=== PATIENT | male | born 1940 | race Caucasian/White ===

== ENCOUNTER → 2017-02-15 | Outpatient (CLI) | payer OTHER ==
[~2017-02-15] MED LIST: ASPEC81; HYDC25 PO; LISI-725 PO; SIMV10TA2 PO
[2017-02-15 12:32] LABS: BASO % 0.1 %; BASO ABS # 0.01 K/uL (0-0.2); COMPLETE YES; EOS % 5.3 %; HEMATOCRIT 45.7 % (42-52); IG% 0.3 %; LYMPH % 30.7 %; LYMPH ABS # 2.19 K/uL (1.2-3.4); MEAN CORPUSCULAR HEMOGLOBIN 30.7 pg (25-34); MEAN CORPUSCULAR HGB CONC 33.7 g/dl (32-36); MEAN PLATELET VOLUME 9.3 fL (7.4-10.4); MONO % 11.3 %; NEUT % 52.3 %; PLATELET COUNT 236 K/uL (130-400); RED BLOOD COUNT 5.02 M/uL (4.7-6.1); WHITE BLOOD COUNT 7.14 K/uL (4.8-10.8)
[2017-02-15 12:49] LABS: ESTIMATED AVERAGE GLUCOSE 126 mg/dl; HA1C FLAG Normal (Normal)
[2017-02-15 12:58] LABS: ALT/SGPT 43 U/L (12-78); AST/SGOT 26 U/L (15-37); BLOOD UREA NITROGEN 14 mg/dl (7-18); BUN/CREATININE RATIO 12.8 (10-20); CARBON DIOXIDE 30 mmol/L (21-32); CHLORIDE 102 mmol/L (98-107); CHOLESTEROL 149 mg/dl (0-200); GLUCOSE 99 mg/dl (70-99); SODIUM 139 mmol/L (136-145)
[2017-02-15 13:01] LABS: ALB/GLOB RATIO 1.2 (0.9-2); ALKALINE PHOSPHATASE 56 U/L (45-117); CHOLESTEROL/HDL RATIO 2.7; HDL CHOLESTEROL 56 mg/dl; LDL CHOLESTEROL CALCULATED 83 mg/dl; TRIGLYCERIDES 52 mg/dl (0-150); VERY LOW DENSITY LIPOPROT CALC 10 mg/dl
[2017-02-15 13:02] LABS: URINE APPEARANCE CLEAR (CLEAR); URINE BILIRUBIN NEG (NEG); URINE COLOR YELLOW; URINE EPITHELIAL CELL AUTO 0-5 /lpf (0-5); URINE NITRITE NEG (NEG); URINE PH 6.5 (4.5-7.5); URINE SPECIFIC GRAVITY 1.012 (1.000-1.030); UROBILINOGEN NEG (NEG); ZZUR CULT IF INDIC CLEAN CATCH NO
[2017-02-15 13:06] LABS: MANUAL MICROSCOPIC REQUIRED? NO; REVIEW REQ? NO
[2017-02-15 13:12] LABS: CALCIUM 9.2 mg/dl (8.5-10.1)
--- NOTE | 2017-02-21 08:43 | CODING QUERY MEDICAL NECESSITY ---
SUPPORTING DIAGNOSIS NEEDED Dr. Sharma, A supporting diagnosis is required for the test/procedure performed on this patient in order for us to be reimbursed by the patient's insurance. Please provide a supporting diagnosis for the following test/procedure listed below next to the test name along with your signature. *If there is no additional diagnosis for this patient that would support the following test/procedure please document that below next to the test/procedure. Test(s)/Procedure(s) that require a supporting diagnosis: * [id number] GLYCATED HEMOGLOBIN DIAGNOSIS: DATE OF SERVICE: 02/15/17 Provider Signature: Date: Thank you [facility] Information Management Once completed, please kindly fax back to [phone] For questions please call [phone]
== END | disposition home or self-care (01) ==
LOC: C.LABBFT 07:48
PROVIDERS: ATTEND Internal Medicine
DX: R73.03 Prediabetes (principal); E55.9 Vitamin D deficiency, unspecified; E78.5 Hyperlipidemia, unspecified

== ENCOUNTER 2017-12-08 21:01 | Emergency (ER) | payer OTHER ==
[~2017-12-08] VITALS: Ht 170.2 cm; Wt 98.5 kg
[~2017-12-08 21:01] MED LIST changes: -ASPEC81; +ASPEC81 PO
[2017-12-08 21:04] VITALS: Ht 170.2 cm; Wt 98.5 kg
[2017-12-08] MEDS ORDERED: DILT240C48 PO (21:54)
[2017-12-08] MEDS ORDERED: FINA5TAB PO (21:56)
[2017-12-08] MEDS ORDERED: LPT/40 PO (21:56)
[2017-12-08] MEDS ORDERED: FLM4 PO (21:56)
--- NOTE | 2017-12-08 22:00 | EMERGENCY ROOM VISIT NOTE ---
History Report prepared by Est[place]: Emily Richardson Under the Supervision of: Doug BernardoO. First contact with patient: 21:30 Chief Complaint: FALL Stated Complaint: FALL, LACERATION ON ARM & HEAD, ETOH History of Present Illness The patient is a 77 year old male who presents to the Emergency Room with complaints of persistent head trauma that occurred secondary to falling prior to arrival. He reports that he was drinking heavily prior to his fall. A family friend states that the patient was stumbling while walking, noting the patient fell while walking up the stairs and hit his head on a large rock. The family friend states that the patient lost consciousness for a few minutes and when he woke up, he did not remember falling. The patient denies any current pain. He notes that his Tetanus shot is up to date. HPI limited due to patient being intoxicated. Source of History: patient History Limited By: intoxication Onset: prior to arrival Position: head Quality: other (head trauma) Timing: other (persistent) Associated Symptoms: + LOC Review of Systems See HPI for pertinent positives & negatives. A total of 10 systems reviewed and were otherwise negative. 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 Family History Diabetes mellitus Heart disease Hypertension Social History Smoking Status: Never Smoker Alcohol Use: none Drug Use: none Marital Status: Occupation Status: retired Current/Historical Medications Scheduled Aspirin Enteric Coated (Ecotrin Or Generic *), 1 TAB PO HS Atorvastatin (Lipitor), 40 MG PO HS Diltiazem Hcl Coated Beads (Cartia Xt), 1 CAP PO QAM Finasteride (Proscar), 5 MG PO QAM Hydrochlorothiazide (Hctz *), 25 MG PO HS Lisinopril (Zestril), 20 MG PO DAILY Tamsulosin HCl (Tamsulosin HCl), 1 TAB PO HS Allergies Coded Allergies: No Known Allergies (Verified , 12/08/17) Physical Exam Vital Signs Date Time Temp Pulse Resp B/P (MAP) Pulse Ox O2 Delivery O2 Flow Rate FiO2 12/08/17 23:56 82 18 128/87 95 12/08/17 22:22 56 20 98 Room Air 12/08/17 21:50 Room Air 12/08/17 21:11 56 12/08/17 21:04 57 19 163/77 97 Room Air Physical Exam GENERAL: Patient is awake, alert, non-anxious, but intoxicated. EYES: The conjunctivae are clear. The pupils are round and reactive. EARS, NOSE, MOUTH AND THROAT: 2.5cm laceration on occipital scalp. The nose is without any evidence of any deformity. Mucous membranes are moist tongue is midline NECK: Poorly fitting cervical collar applied prior to arrival. No tenderness noted. Range of motion appeared unrestricted. RESPIRATORY: Normal respiratory effort is noted there is no evidence of wheezing rhonchi or rales CARDIOVASCULAR: Regular rate and rhythm noted there no murmurs rubs or gallops normal S1 normal S2 GASTROINTESTINAL: The abdomen is soft. Bowel sounds are present in all quadrants. Abdomen is nontender PELVIS: The Pelvis is stable. No tenderness to palpation is noted. BACK: No midline tenderness or or step-off noted range of motion in flexion extension as well as rotation no signs of muscle spasm noted MUSCULOSKELETAL/EXTREMITIES: There is no evidence of gross deformity full range of motion is noted in the hips and shoulders SKIN: Skin tare on right forearm, no active bleeding noted. NEUROLOGIC: Intoxicated but oriented to person, place, and situation. Moves all extremities well. Medical Decision & Procedures ER Provider Diagnostic Interpretation: Radiology results as stated below per my review and radiologist interpretation: CERVICAL SPINE W/O CLINICAL HISTORY: 77 years-old Male presenting with fall, posterior head laceration. TECHNIQUE: Multidetector CT of the cervical spine was performed without the use of intravenous contrast. IV contrast: None. A dose lowering technique was used consistent with the principles of ALARA (as low as reasonably achievable). COMPARISON: None. CT DOSE (mGy.cm): The estimated cumulative dose is 2038.83 mGy.cm. FINDINGS: Precision Agronomist topogram: Unremarkable. Straightening of normal cervical lordosis. No acute fracture or subluxation. Vertebral bodies maintain normal height and alignment. Intervertebral disc height loss noted at C5-6 and C6-7. Facet arthropathy also evident. No significant bony spurring to narrow the spinal canal. Disc osteophyte complexes/uncovertebral hypertrophy and facet arthropathy result in osseous neural foraminal narrowing on the right at its 3, severe left at C3-4, moderate bilateral at C5-6, and mild bilateral at C6-7. Fluid noted in the left mastoid air cells. Skull base intact. Lung apices clear. IMPRESSION: 1. No acute osseous injury. 2. Multilevel degenerative changes with very degrees of osseous neural foraminal narrowing. Electronically signed by: Alli Farfan M.D. 12/08/2017 10:21 PM Dictated Date/Time: 12/08/2017 10:16 PM HEAD WITHOUT CONTRAST (CT) CLINICAL HISTORY: 77 years-old Male presenting with fall. TECHNIQUE: Multidetector CT imaging of the head was performed without the use of intravenous contrast. IV contrast: None. A dose lowering technique was used consistent with the principles of ALARA (as low as reasonably achievable). COMPARISON: None. CT DOSE (mGy.cm): The estimated cumulative dose is 2038.83 inclusive of the cervical spine. FINDINGS: Precision Agronomist topogram: Unremarkable. Ventricles and sulci normal in size. Brain parenchyma normal in appearance with preserved martinez-white differentiation. No mass effect or midline shift. No hemorrhage or acute territorial infarct. No extra-axial fluid collection. Thickening in the right maxillary sinus. Calvarium intact. IMPRESSION: 1. No acute intracranial abnormality. Electronically signed by: Alli Farfan M.D. 12/08/2017 10:16 PM Dictated Date/Time: 12/08/2017 10:14 PM Laboratory Results 12/08/17 22:43 Test 12/08/17 22:43 Anion Gap 10.0 mmol/L (3-11) Est Creatinine Clear Calc Drug Dose 72.8 ml/min Estimated GFR () 89.1 Estimated GFR (Non- 76.9 BUN/Creatinine Ratio 17.7 (10-20) Calcium Level 8.8 mg/dl (8.5-10.1) Ethyl Alcohol mg/dL 169.0 mg/dl (0-3) Laboratory results per my review. Procedure Location: occipital scalp Total length: 2.5 cm Complexity: low Verbal consent was obtained after the risks and benefits were explained, including but not limited to bleeding, scarring, infection, pain, and bone/joint /nerve damage. At this time, the risks of the procedure are less than the risks of NOT performing the procedure. A time out was taken and the correct patient and site identified. The skin was prepped with betadine. Copious irrigation was performed using normal saline solution. The skin was re-prepped with betadine and a sterile field set. The wound was explored for foreign bodies and none found. Examination revealed no injury to deep structures such as tendons, bone, or significant blood vessels. Debridement was not performed. The wound edges were approximated using 11 skin coral. Hemostasis and excellent approximation was achieved. Antibacterial ointment and a sterile dressing applied. Detailed wound care instructions and signs and symptoms of infection reviewed with the patient and friends. No complications and the patient tolerated the procedure well. ED Course 2131: The patient was evaluated in room B6. A complete history and physical examination were performed. 2302: Upon reevaluation, the patient is resting comfortably. I discussed the results and treatment plan with him and his friends. They verbalized agreement of the treatment plan. The patient was discharged home. Medical Decision Prior records/ancillary studies reviewed. Triage Nursing notes reviewed. Additional history obtained from a family friend who was present during the fall. The patient's history was concerning for traumatic injury Differential diagnosis: Etiologies such as fracture, dislocation, intra-abdominal, pneumothorax, intrathoracic , intracranial, neurologic, as well as other traumatic pathologies were entertained. The patient is a 77-year-old male who presented to the emergency department for an evaluation of head injury. The patient arrived with family friends. He was walking upstairs and fell striking the back of his head. He also suffered a skin tear to his right forearm. According to the family friends the patient did have a loss of consciousness and was somewhat confused afterwards but admitted to drinking alcohol prior to the fall. The patient had the laceration repaired using skin coral. He also had wound care of the right forearm through nursing. I discussed the patient's laboratory and radiographic studies with him. He was reevaluated multiple times. He was much less clinically intoxicated on final reevaluation. He was encouraged to follow-up with his primary care physician as soon as possible. He was also encouraged to have coral removed in 7-10 days. I also recommended that he avoid any further alcoholic beverages for the next 24 hours. He was also encouraged to avoid operating any heavy machinery including driving a vehicle for next 24 hours. Head Trauma GCS Score: 15 Medication Reconcilliation Current Medication List: was personally reviewed by me Blood Pressure Screening Patient's blood pressure: Elevated blood pressure Blood pressure disposition: Elevated BP felt to be situational Impression Primary Impression: Alcohol intoxication Additional Impressions: Fall Head injury Skin tear of forearm without complication Occipital scalp laceration Scribe Attestation The scribe's documentation has been prepared under my direction and personally reviewed by me in its entirety. I confirm that the note above accurately reflects all work, treatment, procedures, and medical decision making performed by me. Departure Information Dispostion Home / Self-Care Referrals Albert Sharma M.D. (PCP) Forms HOME CARE DOCUMENTATION FORM, IMPORTANT VISIT INFORMATION Patient Instructions My [facility] Additional Instructions Continue using Tylenol as directed for pain. Follow-up with your family doctor for recheck this week. I would recommend having the coral removed in 7-10 days. Do not operate any heavy machinery including driving a vehicle for the next 24 hours. Problem Qualifiers Primary Impression: Alcohol intoxication Complication of substance-induced condition: uncomplicated Qualified Codes: F10.920 - Alcohol use, unspecified with intoxication, uncomplicated Additional Impressions: Fall Encounter type: initial encounter Qualified Codes: W19.XXXA - Unspecified fall, initial encounter Head injury Encounter type: initial encounter Qualified Codes: S09.90XA - Unspecified injury of head, initial encounter Skin tear of forearm without complication Encounter type: initial encounter Laterality: right Qualified Codes: S51.811A - Laceration without foreign body of right forearm, initial encounter Occipital scalp laceration Encounter type: initial encounter Qualified Codes: S01.01XA - Laceration without foreign body of scalp, initial encounter
--- NOTE | 2017-12-08 22:18 | DIAGNOSTIC IMAGING REPORT ---
HEAD WITHOUT CONTRAST (CT) CLINICAL HISTORY: 77 years-old Male presenting with fall. TECHNIQUE: Multidetector CT imaging of the head was performed without the use of intravenous contrast. IV contrast: None. A dose lowering technique was used consistent with the principles of ALARA (as low as reasonably achievable). COMPARISON: None. CT DOSE (mGy.cm): The estimated cumulative dose is 2038.83 inclusive of the cervical spine. FINDINGS: Plodding Operator topogram: Unremarkable. Ventricles and sulci normal in size. Brain parenchyma normal in appearance with preserved martinez-white differentiation. No mass effect or midline shift. No hemorrhage or acute territorial infarct. No extra-axial fluid collection. Thickening in the right maxillary sinus. Calvarium intact. IMPRESSION: 1. No acute intracranial abnormality. Electronically signed by: Alli Farfan M.D. 12/08/2017 10:16 PM Dictated Date/Time: 12/08/2017 10:14 PM
--- NOTE | 2017-12-08 22:22 | DIAGNOSTIC IMAGING REPORT ---
CERVICAL SPINE W/O CLINICAL HISTORY: 77 years-old Male presenting with fall, posterior head laceration. TECHNIQUE: Multidetector CT of the cervical spine was performed without the use of intravenous contrast. IV contrast: None. A dose lowering technique was used consistent with the principles of ALARA (as low as reasonably achievable). COMPARISON: None. CT DOSE (mGy.cm): The estimated cumulative dose is 2038.83 mGy.cm. FINDINGS: Animal Scientist topogram: Unremarkable. Straightening of normal cervical lordosis. No acute fracture or subluxation. Vertebral bodies maintain normal height and alignment. Intervertebral disc height loss noted at C5-6 and C6-7. Facet arthropathy also evident. No significant bony spurring to narrow the spinal canal. Disc osteophyte complexes/uncovertebral hypertrophy and facet arthropathy result in osseous neural foraminal narrowing on the right at its 3, severe left at C3-4, moderate bilateral at C5-6, and mild bilateral at C6-7. Fluid noted in the left mastoid air cells. Skull base intact. Lung apices clear. IMPRESSION: 1. No acute osseous injury. 2. Multilevel degenerative changes with very degrees of osseous neural foraminal narrowing. Electronically signed by: Alli Farfan M.D. 12/08/2017 10:21 PM Dictated Date/Time: 12/08/2017 10:16 PM
[2017-12-08 23:17] LABS: CALCIUM 8.8 mg/dl (8.5-10.1); CREATININE 0.95 mg/dl (0.60-1.40); POTASSIUM 3.4 mmol/L (3.5-5.1)
[2017-12-08 23:56] VITALS: BP 128/87; PULSE 82; O2SAT 95
== END 2017-12-08 23:57 | disposition home or self-care (01) ==
LOC: EDBD 21:01 → C.EDB 21:02
DX: S01.01XA Laceration without foreign body of scalp, initial encounter (principal); S51.811A Laceration without foreign body of right forearm, initial encounter; W01.198A Fall on same level from slipping, tripping and stumbling with subsequent striking against other object, initial encounter; F10.920 Alcohol use, unspecified with intoxication, uncomplicated; R40.2412 Glasgow coma scale score 13-15, at arrival to emergency department; I10 Essential (primary) hypertension; E78.5 Hyperlipidemia, unspecified; Z79.82 Long term (current) use of aspirin; Z83.3 Family history of diabetes mellitus; Z82.49 Family history of ischemic heart disease and other diseases of the circulatory system

== ENCOUNTER → 2017-12-13 | Outpatient (CLI) | payer OTHER ==
[~2017-12-13] MED LIST changes: +DILT240C48 PO; +FINA5TAB PO; +FLM4 PO; +LPT/40 PO; -SIMV10TA2 PO
[2017-12-13 12:51] LABS: ALT/SGPT 49 U/L (12-78); BLOOD UREA NITROGEN 17 mg/dl (7-18); CARBON DIOXIDE 29 mmol/L (21-32); CHOLESTEROL 135 mg/dl (0-200); CREATININE 1.13 mg/dl (0.60-1.40); GLUCOSE 100 mg/dl (70-99); POTASSIUM 3.6 mmol/L (3.5-5.1); SODIUM 134 mmol/L (136-145)
[2017-12-13 12:55] LABS: ALKALINE PHOSPHATASE 74 U/L (45-117); AST/SGOT 32 U/L (15-37); LDL CHOLESTEROL CALCULATED 69 mg/dl; TOTAL PROTEIN 7.4 gm/dl (6.4-8.2)
== END | disposition home or self-care (01) ==
LOC: C.LABBFT 09:32
PROVIDERS: ATTEND Internal Medicine
DX: R09.82 Postnasal drip (principal); E78.5 Hyperlipidemia, unspecified; I10 Essential (primary) hypertension

== ENCOUNTER 2022-02-09 10:08 | Inpatient (IN) ==
[2022-02-09] MEDS ORDERED: FUROSEMIDE 40 MG/4 ML VIAL IV ONE ×2 (10:26→13:37)
--- NOTE | 2022-02-09 10:43 | Emergency Department Note ---
History of Present Illness General Chief complaint: Respiratory Problems Stated complaint: HARD TO BREATHE, CHEST PAIN, A LOT OF PHLEM Time Seen by Provider: 02/09/22 10:22 Source: patient Mode of arrival: ambulatory Limitations: physical limitation History of Present Illness Provider complaint: shortness of breath This is an 81-year-old male who presents with family at bedside due to concern for shortness of breath. Triage nurses concern for patient appearance due to increased work of breathing and noted hypoxia, he was immediately placed in a bed. Patient was placed on oxygen via nasal cannula initially. Upon initially evaluating the patient I immediately called RT for BiPAP. Patient is significantly hard of hearing and with increased work of breathing was unable to provide extensive history. Family at bedside was to help with history. Family stated patient became significantly short of breath this morning. No prior history of COPD, no history of CHF or other heart problems that they are aware of. Family states his HCTZ was stopped on Saturday due to concern for dizziness. Patient denies any chest pain or leg swelling. He denies fevers, chills, or recent URI symptoms. He does admit to a slight cough. With additional questioning, family eventually added the patient has been sleeping in his recliner over the last several nights as it was harder to lay flat to sleep. Patient denies any pain anywhere at this time. No prior similar events. Pt seen during a time of high acuity and national emergency pandemic while wearing PPE. Home Medications Medication Instructions Recorded Confirmed Type atorvastatin 40 mg tablet 40 mg PO DAILY #90 tab 04/07/21 02/09/22 Rx finasteride 5 mg tablet 5 mg PO DAILY #90 tab 09/27/21 02/09/22 Rx diltiazem HCl 240 mg 240 mg PO DAILY #90 cap 09/28/21 02/09/22 Rx capsule,extended release 24 hr (Cartia XT) tamsulosin 0.4 mg capsule 0.4 mg PO DAILY #90 cap 10/03/21 02/09/22 Rx lisinopril 20 mg tablet 20 mg PO DAILY #90 tab 01/30/22 02/09/22 Rx omega 3,6,9 combination no.7 92 mg 92 mg PO DAILY 02/09/22 02/09/22 History (43 mg-22 [id number]) chew tablet Allergies Allergy/AdvReac Type Severity Reaction Status Date / Time No Known Drug Allergies Allergy Verified 02/09/22 12:34 Past Med/Surg History Medical History (Updated 02/10/22 @ 16:59 by Violeta Blackwood DO) Benign prostatic hyperplasia Disequilibrium Hearing loss Hypertension Male erectile disorder of organic origin Mitral regurgitation Prediabetes Tinnitus Vitamin D deficiency Surgical History History of transurethral prostatectomy (09/14/12) Family History Father Colorectal cancer Mother Cancer Brother Laryngeal cancer Sister Alzheimer disease Other No family history of adverse response to anesthesia No family history of bleeding disorder Denies family history of Ovarian cancer Prostate cancer Breast cancer Social History Smoking Status: Never smoker Age Started Using Tobacco: 15; Second Hand Exposure: No; Hx Alcohol Use: Yes Alcohol type: beer Alcohol Intake Frequency Comment: About 2 alcoholic beverages per day Hx Substance Use: No Preferred Language: Iraqi Communication Ability: Effective Visual Impairment: No Limitations Hearing Ability: Use of Hearing Aid marital status: / Current Living Situation: Alone current occupational status: retired Feels Safe at Home: Yes caffeine: Yes Dental Care, Regularly: No Physical Activity Frequency: 1-2 Times per Week Seatbelt Use: always Review of Systems A total of 10 systems reviewed and were otherwise negative All systems reviewed & are unremarkable except as noted in HPI & below Physical Exam Vital Signs Vital Signs - 24 hr 02/09/22 10:09 02/09/22 10:10 02/09/22 10:15 Temperature 36.4 C L Temperature Source Temporal Artery Scan Pulse Rate 122 H Pulse Rate [Apical] Respiratory Rate 22 Respiratory Effort / Characteristics Respiratory Depth Respiratory Pattern Blood Pressure [Left Arm] Blood Pressure Mean [Left Arm] Blood Pressure Position [Left Arm] Pulse Oximetry 90 88 L Oxygen Delivery Method Room Air Room Air Room Air Oxygen Flow Rate Fraction of Inspired Oxygen SaO2/FiO2 Ratio Sepsis Recent Fever Within 48 Hours No Sepsis New/Unexplained Change in Mental Status N/A Sepsis Action Taken by Nursing No Action Required 02/09/22 10:20 02/09/22 10:32 02/09/22 12:00 Temperature Temperature Source Pulse Rate 117 H Pulse Rate [Apical] 123 H 88 Respiratory Rate 34 H 40 H 21 Respiratory Effort / Characteristics Non-Labored Spontaneous Spontaneous Labored Short of Breath Non-Labored Spontaneous Respiratory Depth Normal Normal Respiratory Pattern Tachypnea Blood Pressure [Left Arm] 152/121 H 117/75 Blood Pressure Mean [Left Arm] 131 89 Blood Pressure Position [Left Arm] Sitting Sitting Pulse Oximetry 91 94 95 Oxygen Delivery Method Nasal Cannula BiPAP Oxygen Flow Rate 2 Fraction of Inspired Oxygen 30 SaO2/FiO2 Ratio Sepsis Recent Fever Within 48 Hours Sepsis New/Unexplained Change in Mental Status Sepsis Action Taken by Nursing 02/09/22 12:30 02/09/22 13:15 02/09/22 13:25 Temperature Temperature Source Pulse Rate Pulse Rate [Apical] 96 H 110 H 118 H Respiratory Rate 18 18 28 H Respiratory Effort / Characteristics Non-Labored Spontaneous Non-Labored Labored Respiratory Depth Normal Respiratory Pattern Blood Pressure [Left Arm] 147/87 H 163/118 H 146/105 H Blood Pressure Mean [Left Arm] 107 133 118 Blood Pressure Position [Left Arm] Pulse Oximetry 100 93 96 Oxygen Delivery Method BiPAP Nasal Cannula BiPAP Oxygen Flow Rate 3 Fraction of Inspired Oxygen 30 SaO2/FiO2 Ratio 320 Sepsis Recent Fever Within 48 Hours Sepsis New/Unexplained Change in Mental Status Sepsis Action Taken by Nursing GENERAL: alert, ill appearing, well nourished, severe distress, non-toxic, [place] EYE EXAM: normal conjunctiva, PERRL and EOM's grossly intact OROPHARYNX: no exudate, no erythema, lips, buccal mucosa, and tongue normal and mucous membranes are moist NECK: supple, no nuchal rigidity, no adenopathy, non-tender LUNGS: Tachypnea, increased work of breathing, rales bilaterally throughout, accessory muscle use noted HEART: no murmurs, S1 normal and S2 normal ABDOMEN: abdomen soft, non-tender, normo-active bowel sounds, no masses, no rebound or guarding. BACK: Back is symmetrical on inspection and there is no deformity, no midline tenderness, no CVA tenderness. SKIN: no rashes and no bruising, diaphoretic UPPER EXTREMITIES: upper extremities are grossly normal. FROM, nml pulses b/l. LOWER EXTREMITIES: 1+ b/l pitting edema. FROM, nml pulses b/l. NEURO EXAM: Normal sensorium, cranial nerves II-XII grossly intact, normal speech, no gross weakness of arms, no gross weakness of legs. Gross sensation intact. Course Course 1032: RT called and at bedside. 1048: Patient states BIPAP helping, still with incr WOB and tachypnea. 1105: Heart rate improved, patient's tachypnea slowly resolving. Patient continues to state the BiPAP helps. Administered Medications Discontinued Medications Aspirin (Aspirin Chew 324 Mg) 324 mg PO NOW STA Stop: 02/09/22 12:26 Last Admin: 02/09/22 12:45 Dose: 324 mg Documented by: [id number] Furosemide (Furosemide 40 Mg/4 Ml Vial) 40 mg IV ONE ONE Stop: 02/09/22 10:27 Last Admin: 02/09/22 10:33 Dose: 40 mg Documented by: [id number] Furosemide (Furosemide 40 Mg/4 Ml Vial) Confirm Administered Dose 40 mg IV .STK- MED ONE Stop: 02/09/22 13:38 Last Admin: 02/09/22 13:40 Dose: 40 mg Documented by: [id number] Nitroglycerin (Nitroglycerin 2% Ointment 30gm Tube) 1 inch EXT NOW STA Stop: 02/09/22 12:32 Last Admin: 02/09/22 12:44 Dose: 1 inch Documented by: [id number] Nitroglycerin/Dextrose (Nitroglycerin/D5w 100 Mcg/Ml Btl) Confirm Administered Dose 25 mg .ROUTE .STK-MED ONE Stop: 02/09/22 13:34 Last Admin: 02/09/22 13:41 Dose: 10 mcg Documented by: [id number] Cosigned by: [id number] Critical Care Time Critical Care Time: Yes Total Critical Care Time: 48 Critical care of 48 min performed to assess and manage high likelihood of life- threatening respiratory failure, involving labs and imaging performed with assessment to evaluate respiratory failure diagnosis with frequent reassessment. This time includes bedside time, treatment discussions with patient/family/consultants, documentation time and excludes procedure time. Medical Decision Making Differential Diagnosis Differential diagnoses includes but is not limited to pneumonia, bronchitis, COPD/Asthma exacerbation, pneumothorax, pulmonary embolism, congestive heart fa ilure, acute coronary syndrome Medical Records Attestation: I reviewed the patient's medical records. Home Medications Current Medication List: was personally reviewed by me Laboratory Data Attestation: I reviewed the patient's lab results. Result diagrams: 02/09/22 10:30 02/09/22 11:26 Lab Results 02/09/22 02/09/22 02/09/22 Range/Units 10:30 10:30 10:30 WBC 14.79 H (4.8-10.8) K/uL RBC 4.57 L (4.7-6.1) M/uL Hgb 14.2 (14.0-18.0) g/dL Hct 42.5 (42-52) % MCV 93.0 (80-100) fL MCH 31.1 (25-34) pg MCHC 33.4 (32-36) g/dL RDW Std Deviation 44.1 (36.4-46.3) fL RDW Coeff of Asiya 13.0 (11.5-14.5) % Plt Count 263 (130-400) K/uL MPV 10.0 (7.4-10.4) fL Immature Gran % (Auto) 0.2 % Neut % (Auto) 69.8 % Lymph % (Auto) 21.4 % [place] % (Auto) 7.4 % Eos % (Auto) 1.1 % Baso % (Auto) 0.1 % Neut # (Auto) 10.31 H (1.4-6.5) K/uL Lymph # (Auto) 3.16 (1.2-3.4) K/uL [place] # (Auto) 1.10 H (0.11-0.59) K/uL Eos # (Auto) 0.17 (0-0.5) K/uL Baso # (Auto) 0.02 (0-0.2) K/uL Immature Gran # (Auto) 0.03 H (0.00-0.02) K/uL PT 10.8 (9.0-12.0) Seconds INR 1.0 (0.9-1.1) APTT 26.3 (21.0-31.0) Seconds PTT Ratio 1.0 POC pH (7.35-7.45) POC pCO2 (35-46) mmHg POC pO2 (80-95) mmHg POC HCO3 (19-24) aida/L POC Total CO2 (24-31) mmol/L POC Base Excess (-9-1.8) aida/L POC ABG O2 Sat (90-95) % Sodium (136-145) mmol/L Potassium (3.5-5.1) mmol/L Chloride (98-107) mmol/L Carbon Dioxide (21-32) mmol/L Anion Gap (3-11) BUN (6-23) mg/dl Creatinine (0.6-1.4) mg/dl Est Cr Clr Drug Dosing ml/min Est GFR ( Amer) ml/min Est GFR (Non-Af Amer) ml/min BUN/Creatinine Ratio (10-20) Glucose (70-99(Fasting)) mg/dl Calcium (8.5-10.1) mg/dl Magnesium (1.7-2.4) mg/dl Total Bilirubin (0.2-1.0) mg/dl AST (13-39) U/L ALT (7-52) U/L Alkaline Phosphatase (34-104) U/L Troponin I High Sens (0-20) pg/ml B-Natriuretic Peptide 335 H (0-100) pg/ml Total Protein (6.0-8.3) gm/dl Albumin (3.4-5.0) gm/dl Globulin (2.5-4.0) gm/dl Albumin/Globulin Ratio (0.9-2) SARS-CoV-2 (PCR) (Negative) Influenza Type A (PCR) (Neg) Influenza Type B (PCR) (Neg) RSV (RT-PCR) (Neg) 02/09/22 02/09/22 02/09/22 Range/Units 10:43 11:26 14:32 WBC (4.8-10.8) K/uL RBC (4.7-6.1) M/uL Hgb (14.0-18.0) g/dL Hct (42-52) % MCV (80-100) fL MCH (25-34) pg MCHC (32-36) g/dL RDW Std Deviation (36.4-46.3) fL RDW Coeff of Asiya (11.5-14.5) % Plt Count (130-400) K/uL MPV (7.4-10.4) fL Immature Gran % (Auto) % Neut % (Auto) % Lymph % (Auto) % [place] % (Auto) % Eos % (Auto) % Baso % (Auto) % Neut # (Auto) (1.4-6.5) K/uL Lymph # (Auto) (1.2-3.4) K/uL [place] # (Auto) (0.11-0.59) K/uL Eos # (Auto) (0-0.5) K/uL Baso # (Auto) (0-0.2) K/uL Immature Gran # (Auto) (0.00-0.02) K/uL PT (9.0-12.0) Seconds INR (0.9-1.1) APTT (21.0-31.0) Seconds PTT Ratio POC pH 7.38 (7.35-7.45) POC pCO2 43 (35-46) mmHg POC pO2 63 L (80-95) mmHg POC HCO3 25 H (19-24) aida/L POC Total CO2 26 (24-31) mmol/L POC Base Excess 0.0 (-9-1.8) aida/L POC ABG O2 Sat 91.0 (90-95) % Sodium 135 L (136-145) mmol/L Potassium 3.8 (3.5-5.1) mmol/L Chloride 102 (98-107) mmol/L Carbon Dioxide 25 (21-32) mmol/L Anion Gap 8 (3-11) BUN 16 (6-23) mg/dl Creatinine 1.19 (0.6-1.4) mg/dl Est Cr Clr Drug Dosing 49.7 ml/min Est GFR ( Amer) 66.0 ml/min Est GFR (Non-Af Amer) 56.9 ml/min BUN/Creatinine Ratio 13.4 (10-20) Glucose 189 H (70-99(Fasting)) mg/dl Calcium 9.2 (8.5-10.1) mg/dl Magnesium 2.0 (1.7-2.4) mg/dl Total Bilirubin 0.5 (0.2-1.0) mg/dl AST 22 (13-39) U/L ALT 20 (7-52) U/L Alkaline Phosphatase 62 (34-104) U/L Troponin I High Sens 478.1 H* (0-20) pg/ml B-Natriuretic Peptide (0-100) pg/ml Total Protein 6.9 (6.0-8.3) gm/dl Albumin 4.2 (3.4-5.0) gm/dl Globulin 2.7 (2.5-4.0) gm/dl Albumin/Globulin Ratio 1.6 (0.9-2) SARS-CoV-2 (PCR) NEGATIVE (Negative) Influenza Type A (PCR) Negative (Neg) Influenza Type B (PCR) Negative (Neg) RSV (RT-PCR) Negative (Neg) Imaging Data Radiologist's Impression: Chest X-Ray 02/09/22 10:26 XR chest 1V portable CLINICAL HISTORY: dyspnea. COMPARISON STUDY: No previous studies for comparison. TECHNIQUE: 1 view of the chest FINDINGS: Single frontal view of the chest demonstrates the cardiomediastinal silhouette to be within normal limits. There is a decreased inspiratory effort with elevation of the hemidiaphragms and crowding of the bronchovascular markings at the lung bases and centrally. Additionally, there is evidence for central vascular congestion and ill-defined interstitial and alveolar densities present bilaterally. While this may relate to interstitial edema, the presence of a viral type pneumonitis cannot be completely excluded. There are no confluent alveolar opacities or air bronchograms. There is no evidence for pleural effusion. There is no acute osseous pathology. IMPRESSION: 1. Decreased inspiration with central vascular congestion 2. This also ill-defined interstitial and alveolar densities bilaterally which may represent additional interstitial edema. However, an early viral type pneumonitis cannot be excluded based on this study. 3. Correlation with Covid testing is recommended. ACT 112: Negative or not required by law. Electronically signed by: Eric Jimenez M.D. 02/09/2022 11:13 AM ECG Data Attestation: I personally reviewed and interpreted this ECG as follows: Indication: + SOB/dyspnea Rate (beats per minute): 122 Rhythm: + sinus tachycardia ECG Intervals/blocks: + Left bundle branch block and + Prolonged QT ECG [place]: + Normal ECG ST segments: + Nonspecific ST abnormalities Additional Comments: Repeat EKG performed shows a sinus rhythm at 89 with a first-degree AV block, normal axis, left bundle branch block, nonspecific ST/T wave changes Patient's prior EKGs were from 2006 and showed a normal sinus rhythm with no evidence of a bundle branch block at that time MDM Narrative An order was placed for continuous cardiac monitoring. The monitor shows a rate of _106__ with _sinus tachycardia_ rhythm. This is an 81-year-old male who presented to triage and was found to be in significant respiratory distress. He was immediately placed in room and I was called to the room urgently. Patient with significant increased work of breathing, audible rales and tachypnea. Respiratory therapy contacted and BiPAP initiated. IV was established, EKG performed which did show left bundle branch block over patient appeared to have a rhythm change while at bedside as I was watching telemetry. I did ask for repeat EKG. Labs are drawn and sent, IV Lasix ordered. Patient slowly began to feel improved on BiPAP, as heart rate was decreasing and eventually patient's work of breathing decreased as did his respiratory rate. Chest x-ray did not reveal fulminant pulmonary edema despite clinical appearance. Patient's BNP and troponin were elevated on testing. Mild leukocytosis I suspect from stress to margination and increased work of breathing. No evidence of pneumonia on chest x-ray. Patient had denied chest pain, and family stated he never complained of chest pain at home. Case was discussed with the hospitalist for additional evaluation and management. Patient remained otherwise hemodynamically stable with improving symptoms and vital signs throughout. Impression & Plan Respiratory failure with hypoxia, Hypertension, Elevated troponin, Elevated brain natriuretic peptide (BNP) level Discharge Plan Visit Data Chief Complaint: Respiratory Problems Stated Complaint: HARD TO BREATHE, CHEST PAIN, A LOT OF PHLEM ED Provider: Violeta Blackwood Discharge Problem: Respiratory failure with hypoxia, Hypertension, Elevated troponin, Elevated brain natriuretic peptide (BNP) level Patient Disposition: Transfer Acute Care Hospital Condition: Serious Discharge Instructions Interventions: ED Discharge Assessment Last Done: 02/09/22 13:19 Discharge Problem: Respiratory failure with hypoxia Qualifiers: Chronicity: acute Qualified Code(s): J96.01 - Acute respiratory failure with hypoxia Hypertension Qualifiers: Hypertension type: primary hypertension Qualified Code(s): I10 - Essential (primary) hypertension
[2022-02-09 10:53] LABS: Basophils # (auto) 0.02 K/uL (0-0.2); Basophils % (auto) 0.1 %; Eosinophils # (auto) 0.17 K/uL (0-0.5); Eosinophils % (auto) 1.1 %; Hematocrit (blood only) 42.5 % (42-52); Hemoglobin 14.2 g/dL (14.0-18.0); Immature Granulocytes # (auto) 0.03 K/uL (0.00-0.02); Immature Granulocytes % (auto) 0.2 %; Lymphocytes # (auto) 3.16 K/uL (1.2-3.4); Lymphocytes % (auto) 21.4 %; Mean Corpuscular Hemoglobin 31.1 pg (25-34); Mean Corpuscular Hgb Conc 33.4 g/dL (32-36); Monocytes % (auto) 7.4 %; Neutrophils # (auto) 10.31 K/uL (1.4-6.5); Neutrophils % (auto) 69.8 %; Platelet Count 263 K/uL (130-400); RDW Standard Deviation 44.1 fL (36.4-46.3); Red Blood Count 4.57 M/uL (4.7-6.1); White Blood Count 14.79 K/uL (4.8-10.8)
--- NOTE | 2022-02-09 11:14 | XRay Report ---
XR chest 1V portable CLINICAL HISTORY: dyspnea. COMPARISON STUDY: No previous studies for comparison. TECHNIQUE: 1 view of the chest FINDINGS: Single frontal view of the chest demonstrates the cardiomediastinal silhouette to be within normal li mits. There is a decreased inspiratory effort with elevation of the hemidiaphragms and crowding of th e bronchovascular markings at the lung bases and centrally. Additionally, there is evidence for centr al vascular congestion and ill-defined interstitial and alveolar densities present bilaterally. While this may relate to interstitial edema, the presence of a viral type pneumonitis cannot be completely excluded. There are no confluent alveolar opacities or air bronchograms. There is no evidence for pl eural effusion. There is no acute osseous pathology. IMPRESSION: 1. Decreased inspiration with central vascular congestion 2. This also ill-defined interstitial and alveolar densities bilaterally which may represent addition al interstitial edema. However, an early viral type pneumonitis cannot be excluded based on this stud y. 3. Correlation with Covid testing is recommended. ACT 112: Negative or not required by law. Electronically signed by: Eric Jimenez M.D. 02/09/2022 11:13 AM
[2022-02-09 11:55] LABS: Influenza A virus by PCR Negative (Neg); Influenza B virus by PCR Negative (Neg); RSV by PCR Negative (Neg); SARS CoV2 RNA(COVID-19) InHosp NEGATIVE (Negative)
[2022-02-09 11:57] LABS: Albumin Globulin Ratio 1.6 (0.9-2); Albumin Level 4.2 gm/dl (3.4-5.0); BUN Creatinine Ratio 13.4 (10-20); Bilirubin,Total 0.5 mg/dl (0.2-1.0); Calcium 9.2 mg/dl (8.5-10.1); Creatinine Clr Calc Pharmacy 49.7 ml/min; Est GFR (Non-African American) 56.9 ml/min; Globulin 2.7 gm/dl (2.5-4.0); Potassium 3.8 mmol/L (3.5-5.1); Total Protein 6.9 gm/dl (6.0-8.3)
[2022-02-09 12:05] LABS: Troponin I High Sensitivity 478.1 pg/ml (0-20)
--- NOTE | 2022-02-09 12:20 | History & Physical Report ---
Date of Service February 09, 2022 Assessment & Plan (1) Acute WA anterior wall first episode care: Plan: - initially presented with chest pain, diaphoresis, SOB, EKG on presentation showed wide QRS tachycardia, repeat EKG 2 hours later showed sinus rhythm with new LBBB. - initial troponin 478, repeat 2 hours after initial then trend q6h until peak. - STAT echo ordered. - ASA, nitro in ED. Currently without chest pain. - case discussed with Dr. Rodney, cardiology, patient was emergently brought to cardiac catheterization, based on findings, it was decided that patient required transfer to outside facility for intervention. (2) Acute heart failure: Plan: - 2/2 acute WA. - on BIPAP, 40 IV Lasix x1 in ED. (3) Prediabetes: Plan: - diet controlled. - A1c from this month 5.8%. (4) Hypertension: Plan: - Took lisinopril, diltiazem this morning. (5) Hyperlipidemia: Plan: - continue atorvastatin 40 mg daily. (6) Benign prostatic hyperplasia: Plan: - continue proscar, flomax. - order for man to be placed. Plan: - Transfer to [facility] [place] - full code. History of Present Illness Chief Complaint: new onset SOB, chest pain Primary Care Provider: Albert Sharma MD Mr. Bailey is an 81-year-old male with past medical history of hypertension, severe hearing loss, BPH, prediabetes who presents today with chest pain and worsening shortness of breath since this morning at home. Patient reports he has had ongoing episodes of chest pain over the past week or so, both at rest and with exertional activity like going to the mailbox. States that it is not lasting more than 15 to 20 minutes and resolving on its own. However today, woke up around 8 AM and had experienced central chest pain without any radiation to shoulder/arm/back/neck/jaw. He called his daughter at 9 AM due to this as well as worsening shortness of breath at rest and wheezing, which is all completely new for him as of this morning, she also reports he was sweating profusely on their way to ED. Chest pain persisted until his arrival to ED. He was in his normal state of health last evening, slept flat in bed without orthop mikel, PND. Daughter at bedside notes besides on and off chest pain this week, he had yao in his usual state of health, no noticeable fluid retention or breathing difficulties. Meds this AM include baby aspirin as well as daily meds: diltiazem, lisinopril, atorvastatin, proscar, flomax. Of note, patient was recently DC'd from his [facility] this week due to dizziness, no other medication changes. In ED, initially presented 88% on room air, HR 122, normotensive. Wide ventricular tachycardia on EKG. troponin 478.1, BNP 335. Otherwise labs significant for WBC 14.79. Sodium borderline low 135, otherwise all electrolytes within normal limits. COVID/flu/RSV negative. Renal function at baseline. CXR with central vascular congestion, ill-defined interstitial and alveolar densities bilaterally. Patient was placed on BIPAP, received 40 mg IV Lasix. Hospitalist service consulted. Repeat EKG ordered showing sinus rhythm with 1st degree A-V block and new left bundle branch block. STAT echo ordered, case discussed with Dr. Rodney. STAT aspirin, nitroglycerin paste ordered. Allergies Allergy/AdvReac Type Severity Reaction Status Date / Time No Known Drug Allergies Allergy Verified 02/09/22 12:34 Home Medications Medication Instructions Recorded Confirmed Type atorvastatin 40 mg tablet 40 mg PO DAILY #90 tab 04/07/21 02/09/22 Rx finasteride 5 mg tablet 5 mg PO DAILY #90 tab 09/27/21 02/09/22 Rx diltiazem HCl 240 mg 240 mg PO DAILY #90 cap 09/28/21 02/09/22 Rx capsule,extended release 24 hr (Cartia XT) tamsulosin 0.4 mg capsule 0.4 mg PO DAILY #90 cap 10/03/21 02/09/22 Rx lisinopril 20 mg tablet 20 mg PO DAILY #90 tab 01/30/22 02/09/22 Rx omega 3,6,9 combination no.7 92 mg 92 mg PO DAILY 02/09/22 02/09/22 History (43 mg-22 [id number]) chew tablet Past Med/Surg History Medical History Benign prostatic hyperplasia Disequilibrium Hearing loss Hypertension Male erectile disorder of organic origin Mitral regurgitation Prediabetes Tinnitus Vitamin D deficiency Surgical History History of transurethral prostatectomy (09/14/12) Family History Father Colorectal cancer Mother Cancer Brother Laryngeal cancer Sister Alzheimer disease Other No family history of adverse response to anesthesia No family history of bleeding disorder Denies family history of Ovarian cancer Prostate cancer Breast cancer Social History Smoking Status: Never smoker Age Started Using Tobacco: 15; Second Hand Exposure: No; Hx Alcohol Use: Yes Alcohol type: beer Alcohol Intake Frequency Comment: About 2 alcoholic beverages per day Hx Substance Use: No Preferred Language: Romansh Communication Ability: Effective Visual Impairment: No Limitations Hearing Ability: Use of Hearing Aid marital status: / Current Living Situation: Alone current occupational status: retired Feels Safe at Home: Yes caffeine: Yes Dental Care, Regularly: No Physical Activity Frequency: 1-2 Times per Week Seatbelt Use: always Review of Systems Review of Systems: Constitutional: No fever/chills, weakness, fatigue, myalgias, anorexia, night sweats Eyes: No diplopia, no worsening or blurred vision ENT: severe hearing loss; no trouble swallowing Respiratory: SOB at rest, activity this AM with wheezing and diaphoresis. Cardiovascular: central chest pain since 8 am this morning without radiation, palpitations Abdomen: No pain, nausea, vomiting, diarrhea or constipation : Denies dysuria, hematuria, increased urgency/frequency, urinary retention Musculoskeletal: No joint pain, calf pain, swelling Neurologic: No weakness, numbness/tingling, or balance problems Psychiatric: No anxiety or depression Skin: No rash or itch Physical Exam Physical Exam: General: awake, alert, no apparent distress, on BIPAP but conversating well Head: Normocephalic, atraumatic ENT: PERRL, EOMI, no pharyngeal exudate, mucous membranes moist Chest: Clear to auscultation, on room air, no adventitious breath sounds Cardiac: Regular rate and rhythm, no murmur, no JVD, normal peripheral pulses, good capillary refill Abdominal: NABS x 4 quadrants, soft, nontender to palpation, no rebound, guarding or tenderness Extremities: Normal inspection, no peripheral edema or erythema, calfs nontender to palpation Psych: Normal mood and affect Neuro: AAO x 3, strength intact bilaterally and rated 5/5, no motor deficits, speech is clear, no peripheral sensory deficits Skin: no rash or erythema Results & Data Results & Data ([facility]) Vital Signs (Past 12 Hours) Vital Signs Temp Pulse Pulse Resp BP Pulse Ox 02/09/22 12:00 88 21 117/75 95 02/09/22 10:32 117 H 40 H 94 02/09/22 10:20 123 H 34 H 152/121 H 91 02/09/22 10:10 36.4 C L 122 H 22 88 L 02/09/22 10:09 90 Laboratory Results Abnormal lab results 02/09/22 02/09/22 02/09/22 Range/Units 10:30 10:30 11:26 WBC 14.79 H (4.8-10.8) K/uL RBC 4.57 L (4.7-6.1) M/uL Neut # (Auto) 10.31 H (1.4-6.5) K/uL [place] # (Auto) 1.10 H (0.11-0.59) K/uL Immature Gran # (Auto) 0.03 H (0.00-0.02) K/uL Sodium 135 L (136-145) mmol/L Glucose 189 H (70-99(Fasting)) mg/dl Troponin I High Sens 478.1 H* (0-20) pg/ml B-Natriuretic Peptide 335 H (0-100) pg/ml Diagnostic Findings Chest X-Ray 02/09/22 10:26 XR chest 1V portable CLINICAL HISTORY: dyspnea. COMPARISON STUDY: No previous studies for comparison. TECHNIQUE: 1 view of the chest FINDINGS: Single frontal view of the chest demonstrates the cardiomediastinal silhouette to be within normal limits. There is a decreased inspiratory effort with elevation of the hemidiaphragms and crowding of the bronchovascular markings at the lung bases and centrally. Additionally, there is evidence for central vascular congestion and ill-defined interstitial and alveolar densities present bilaterally. While this may relate to interstitial edema, the presence of a viral type pneumonitis cannot be completely excluded. There are no confluent alveolar opacities or air bronchograms. There is no evidence for pleural effusion. There is no acute osseous pathology. IMPRESSION: 1. Decreased inspiration with central vascular congestion 2. This also ill-defined interstitial and alveolar densities bilaterally which may represent additional interstitial edema. However, an early viral type pneumonitis cannot be excluded based on this study. 3. Correlation with Covid testing is recommended. ACT 112: Negative or not required by law. Electronically signed by: Eric Jimenez M.D. 02/09/2022 11:13 AM ECG Additional Comments: 02/09/22 at 10:20 AM: Poor data quality, interpretation may be adversely affected Wide QRS tachycardia Left bundle branch block Abnormal ECG When compared with ECG of 18-SEP-2006 10:01, Wide QRS tachycardia has replaced Sinus rhythm Vent. rate has increased BY 64 BPM 02/09/22 at 12:18 PM: Sinus rhythm with 1st degree A-V block Left bundle branch block Abnormal ECG When compared with ECG of 09-FEB-2022 10:35, (unconfirmed) Sinus rhythm has replaced Wide QRS rhythm Code Status & VTE Plan Code Status Full Code. Supervising Physician Co-Signing Physician Notes I personally saw and examined the patient. I verified all morales points and agree with Amina Delcid PA-C with the following exceptions and/or additions: 81 year old male with chest pain and shortness of breath. Exertional substernal chest pain without radiation for the last week. Resting chest pain this morning started at 7am, lasting for hours until he cam eot the ER. When seen in the ER patient was chest pain free after BiPAP placed and Lasix 40mg IV given. EKG with wide complex tachycardia 120 bpm which slowly improved to 90 bpm and more clearly in NSR with LBBB after BiPAP placed. No prior cardiac history. O/E HS1+2, no murmurs, RRR, Respiratory distress with accessory muscle use. Chest bibasal to midzone crackles. Abdo SNT. 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 JESSIE Huynh called for stat TTE. ASA and nitro paste 1 inch ordered. Patient taken emergently for cardiac cath once seen by cardiology. LVEF 30% with large akinetic segment involving anterior wall and apex. 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 Intra-aortic balloon pump was placed. Cardiology discussed patient was discussed with [facility] under care of Dr Boo Acute congestive heart failure with unknown ejection fraction - Lasix 40mg IV given in ER. Continue on BiPAP, FiO2 30%, aim O2 sats > 94%. Acute respiratory distress with hypoxia - BiPAP as above to aim O2 sats > 94%. PG Care Time/CCT Total # of Minutes Spent Total Time Spent with Patient: Total time spent is greater than 50% in coordination of care (as documented) at patient's floor/unit and/or counseling patient: Coding Level of Care Code 25342 Initial Inpt Care Lvl 3 Diagnoses Prediabetes R73.03 Hypertension I10 Hyperlipidemia E78.5 Benign prostatic hyperplasia N40.0 Acute heart failure I50.9 Acute [place] anterior wall first episode care I21.09
[2022-02-09] MEDS ORDERED: ASPIRIN CHEW 324 MG PO STA (12:25)
[2022-02-09] MEDS ORDERED: NITROGLYCERIN 2% OINTMENT 30GM TUBE EXT STA (12:31)
--- NOTE | 2022-02-09 13:03 | Electrocardiogram Report ---
Test Reason : Blood Pressure : / mmHG Vent. Rate : 122 BPM Atrial Rate : 122 BPM P-R Int : 000 ms QRS Dur : 172 ms QT Int : 358 ms P-R-T Axes : 000 -07 136 degrees QTc Int : 510 ms Poor data quality, interpretation may be adversely affected Probable Sinus tachycardia Left bundle branch block Abnormal ECG When compared with ECG of 18-SEP-2006 10:01, Significant changes have occurred Confirmed by Cody Delgado ([id number]) on 02/09/2022 1:03:25 PM Referred By: Confirmed By:Cody Delgado
[2022-02-09] MEDS ORDERED: LIDOCAINE 1% LOCAL 20 ML VIAL ONE ×2 (13:18→13:20)
[2022-02-09 13:25] LABS: Partial Thromboplastin Time 26.3 Seconds (21.0-31.0); Prothrombin Time 10.8 Seconds (9.0-12.0)
[2022-02-09] MEDS ORDERED: fentaNYL citrate 100 MCG/2 ML VIAL ONE (13:29)
[2022-02-09] MEDS ORDERED: NITROGLYCERIN/D5W 100MCG/ML 20ML SYR ONE (13:29)
[2022-02-09] MEDS ORDERED: niCARdipine HCL INJ 2.5 MG/ML 10 ML AMP ONE (13:29)
[2022-02-09] MEDS ORDERED: MIDAZOLAM HCL 1 MG/ML 2ML VIAL ONE (13:29)
[2022-02-09] MEDS ORDERED: HEPARIN (PORCINE) 1000 UNIT/ML 10 ML (CATH LAB USE ONLY) ONE (13:29)
[2022-02-09] MEDS ORDERED: NITROGLYCERIN/D5W 100 MCG/ML BTL ONE (13:33)
--- NOTE | 2022-02-09 13:55 | Pre Anesthesia Assessment ---
Date of Service February 09, 2022 Pre Sedation Assessment Vital Signs Temp Pulse Pulse Resp BP Pulse Ox 02/09/22 13:25 118 H 28 H 146/105 H 96 02/09/22 13:15 110 H 18 163/118 H 93 02/09/22 12:30 96 H 18 147/87 H 100 02/09/22 12:00 88 21 117/75 95 02/09/22 10:32 117 H 40 H 94 02/09/22 10:20 123 H 34 H 152/121 H 91 02/09/22 10:10 97.5 F L 122 H 22 88 L 02/09/22 10:09 90 Cardiovascular RRR, no murmur, no edema Respiratory normal respiratory effort, lungs clear to auscultation Pre-Sedation Airway Assessment Smoking Status: Never smoker Hx Sleep Apnea: No Hx Difficult Intubation: No Short, Thick Neck: No Thyromental Distance: > or= 3.5 Finger Breadths Oral Cavity: + WNL Mallampati Class: III ASA: ASA3 NPO Status Date of Last Intake of Fluids: 02/09/22 Time of Last Intake of Fluids: 08:00 Date of Last Intake of Solid Food: 02/09/22 Time of Last Intake of Solid Foods: 08:00 Procedure Planning Contraindications for Sedation: none Current Medications Reviewed: Yes Notes The planned sedation has been discussed with the patient. Informed Consent was obtained. I have identified the patient, determined the appropriateness of sedation and have assessed the patient immediately prior to the procedure. All medicine(s) and interventions are by my order.
--- NOTE | 2022-02-09 13:58 | Cardiology Consultation ---
Date of Consultation February 09, 2022 Assessment & Plan (1) Acute DC anterior wall first episode care: -echocardiogram notes akinesis of the anteroapical wall. -agree with heparin drip. -proceed directly to the cardiac catheterization laboratory. (2) Acute pulmonary edema: -improving with diuresis and BiPAP mask. -secondary to the acute event. (3) New onset left bundle branch block (LBBB): -new compared with a tracing done in September 2006. History of Present Illness History of Present Illness Mr. Bailey is an 81-year-old male admitted earlier today with chest pain, pulmonary edema, and a new LBBB. This consultation was ordered to assistance cardiac management. The patient was in her usual state of health until approximately 1 week prior to presentation. The patient began to note right-sided exertional chest discomfort which occurred while walking to his mailbox. There were no other associated s ymptoms such as shortness of breath, nausea, vomiting, or diaphoresis. His discomfort was very reproducible and predictable. He awoke this morning with profound shortness of breath and right-sided chest discomfort. At approximately 9:00 a.m., he called his daughter to ask for assistance. She mainly brought him to the emergency room for further evaluation. On arrival here, the patient was in acute pulmonary edema. He was diuresed and placed on a BiPAP mask. Fortunately, as the patient improved clinically, his chest discomfort resolved. He is currently pain-free. The patient has never known of a cardiac event. He has never had a cardiac catheterization or stress test. Currently, patient is resting comfortably in bed without complaints. Past medical and surgical history 1. Hypertension 2. Hypercholesterolemia 3. Hyperglycemia 4. Hearing deficit 5. Vitamin-D deficiency 6. BPH 7. TURP Social history , lives alone No tobacco Two alcoholic drinks per day Family history Noncontributory Review of systems A 10 review systems was negative except that described above. Allergies Allergy/AdvReac Type Severity Reaction Status Date / Time No Known Drug Allergies Allergy Verified 02/09/22 12:34 Home Medications Medication Instructions Recorded Confirmed Type atorvastatin 40 mg tablet 40 mg PO DAILY #90 tab 04/07/21 02/09/22 Rx finasteride 5 mg tablet 5 mg PO DAILY #90 tab 09/27/21 02/09/22 Rx diltiazem HCl 240 mg 240 mg PO DAILY #90 cap 09/28/21 02/09/22 Rx capsule,extended release 24 hr (Cartia XT) tamsulosin 0.4 mg capsule 0.4 mg PO DAILY #90 cap 10/03/21 02/09/22 Rx lisinopril 20 mg tablet 20 mg PO DAILY #90 tab 01/30/22 02/09/22 Rx omega 3,6,9 combination no.7 92 mg 92 mg PO DAILY 02/09/22 02/09/22 History (43 mg-22 [id number]) chew tablet Patient History Medical History (Updated 02/09/22 @ 14:07 by Cody Delgado MD) Benign prostatic hyperplasia Disequilibrium Hearing loss Hypertension Male erectile disorder of organic origin Mitral regurgitation Prediabetes Tinnitus Vitamin D deficiency Surgical History History of transurethral prostatectomy (09/14/12) Family History Father Colorectal cancer Mother Cancer Brother Laryngeal cancer Sister Alzheimer disease Other No family history of adverse response to anesthesia No family history of bleeding disorder Denies family history of Ovarian cancer Prostate cancer Breast cancer Social History Smoking Status: Never smoker Age Started Using Tobacco: 15; Second Hand Exposure: No; Hx Alcohol Use: Yes Alcohol type: beer Alcohol Intake Frequency Comment: About 2 alcoholic beverages per day Hx Substance Use: No Preferred Language: Thai Communication Ability: Effective Visual Impairment: No Limitations Hearing Ability: Use of Hearing Aid marital status: / Current Living Situation: Alone current occupational status: retired Feels Safe at Home: Yes caffeine: Yes Dental Care, Regularly: No Physical Activity Frequency: 1-2 Times per Week Seatbelt Use: always Physical Exam Physical Exam: In general is well-developed well-nourished white male in no acute distress. HEENT exam is negative. Neck is supple with full carotid upstrokes. No obvious bruits. Jugular venous pressure is difficult to assess. Cardiovascular exam reveals a regular rhythm with distant heart sounds. No obvious murmurs. No S3. Lungs note a bibasilar rales. Abdomen is obese without bruits. Extremities reveal intact radial artery pulses bilaterally. There is no peripheral edema. Results & Data ([facility]) Vital Signs (Past 12 Hours) Vital Signs Temp Pulse Pulse Resp BP Pulse Ox 02/09/22 13:25 118 H 28 H 146/105 H 96 02/09/22 13:15 110 H 18 163/118 H 93 02/09/22 12:30 96 H 18 147/87 H 100 02/09/22 12:00 88 21 117/75 95 02/09/22 10:32 117 H 40 H 94 02/09/22 10:20 123 H 34 H 152/121 H 91 02/09/22 10:10 36.4 C L 122 H 22 88 L 02/09/22 10:09 90 Laboratory Results CBC notes hemoglobin 14.2, hematocrit 42.5, white count 14.79, and platelet count of 263,000. Electrolytes note a sodium of 135, potassium 3.8, chloride 102, bicarb 25, BUN 16, creatinine 1.19, glucose of 189. Troponin is 478.1. BNP is elevated 335. Diagnostic Findings EKG on presentation noted sinus tachycardia with a left bundle branch block. This was new compared to a tracing done in September 2006. Follow-up tracing noted sinus rhythm with a complete left bundle-branch block. Echocardiogram notes moderate left ventricular dysfunction with ejection fraction of approximately 30%. The entire apex is akinetic as is the anterior wall. Chest x-ray notes borderline cardiomegaly and diffuse interstitial edema. PG Care Time/CCT Total # of Minutes Spent Total Time Spent with Patient: Total time spent is greater than 50% in coordination of care (as documented) at patient's floor/unit and/or counseling patient: Coding Level of Care Code 49912 Initial Inpt Care Lvl 3 Diagnoses Acute DC anterior wall first episode care I21.09 Acute pulmonary edema J81.0 New onset left bundle branch block (LBBB) I44.7
[2022-02-09] MEDS ORDERED: HEPARIN 25000 UNIT/500 ML D5W IV ONE (14:42)
--- NOTE | 2022-02-09 14:44 | Post Anesthesia Assessment ---
Date of Service February 09, 2022 Post Sedation Assessment Vital Signs Temp Pulse Pulse Resp BP Pulse Ox 02/09/22 13:25 118 H 28 H 146/105 H 96 02/09/22 13:15 110 H 18 163/118 H 93 02/09/22 12:30 96 H 18 147/87 H 100 02/09/22 12:00 88 21 117/75 95 02/09/22 10:32 117 H 40 H 94 02/09/22 10:20 123 H 34 H 152/121 H 91 02/09/22 10:10 97.5 F L 122 H 22 88 L 02/09/22 10:09 90 Recovery Score Activity: Moves 4 extremities Respiration: Deep Breath/Cough Circulation: +/-20% PreAnes Value Consciousness: Fully Awake Oxygen Saturation: O2 needed for >90% Discharge Sedation Level of Care: Higher Level of Care Post Sedation Plan On clinical assessment, the patient appears to have tolerated the sedation without complications. Patient is recovering as anticipated. Patient will continue to be monitored by nursing and may be discharged when sedation discharge criteria are met per below protocol. Upon Completions of procedure up to 15 minutes continue every 5 minute vital signs and the P.A.R. score; then discharge to a Phase I or Fast Track to Phase II per the following guidelines: * Discharge Patient to appropriate Phase II area if PAR is 8 or greater or return to pre- procedure baseline. The post - procedure orders will be as directed. * If PAR score is less than 8 or not return to pre-procedure baseline then patient will follow Phase I monitoring till PAR is reached for Phase II. The Phase I may be done in procedure room or may call to secure a Phase I area. * If naloxone or flumazenil are used for reversal, hold in Phase I for continued monitoring from when last reversal dose was given for a minimum of 60 minutes or longer pending the nurse and/or physician discretion of patient condition before discharge to Phase II. Please call the Sedation Physician to re-evaluate and complete post-note for discharge to Phase II area. Do NOT discharge from procedure sedation or Phase 1 until post- sedation evaluation note is complete by procedure /sedation MD Sedation Discharge Instructions to be given to the patient at discharge to home.
[2022-02-09 14:45] LABS: iSTAT Arterial Blood Gas HCO3 25 meg/L (19-24); iSTAT Arterial Blood Gas pCO2 43 mmHg (35-46); iSTAT Arterial Blood Gas pH 7.38 (7.35-7.45); iSTAT Arterial Blood Gas pO2 63 mmHg (80-95); iSTAT Carbon Dioxide 26 mmol/L (24-31)
--- NOTE | 2022-02-09 14:48 | Cardiac Catheterization ---
[facility] Data: Molded Candles Wicker Cardiac Status Clinical evaluation leading to the procedure CAD Presenation: Non STEMI Anginal Classification: CCS IV Heart Failure: NYHA Class: CCS IV Diagnostic Physicians Name: Albert Rodney MD Closure Device Recommendations: CABG Cardiac Cath Procedure Full Procedure Date February 09, 2022 Pre-Procedure Diagnosis Pre-Procedure Diagnosis: Non STEMI and CHF AUC Score AUC Score: 8 Post-Procedure Diagnosis Post-Procedure Diagnosis: Severe CAD Procedure(s) Performed Procedure(s) Performed: Coronary Angiography, Left Heart Cath, Right Heart Cath, IABP and Ultrasound Guided Vascular Access Clinical Product Manager Albert Rodney MD Cellular Equipment Repairer(s) Alonso Estimated Blood Loss Estimated Blood Loss: 15 Medication(s) Medication(s): Fentanyl, Heparin, Lidocaine 1%, Nicardipine, Nitroglycerin and Versed Summary of Findings Indication: High risk NSTEMI, acute decompensated heart failure Access: 6 Fr right radial artery, 8 Fr right common femoral artery under ultrasound guidance 7 Fr right common femoral vein under ultrasound guidance Catheters: [place], 7 Fr [place] Findings: LM -heavily calcified, diffuse up to 95% disease extending into LAD LAD -heavily calcified proximally, 95% ostial, 90% proximal. Mid to distal vessel without significant disease and extends to apex. Provides partial collaterals to PDA. Medium D2 without disease. Circumflex -calcified, medium caliber, 98% ostial, 80% mid, large OM2 without significant disease. Distal vessel, OM 3, left PLB with BO II-III flow. RCA -dominant, heavily calcified, 100% earlymid chronic total occlusion. Distal vessel fills partially via right to right bridging collaterals. IABP placement: Due to acute heart failure and critical left main, three-vessel disease decision to place balloon pump. Right FERRY BOAT CAPTAIN access under ultrasound guidance 8 Fr sheath placed Balloon pump placed to descending thoracic aorta IABP at 1:1 with MAPs to 70, augmentation to 100 mmHg. Right heart cath performed RA 9 RV 35/9 PA 34/17 (23) PAWP 12 LV 19 PaSat 56% AoSat 91% Rustam CO/CI 4.3/2.2 Arterial Closure: TR Band Summary: 1. Critical left main disease and severe three-vessel coronary artery disease -95% diffuse left main 95% ostial, 90% proximal LAD 98% ostial circumflex, 80% mid circumflex with BO II-III flow in distal circumflex 100% mid RCA chronic total occlusion with right to right and [id number] collaterals 2. Mildly elevated left and right-sided filling pressures 3. Normal pulmonary artery pressures 4. Preserved cardiac output 5. Successful IABP placement Recommendations: Transfer to tertiary center for CABG evaluation Hemodynamics Rest Ao:: 93/68/77 Final Ao: 123/53/69 LV: 94/17 Recommendations Recommendations: CABG Specimens Specimens: None Radiation Exposure (mGy) 1066 Contrast (mls) 20 Anesthesia Moderate 5808-7632 Procedural Complication(s) None Disposition Noam Quintana I attest to the content of the Intraoperative Record and any orders documented therein. Any exceptions are noted below. MedSave USAG Card Cath Procedure Codes Cardiac Catheterization Procedure 1: Cardiovascular Cath Procedures: 81326 Coronaries & LHC (+/-LV) & RHC Therapeutic Services & Ancillary Proc Procedure 1: Cardiovascular Tx and Anc Procedures: 54673 Ultrasonic Guidance Vascular Access Procedure 2: Cardiovascular Tx and Anc Procedures: 95191 Ultrasonic Guidance Vascular Access Procedure 3: Cardiovascular Tx and Anc Procedures: 13719 IABP Insertion Moderate Sedation Procedure 1: Sedation/Anesthesia: 38727 Mod Sedation by the same physician;Init15 Min Child Age 5 & Up Procedure 2: Sedation/Anesthesia: 04480 Mod Sedation by the same physician; Ea [id number] Minutes PG Care Time/CCT Total # of Minutes Spent Total Time Spent with Patient: Total time spent is greater than 50% in coordination of care (as documented) at patient's floor/unit and/or counseling patient:
--- NOTE | 2022-02-09 15:15 | XCELERA ---
[id number]
--- NOTE | 2022-02-09 15:25 | Discharge Summary ---
Date of Service February 09, 2022 Admission HPI Per Admitting Provider Mr. Bailey is an 81-year-old male with past medical history of hypertension, severe hearing loss, BPH, prediabetes who presents today with chest pain and worsening shortness of breath since this morning at home. Patient reports he has had ongoing episodes of chest pain over the past week or so, both at rest and with exertional activity like going to the mailbox. States that it is not lasting more than 15 to 20 minutes and resolving on its own. However today, woke up around 8 AM and had experienced central chest pain without any radiation to shoulder/arm/back/neck/jaw. He called his daughter at 9 AM due to this as well as worsening shortness of breath at rest and wheezing, which is all completely new for him as of this morning, she also reports he was sweating profusely on their way to ED. Chest pain persisted until his arrival to ED. He was in his normal state of health last evening, slept flat in bed without orthopnea, PND. Daughter at bedside notes besides on and off chest pain this week, he had yao in his usual state of health, no noticeable fluid retention or breathing difficulties. Meds this AM include baby aspirin as well as daily meds: diltiazem, lisinopril, atorvastatin, proscar, flomax. Of note, patient was recently DC'd from his HCTZ this week due to dizziness, no other medication changes. In ED, initially presented 88% on room air, HR 122, normotensive. Wide ventricular tachycardia on EKG. troponin 478.1, BNP 335. Otherwise labs significant for WBC 14.79. Sodium borderline low 135, otherwise all electrolytes within normal limits. COVID/flu/RSV negative. Renal function at baseline. CXR with central vascular congestion, ill-defined interstitial and alveolar densities bilaterally. Patient was placed on BIPAP, received 40 mg IV Lasix. Hospitalist service consulted. Repeat EKG ordered showing sinus rhythm with 1st degree A-V block and new left bundle branch block. STAT echo ordered, case discussed with Dr. Rodney. STAT aspirin, nitroglycerin paste ordered. Admission Exam Per Admitting Provider General: awake, alert, no apparent distress, on BIPAP but conversating well Head: Normocephalic, atraumatic ENT: PERRL, EOMI, no pharyngeal exudate, mucous membranes moist Chest: Clear to auscultation, on room air, no adventitious breath sounds Cardiac: Regular rate and rhythm, no murmur, no JVD, normal peripheral pulses, good capillary refill Abdominal: NABS x 4 quadrants, soft, nontender to palpation, no rebound, guarding or tenderness Extremities: Normal inspection, no peripheral edema or erythema, calfs nontender to palpation Psych: Normal mood and affect Neuro: AAO x 3, strength intact bilaterally and rated 5/5, no motor deficits, speech is clear, no peripheral sensory deficits Skin: no rash or erythema Principal Diagnosis Acute AK Discharge Exam General: awake, alert, no apparent distress, on BIPAP but conversating well Head: Normocephalic, atraumatic ENT: PERRL, EOMI, no pharyngeal exudate, mucous membranes moist Chest: Clear to auscultation, on room air, no adventitious breath sounds Cardiac: Regular rate and rhythm, no murmur, no JVD, normal peripheral pulses, good capillary refill Abdominal: NABS x 4 quadrants, soft, nontender to palpation, no rebound, gu arding or tenderness Extremities: Normal inspection, no peripheral edema or erythema, calfs nontender to palpation Psych: Normal mood and affect Neuro: AAO x 3, strength intact bilaterally and rated 5/5, no motor deficits, speech is clear, no peripheral sensory deficits Skin: no rash or erythema Discharge Data Allergies Allergy/AdvReac Type Severity Reaction Status Date / Time No Known Drug Allergies Allergy Verified 02/09/22 12:34 Consultations 02/09/22 12:10 ED Decision to Admit Stat 02/09/22 12:43 Consult Cardiology Stat Procedures Performed Operation Date: 02/09/22 13:30 <No data on this case meets the specified criteria> Ordered Studies 02/09/22 13:09 CL Cath Imgs for PACS use only Stat Hospital Course (1) Acute AK anterior wall first episode care: (2) Acute heart failure: (3) Prediabetes: (4) Hypertension: (5) Hyperlipidemia: (6) Benign prostatic hyperplasia: Mr. Bailey was evaluated here at [facility] on 02/09/22 for chest pain, diaphoresis, and SOB that had been ongoing since 8 AM this morning. By the time he reached the ED, his chest pain had resolved but he was tachycardic with HR in 120s, SpO2 88% on room air, hypertensive with SBP 150s, afebrile. Initially placed on 2L NC. CXR revealed central vascular congestion and ill-defined interstitial and alveolar densities bilaterally. Initial EKG showed a wide complex tachycardia with rates 120 bpm, subsequent EKGs and telemetry revealed this to be a sinus tachycardia with left bundle branch block and not suspected to be ventricular tachycardia. He was placed on BiPAP and received 40 mg IV Lasix to which he responded favorably to. His initial high-sensitivity troponin was 478. A STAT echo was ordered which showed akinesis of anteroapical wall with LVEF 30%. Repeat EKG later showed sinus rhythm with 1st degree A-V block, again with left bundle branch block, which was found to be new when compared to last EKG in our system from September 2006. Given these findings, patient was given full dose aspirin, Nitropaste, and case was urgently discussed with Dr. Rodney with cardiology. Dr. Rodney brought the patient to [facility] for emergent catheterization. Summary of findings: 1.) Critical left main disease and severe three-vessel coronary artery disease - 95% diffuse left main 95% ostial, 90% proximal LAD 98% ostial circumflex, 80% mid circumflex with BO II-III flow in distal circumflex 100% mid RCA chronic total occlusion with right to right and [id number] collaterals 2.) Mildly elevated left and right-sided filling pressures 3.) Normal pulmonary artery pressures 4.) Preserved cardiac output 5.) Successful IABP placement Given the extent of the disease, Dr. Rodney recommended patient be transferred to tertiary center for CABG evaluation, as they are not performed here at [facility]. He was accepted under the care of of Dr. Boo, coal briquette machine operator at [facility] in [place], [place]. Transportation to facility this afternoon arranged by [facility]. Please note medication list was not changed and reflects his home medications prior to arrival in the ER. Total Time Total Time Spent Total Time Spent (In Minutes): 90 Discharge Plan Discharge Items Patient Disposition: Transfer Acute Care Hospital Reason For Visit: HARD TO BREATHE, CHEST PAIN, A LOT OF PHLEM Discharge Diagnosis: acute anterior wall AK Condition on Discharge: Serious Goals: 81 y/o male presented this AM with acute onset of chest pain, diaphoresis, and SOB. In ED, was found to be in acute heart failure and placed on BIPAP with 40 mg IV LAsix 1, EKG with wide QRS complexes with rate 120 bpm. Rate improved with BiPAP and Lasix however he remained with new onset LBBB. Initial HS trop 478. Case was discussed with Dr. Rodney, patient was emergently brought to [facility] and based on findings, the decision was made to transfer patient to outside facility for intervention. He was accepted under Dr. Boo at [facility] [place]. Activity: Per Instructions section Non-emergency contact: Primary Care Provider Call non-emergency contact if: you have any medication questions, your symptoms worsen and your pain is not controlled Follow-Up/Referrals: Albert Sharma MD [Primary Care Provider] - Diet: Resume previous diet Pending Studies at Discharge: No Stand-Alone Forms: My [facility] [place] [employer] Prescriptions: Continued atorvastatin 40 mg tablet 40 mg PO DAILY Qty: 90 RF: 3 finasteride 5 mg tablet 5 mg PO DAILY Qty: 90 RF: 1 diltiazem HCl [Cartia XT] 240 mg capsule,extended release 24hr 240 mg PO DAILY Qty: 90 RF: 3 tamsulosin 0.4 mg capsule 0.4 mg PO DAILY Qty: 90 RF: 3 lisinopril 20 mg tablet 20 mg PO DAILY Qty: 90 RF: 3 omega 3,6,9 combination no.7 92 mg (43 mg-22 [id number]) Tablet,Chewable 92 mg PO DAILY RF: 0 Admission Data Attending Provider: Solomon Rodney Primary Care Provider: Albert Sharma Other Providers: Lew Pimentel ; Solomon Rodney Coding Level of Care Code None Diagnoses Acute AK anterior wall first episode care I21.09 Acute heart failure I50.9 Prediabetes R73.03 Hypertension I10 Hyperlipidemia E78.5 Benign prostatic hyperplasia N40.0
--- NOTE | 2022-02-09 16:03 | Electrocardiogram Report ---
Test Reason : Blood Pressure : / mmHG Vent. Rate : 089 BPM Atrial Rate : 089 BPM P-R Int : 264 ms QRS Dur : 158 ms QT Int : 410 ms P-R-T Axes : 000 -18 136 degrees QTc Int : 498 ms Probable Sinus rhythm with 1st degree A-V block Left bundle branch block Abnormal ECG When compared with ECG of 09-FEB-2022 10:35, Premature ventricular complexes are no longer Present FL interval has increased Confirmed by Cody Delgado ([id number]) on 02/09/2022 4:02:30 PM Referred By: REFERRED SELF Confirmed By:Cody Delgado
[2022-02-13 07:06] LABS: iSTAT Arterial Blood Gas HCO3 27 meg/L (19-24); iSTAT Arterial Blood Gas pCO2 49 mmHg (35-46); iSTAT Arterial Blood Gas pH 7.35 (7.35-7.45); iSTAT Arterial Blood Gas pO2 < 32 mmHg (80-95); iSTAT Carbon Dioxide 28 mmol/L (24-31)
== END 2022-02-09 17:00 | disposition short-term general hospital (02) | DRG 270 ==
LOC: ED 10:08 → CC 13:20 → EDINP 13:26

== ENCOUNTER 2022-03-30 07:40 | Observation (INO) ==
[2022-03-30] MEDS ORDERED: SODIUM CHLORIDE 0.9% 1000ML 250 ML IV ONE (08:01)
--- NOTE | 2022-03-30 08:01 | Emergency Department Note ---
Past Med/Surg History Medical History (Updated 02/10/22 @ 16:59 by Violeta Blackwood DO) Benign prostatic hyperplasia Disequilibrium Hearing loss Hypertension Male erectile disorder of organic origin Mitral regurgitation Prediabetes Tinnitus Vitamin D deficiency Surgical History History of transurethral prostatectomy (09/14/12) Family History Father Colorectal cancer Mother Cancer Brother Laryngeal cancer Sister Alzheimer disease Other No family history of adverse response to anesthesia No family history of bleeding disorder Denies family history of Ovarian cancer Prostate cancer Breast cancer Social History Smoking Status: Never smoker Age Started Using Tobacco: 15; Second Hand Exposure: No; Hx Alcohol Use: Yes Alcohol type: beer Alcohol Intake Frequency Comment: About 2 alcoholic beverages per day Hx Substance Use: No Preferred Language: Luxembourgish Communication Ability: Effective Visual Impairment: No Limitations Hearing Ability: Use of Hearing Aid marital status: / Current Living Situation: Alone current occupational status: retired Feels Safe at Home: Yes caffeine: Yes Dental Care, Regularly: No Physical Activity Frequency: 1-2 Times per Week Seatbelt Use: always Allergies Allergies Allergy/AdvReac Type Severity Reaction Status Date / Time No Known Drug Allergies Allergy Verified 03/02/22 11:38 Home Meds Home Medications Medication Instructions Recorded Confirmed omega 3,6,9 combination no.7 92 mg 92 mg PO DAILY 02/09/22 03/02/22 (43 mg-22 [id number]) chew tablet amiodarone 200 mg tablet 200 mg PO DAILY 02/21/22 03/02/22 clopidogrel 75 mg tablet 75 mg PO DAILY 02/21/22 03/02/22 famotidine 40 mg tablet 40 mg PO DAILY 02/21/22 03/02/22 furosemide 80 mg tablet (Lasix) 80 mg PO BID 02/21/22 03/02/22 hydralazine 10 mg tablet 10 mg PO TID 02/21/22 03/02/22 isosorbide dinitrate 5 mg tablet 5 mg PO TID 02/21/22 03/02/22 metoprolol succinate 25 mg 12.5 mg PO DAILY 02/21/22 03/02/22 tablet,extended release 24 hr potassium chloride 10 mEq 20 meq PO BID 02/21/22 03/02/22 tablet,extended release warfarin 1 mg tablet 1 mg PO DAILY 02/21/22 03/02/22 Previous Rx's Medication Instructions Recorded atorvastatin 40 mg tablet 40 mg PO DAILY #90 tabs 04/07/21 finasteride 5 mg tablet 5 mg PO DAILY #90 tabs 09/27/21 tamsulosin 0.4 mg capsule 0.4 mg PO DAILY #90 caps 10/03/21 Discharge Plan Visit Data Chief Complaint: Chest Pain Stated Complaint: CHEST PAIN ED Provider: Sandra Moreno Forms Stand Alone Forms: My [facility] Prescriptions Prescriptions: No Action atorvastatin 40 mg tablet 40 mg PO DAILY Qty: 90 3RF finasteride 5 mg tablet 5 mg PO DAILY Qty: 90 1RF tamsulosin 0.4 mg capsule 0.4 mg PO DAILY Qty: 90 3RF amiodarone 200 mg tablet 200 mg PO DAILY clopidogrel 75 mg tablet 75 mg PO DAILY famotidine 40 mg tablet 40 mg PO DAILY furosemide [Lasix] 80 mg tablet 80 mg PO BID hydralazine 10 mg tablet 10 mg PO TID isosorbide dinitrate 5 mg tablet 5 mg PO TID Rx Instructions: allow nitrate-free interval of 12-14 hrs per 24-hr period metoprolol succinate 25 mg tablet extended release 24 hr 12.5 mg PO DAILY potassium chloride 10 mEq tablet extended release 20 meq PO BID warfarin 1 mg tablet 1 mg PO DAILY omega 3,6,9 combination no.7 92 mg (43 mg-22 [id number]) Tablet,Chewable 92 mg PO DAILY Referrals Referrals: Albert Sharma MD [Primary Care Provider] -
[2022-03-30] MEDS ORDERED: ACETAMINOPHEN 500 MG TAB PO STA (08:03)
[2022-03-30 08:09] LABS: Basophils # (auto) 0.04 K/uL (0-0.2); Basophils % (auto) 0.3 %; Eosinophils # (auto) 0.11 K/uL (0-0.50); Eosinophils % (auto) 0.9 %; Hematocrit (blood only) 38.2 % (40.1-51.0); Hemoglobin 12.5 g/dl (14.0-18.0); Immature Granulocytes # (auto) 0.07 K/uL (0.00-0.02); Immature Granulocytes % (auto) 0.6 %; Lymphocytes # (auto) 2.14 K/uL (1.2-3.4); Mean Corpuscular Hgb Conc 32.7 g/dL (32.0-36.0); Mean Corpuscular Volume 91.6 fL (80.0-100.0); Mean Platelet Volume 9.4 fL (9.4-12.4); Monocytes # (auto) 1.32 K/uL (0.24-0.82); Monocytes % (auto) 11.1 %; Neutrophils # (auto) 8.19 K/uL (1.4-6.5); Neutrophils % (auto) 69.1 %; Platelet Count 235 K/uL (130-400); RDW Coefficient of Variation 14.3 % (11.5-14.5); RDW Standard Deviation 47.7 fL (36.4-46.3); Red Blood Count 4.17 M/uL (4.63-6.08); White Blood Count 11.87 K/ul (4.8-10.8)
--- NOTE | 2022-03-30 08:18 | XRay Report ---
XR chest 1V portable CLINICAL HISTORY: Chest Pain TECHNIQUE: Single frontal radiograph of the chest was obtained. Comparison: Comparison is made to chest radiograph 02/09/2022 FINDINGS: Median sternotomy wires are unchanged. Calcified aortic knob is seen. Lungs are underinflated but serene ar. No evidence of pleural effusion or pneumothorax. IMPRESSION: No acute chest disease. ACT 112: Negative or not required by law. Electronically signed by: Matt Monge M.D. 03/30/2022 8:16 AM
[2022-03-30 08:30] LABS: Alanine Aminotransferase 104 U/L (7-52); Albumin Globulin Ratio 1.2 (0.9-2); Albumin Level 3.4 gm/dl (3.4-5.0); Alkaline Phosphatase 87 U/L (34-104); Anion Gap 8 (3-11); Aspartate Aminotransferase 69 U/L (13-39); BUN Creatinine Ratio 18.9 (10-20); Bilirubin,Total 0.7 mg/dl (0.2-1.0); Blood Urea Nitrogen 24 mg/dl (6-23); Calcium 8.3 mg/dl (8.5-10.1); Carbon Dioxide 28 mmol/L (21-32); Chloride 103 mmol/L (98-107); Est GFR (Non-African American) 52.6 ml/min; Globulin 2.8 gm/dl (2.5-4.0); Glucose 96 mg/dl (70-99(Fasting)); Lipase 49 U/L (11-82); Potassium 3.5 mmol/L (3.5-5.1); Sodium 139 mmol/L (136-145); Total Protein 6.2 gm/dl (6.0-8.3)
[2022-03-30 08:56] LABS: Troponin I High Sensitivity 65.7 pg/ml (0-20)
[2022-03-30 09:35] LABS: INR 5.2 (0.9-1.1); Partial Thromboplastin Ratio 1.6; Partial Thromboplastin Time 42.7 Seconds (21.0-31.0); Prothrombin Time 50.5 Seconds (9.0-12.0)
--- NOTE | 2022-03-30 10:18 | History & Physical Report ---
Date of Service March 30, 2022 Assessment & Plan (1) Elevated troponin: Plan: Associated chest pain at rest elevated troponin with recent revascularization, will check repeat and gauge from there, echo Plavix, lasix, atorvastatin, isosorbide, metoprolol,hydralazine Cannot interpret EKG has baseline left bundle branch block is present (2) Paroxysmal atrial fibrillation: Plan: amiodarone, metoprolol, and coumadin for emboic prevention, suprotherapeutic INR, will trend, since >5 will have very low dose vitamin K, will explore why not on DOAC (3) Hyperlipidemia: Plan: atorvastatin (4) Prediabetes: Plan: last a1c is 5.9, will have on a carbohydrate restricted diet (5) Benign prostatic hyperplasia: Plan: consider tamsulosin Plan dvt prvention is coumadin, he is supratherapeutic, giving 2.5 mg po vitamin K History of Present Illness Primary Care Provider: Albert Sharma MD Pt has a history of a recent CABG and presents with chest pain and mild elevation of Hstrop, his cp has some reproducible quality and ECG has LBBB which is not new. Pt says chest pain was at rest but associated congested cough, did not radiate and no associated sx, has not had this pain since his CABG, no other changes in health except laxative associated diarrhea which resolved with stopping laxatives. Daughter at bedside and updated Allergies Allergy/AdvReac Type Severity Reaction Status Date / Time No Known Drug Allergies Allergy Verified 03/02/22 11:38 Home Medications Medication Instructions Recorded Confirmed Type atorvastatin 40 mg tablet 40 mg PO DAILY #90 tabs 04/07/21 03/02/22 Rx finasteride 5 mg tablet 5 mg PO DAILY #90 tabs 09/27/21 03/02/22 Rx tamsulosin 0.4 mg capsule 0.4 mg PO DAILY #90 caps 10/03/21 03/02/22 Rx omega 3,6,9 combination no.7 92 mg 92 mg PO DAILY 02/09/22 03/02/22 History (43 mg-22 [id number]) chew tablet amiodarone 200 mg tablet 200 mg PO DAILY 02/21/22 03/02/22 History clopidogrel 75 mg tablet 75 mg PO DAILY 02/21/22 03/02/22 History famotidine 40 mg tablet 40 mg PO DAILY 02/21/22 03/02/22 History furosemide 80 mg tablet (Lasix) 80 mg PO BID 02/21/22 03/02/22 History hydralazine 10 mg tablet 10 mg PO TID 02/21/22 03/02/22 History isosorbide dinitrate 5 mg tablet 5 mg PO TID 02/21/22 03/02/22 History metoprolol succinate 25 mg 12.5 mg PO DAILY 02/21/22 03/02/22 History tablet,extended release 24 hr potassium chloride 10 mEq 20 meq PO BID 02/21/22 03/02/22 History tablet,extended release warfarin 1 mg tablet 1 mg PO DAILY 02/21/22 03/02/22 History Past Med/Surg History Medical History Benign prostatic hyperplasia Disequilibrium Hearing loss Hypertension Male erectile disorder of organic origin Mitral regurgitation Prediabetes Tinnitus Vitamin D deficiency Surgical History History of transurethral prostatectomy (09/14/12) Family History Father Colorectal cancer Mother Cancer Brother Laryngeal cancer Sister Alzheimer disease Other No family history of adverse response to anesthesia No family history of bleeding disorder Denies family history of Ovarian cancer Prostate cancer Breast cancer Social History Smoking Status: Never smoker Age Started Using Tobacco: 15; Second Hand Exposure: No; Hx Alcohol Use: Yes Alcohol type: beer Alcohol Intake Frequency Comment: About 2 alcoholic beverages per day Hx Substance Use: No Preferred Language: Polish Communication Ability: Effective Visual Impairment: No Limitations Hearing Ability: Use of Hearing Aid Back Line Cook Required: No Beliefs That Will Affect Care: None marital status: / Current Living Situation: Alone current occupational status: retired Other Information That Helps Us Care for You: No Feels Safe at Home: Yes Safety Concerns: Feels Safe At This Time caffeine: Yes Dental Care, Regularly: No Physical Activity Frequency: 1-2 Times per Week Seatbelt Use: always Assistive Devices: Cane, Denture - Upper and Hearing Aid - Bilateral Review of Systems Review of Systems: Currently his distress is relieved no headache, no visual changes no speech or swallowing issues Patient complains of upper chest pressure like someone sitting on his chest associated with coughing at rest no other associated symptoms no shortness of breath,no wheezes no abdominal pain, nausea or vomiting, diarrhea or constipation no dysuria, hematuria or frequency no focal joint pain or swelling no back pain, CVA tenderness or radicular pain no bruising, bleeding or rashes no focal signs of weakness or numbness or altered sensation no complaints of anxiety or depression.. Physical Exam Physical Exam: The patient appeared well nourished and normally developed He appears his stated age and is recovering from recent CABG. Vital signs as documented. Head exam is normocephalic atraumatic Neck is without JVD, thyromegaly, or carotid bruits. Lungs are clear to auscultation, no focal loss of breath sounds Cardiac exam, Rhythm is regular.. No murmurs, rubs or gallops. May be some slight reproducibility of discomfort Abdominal exam reveals normal bowel sounds, soft non tender, no masses Extremities are nonedematous and both pedal pulses are present Neurologic exam is alert and oriented, no focal loss of strength or sensation Skin is without bruises or rashes Psychologically is without concerns for anxiety or depression.. Results & Data Results & Data ([facility]) Vital Signs (Past 12 Hours) Vital Signs Temp Pulse Pulse Resp BP BP Pulse Ox 03/30/22 08:34 85 22 111/62 96 03/30/22 08:14 99.0 F 91 H 26 H 88/65 L 96 03/30/22 08:07 95 03/30/22 08:07 95 03/30/22 08:04 96 H 18 95 O2 Del Method 03/30/22 08:34 Room Air 03/30/22 08:14 Room Air 03/30/22 08:07 Room Air 03/30/22 08:07 Room Air 03/30/22 08:04 Room Air Diagnostic Findings Chest X-Ray 03/30/22 07:49 XR chest 1V portable CLINICAL HISTORY: Chest Pain TECHNIQUE: Single frontal radiograph of the chest was obtained. Comparison: Comparison is made to chest radiograph 02/09/2022 FINDINGS: Median sternotomy wires are unchanged. Calcified aortic knob is seen. Lungs are underinflated but clear. No evidence of pleural effusion or pneumothorax. IMPRESSION: No acute chest disease. ACT 112: Negative or not required by law. Electronically signed by: Matt Monge M.D. 03/30/2022 8:16 AM ECG Additional Comments: EKG shows sinus rhythm left bundle branch block similar to old PG Care Time/CCT Total # of Minutes Spent Total Time Spent with Patient: Total time spent is greater than 50% in coordination of care (as documented) at patient's floor/unit and/or counseling patient: Coding Level of Care Code 75681 Initial Inpt Care Lvl 2 Diagnoses Elevated troponin R77.8 Paroxysmal atrial fibrillation I48.0 Hyperlipidemia E78.5 Prediabetes R73.03 Benign prostatic hyperplasia N40.0
[2022-03-30] MEDS ORDERED: MoRPHine SULFATE 2 MG/ML CARP IV PRN (12:52)
[2022-03-30] MEDS ORDERED: PHYTONADIONE 5 MG TAB PO STA (12:52)
[2022-03-30] MEDS ORDERED: ONDANSETRON INJ 2 MG/ML 2 ML VIAL IV PRN (12:52)
[2022-03-30] MEDS ORDERED: ALUMINUM/MAGNESIUM SUSP 30 ML UDC PO PRN (12:52)
[2022-03-30] MEDS ORDERED: NITROGLYCERIN SL 0.4 MG/TAB TAB SL PRN (12:52)
[2022-03-30] MEDS ORDERED: ACETAMINOPHEN 325 MG TAB PO PRN (12:52)
[2022-03-30] MEDS ORDERED: PNEUMOCOCCAL POLYSACCHARIDES 25 MCG/0.5 ML VIAL/SYR IM ONE (13:08)
[2022-03-30] MEDS: hydrALAZINE 10 MG TAB PO SCH ×2 (13:24→20:35)
--- NOTE | 2022-03-30 16:42 | Cardiology Consultation ---
Date of Consultation March 30, 2022 Assessment & Plan (1) Paroxysmal atrial fibrillation: (2) Elevated troponin: (3) Coronary artery disease: (4) Chest pain: Plan 1. Chest pain: His symptoms seem atypical. It seems to occur once he got back in bed. In January of involves some breathing difficulty. Certainly possibly related to his upper airway congestion that he has been struggling with recently. He seemed to have had a fairly prolonged episode leading up to his evaluation in the emergency room. However, his biomarkers have not risen since admission. I think the likelihood that this was an ischemic event is low. The symptoms seem distinct from his initial presentation. He can be monitored overnight. We could obtain a limited echocardiogram in the morning to make sure there is no pericardial effusion. 2. Elevated troponin: Not significantly elevated. Possibly related to his known coronary disease and LV dysfunction. No rise in the troponin. Think this makes an acute coronary syndrome or any complication related to his recent surgery low. 3. Atrial fibrillation: He had some postoperative atrial fibrillation. No known recurrence. Amiodarone can be stopped. Continuing warfarin for another 2 months is generally recommended, although the guidelines are not clear in this respect. Also, a switch to a novel oral anticoagulant such as Xarelto or apixaban is not supported by the literature but certainly could be considered if he has difficulty maintaining in normal INR. History of Present Illness Reason for Consultation: Chest pain Requesting Physician: Radha Attending Physician: Adis Garcia MD History of Present Illness The patient is an 81-year-old gentleman with a history of coronary disease who initially presented to the hospital in January of 2022. It seems that leading up to that admission the patient had some symptoms of exertional chest pain. He was admitted on February 09 symptoms of chest discomfort and breathing difficulty. He was discovered to have pulmonary edema and elevated biomarkers. He had a left bundle branch block on his EKG. On the same day he was brought to the catheterization suite where he was discovered to have severe coronary artery disease. Based on his acute heart failure, ischemia and severe coronary disease he was transferred urgently to [facility] in [place] where he underwent surgical revascularization. His postoperative course was complicated only by transient atrial fibrillation. This resolved spontaneously. He is discharged from the hospital appears to have had an uneventful recovery. He is cared for by his family members at home. The monitor his medications and we closely. It seems that he has an element of unsteadiness and what he calls disequilibrium. This limits his ambulation. He does not report exertional chest pain or limiting dyspnea. The patient has suffered from upper airway congestion and this morning awoke around 3:00 a.m. with congestion. He went to the bathroom to try and relieve himself. He has some forceful coughing and when he returned to bed he had some pressure sensation in the upper chest. The patient could not describe how long this lasted. He went back to sleep and later that morning had some additional symptoms. His daughter noticed him breathing more prominently. EMS was contacted and was brought to the hospital for evaluation. Patient states that his current symptoms of chest discomfort are different than those he presented with in January of 2022. However, he has some difficulty recalling those events. It should be noted that the patient was quite comfortable during our interview in in fact spent most of his time completing a word find puzzle rather than answering my questions. Allergies Allergy/AdvReac Type Severity Reaction Status Date / Time No Known Drug Allergies Allergy Verified 03/02/22 11:38 Home Medications Medication Instructions Recorded Confirmed Type atorvastatin 40 mg tablet 40 mg PO DAILY #90 tabs 04/07/21 03/02/22 Rx finasteride 5 mg tablet 5 mg PO DAILY #90 tabs 09/27/21 03/02/22 Rx tamsulosin 0.4 mg capsule 0.4 mg PO DAILY #90 caps 10/03/21 03/02/22 Rx omega 3,6,9 combination no.7 92 mg 92 mg PO DAILY 02/09/22 03/02/22 History (43 mg-22 [id number]) chew tablet amiodarone 200 mg tablet 200 mg PO DAILY 02/21/22 03/02/22 History clopidogrel 75 mg tablet 75 mg PO DAILY 02/21/22 03/02/22 History famotidine 40 mg tablet 40 mg PO DAILY 02/21/22 03/02/22 History furosemide 80 mg tablet (Lasix) 80 mg PO BID 02/21/22 03/02/22 History hydralazine 10 mg tablet 10 mg PO TID 02/21/22 03/02/22 History isosorbide dinitrate 5 mg tablet 5 mg PO TID 02/21/22 03/02/22 History metoprolol succinate 25 mg 12.5 mg PO DAILY 02/21/22 03/02/22 History tablet,extended release 24 hr potassium chloride 10 mEq 20 meq PO BID 02/21/22 03/02/22 History tablet,extended release warfarin 1 mg tablet 1 mg PO DAILY 02/21/22 03/02/22 History Patient History Medical History (Updated 03/30/22 @ 16:43 by Albert Fairchild MD) Benign prostatic hyperplasia Disequilibrium Hearing loss Hypertension Male erectile disorder of organic origin Mitral regurgitation Prediabetes Tinnitus Vitamin D deficiency Surgical History History of transurethral prostatectomy (09/14/12) Family History Father Colorectal cancer Mother Cancer Brother Laryngeal cancer Sister Alzheimer disease Other No family history of adverse response to anesthesia No family history of bleeding disorder Denies family history of Ovarian cancer Prostate cancer Breast cancer Social History Smoking Status: Never smoker Age Started Using Tobacco: 15; Second Hand Exposure: No; Hx Alcohol Use: Yes Alcohol type: beer Alcohol Intake Frequency Comment: About 2 alcoholic beverages per day Hx Substance Use: No Preferred Language: Bulgarian Communication Ability: Effective Visual Impairment: No Limitations Hearing Ability: Use of Hearing Aid Lean Leader Required: No Beliefs That Will Affect Care: None marital status: / Current Living Situation: Alone current occupational status: retired Other Information That Helps Us Care for You: No Feels Safe at Home: Yes Safety Concerns: Feels Safe At This Time caffeine: Yes Dental Care, Regularly: No Physical Activity Frequency: 1-2 Times per Week Seatbelt Use: always Assistive Devices: Cane, Denture - Upper and Hearing Aid - Bilateral Review of Systems Review of Systems: Per HPI. No sense of palpitations recently. Physical Exam Physical Exam: The patient is alert and oriented. Mood and affect appeared normal. He answered all questions appropriately. HEENT: Pupils are equal and reactive to light and accommodation. Extraocular movements are intact. The sclerae are anicteric. Neuro: Cranial nerves intact Chest: Well-healed sternotomy scar Lungs: Clear to auscultation bilaterally. He has good air movement without use of accessory muscles. No rales wheezes or rhonchi. Cardiac: Heart demonstrates a regular rate and rhythm. Normal S1 and S2. No murmurs on examination. Pulses: The patient has palpable radial pulses bilaterally that are equal in intensity Extremities: There was no evidence of hypoperfusion. There is no cyanosis or clubbing. There is no edema. Skin: I did not appreciate any rashes on examination today. Results & Data ([facility]) Vital Signs (Past 12 Hours) Vital Signs Temp Pulse Pulse Resp BP BP BP 03/30/22 15:53 36.6 C 84 22 127/66 03/30/22 12:52 03/30/22 12:53 36.4 C L 68 20 116/66 03/30/22 12:00 75 18 98/61 L 03/30/22 10:00 70 18 101/51 L 03/30/22 08:34 85 22 111/62 03/30/22 08:14 37.2 C 91 H 26 H 88/65 L 03/30/22 08:07 03/30/22 08:07 03/30/22 08:04 96 H 18 Pulse Ox O2 Del Method 03/30/22 15:53 97 Room Air 03/30/22 12:52 Room Air 03/30/22 12:53 97 Room Air 03/30/22 12:00 98 Room Air 03/30/22 10:00 96 Room Air 03/30/22 08:34 96 Room Air 03/30/22 08:14 96 Room Air 03/30/22 08:07 95 Room Air 03/30/22 08:07 95 Room Air 03/30/22 08:04 95 Room Air Laboratory Results Abnormal Lab Results 03/30/22 03/30/22 03/30/22 07:55 07:55 07:55 WBC 11.87 H RBC 4.17 L Hgb 12.5 L Hct 38.2 L MCV 91.6 MCH 30.0 MCHC 32.7 RDW Std Deviation 47.7 H RDW Coeff of Asiya 14.3 Plt Count 235 MPV 9.4 Immature Gran % (Auto) 0.6 Neut % (Auto) 69.1 Lymph % (Auto) 18.0 Hamblen % (Auto) 11.1 Eos % (Auto) 0.9 Baso % (Auto) 0.3 Neut # (Auto) 8.19 H Lymph # (Auto) 2.14 Hamblen # (Auto) 1.32 H Eos # (Auto) 0.11 Baso # (Auto) 0.04 Immature Gran # (Auto) 0.07 H PT INR APTT PTT Ratio Sodium 139 Potassium 3.5 Chloride 103 Carbon Dioxide 28 Anion Gap 8 BUN 24 H Creatinine 1.27 Est Cr Clr Drug Dosing Not Reportable Est GFR ( Amer) 61.0 Est GFR (Non-Af Amer) 52.6 BUN/Creatinine Ratio 18.9 Glucose 96 POC Glucose Calcium 8.3 L Total Bilirubin 0.7 AST 69 H ALT 104 H Alkaline Phosphatase 87 Troponin I High Sens 65.7 H* D Total Protein 6.2 Albumin 3.4 Globulin 2.8 Albumin/Globulin Ratio 1.2 Lipase 49 SARS-CoV-2, RNA, NAAT NEGATIVE 03/30/22 03/30/22 03/30/22 07:55 13:03 16:17 WBC RBC Hgb Hct MCV MCH MCHC RDW Std Deviation RDW Coeff of Asiya Plt Count MPV Immature Gran % (Auto) Neut % (Auto) Lymph % (Auto) Hamblen % (Auto) Eos % (Auto) Baso % (Auto) Neut # (Auto) Lymph # (Auto) Hamblen # (Auto) Eos # (Auto) Baso # (Auto) Immature Gran # (Auto) PT 50.5 H INR 5.2 H APTT 42.7 H PTT Ratio 1.6 Sodium Potassium Chloride Carbon Dioxide Anion Gap BUN Creatinine Est Cr Clr Drug Dosing Est GFR ( Amer) Est GFR (Non-Af Amer) BUN/Creatinine Ratio Glucose POC Glucose 109 H Calcium Total Bilirubin AST ALT Alkaline Phosphatase Troponin I High Sens 56.0 H* Total Protein Albumin Globulin Albumin/Globulin Ratio Lipase SARS-CoV-2, RNA, NAAT Diagnostic Findings Echocardiogram performed 02/09/2022: Moderately reduced LV systolic function with ejection fraction of 30%. Mild to moderate mitral regurgitation. Cardiac catheterization performed 02/09/2022: 95% left main, 90 for in% ostial LAD with a 90% proximal stenosis. 90% ostial circumflex. The chronic total occlusion of the right coronary artery. Coronary bypass surgery on 02/10/2022: Peck to LAD, saphenous vein graft to OM and PDA. Chest x-ray obtained today did not reveal any acute cardiopulmonary disease. PG Care Time/CCT Total # of Minutes Spent Total Time Spent with Patient: Total time spent is greater than 50% in coordination of care (as documented) at patient's floor/unit and/or counseling patient: Coding Level of Care Code 59431 Initial Inpt Care Lvl 3 Diagnoses Paroxysmal atrial fibrillation I48.0 Elevated troponin R77.8 Coronary artery disease I25.10 Chest pain R07.9
[2022-03-30] MEDS: FUROSEMIDE 80 MG TAB PO SCH (16:44)
[2022-03-30] MEDS: ISOSORBIDE DINITRATE 5 MG TAB PO SCH (16:44)
--- NOTE | 2022-03-30 18:06 | Electrocardiogram Report ---
Test Reason : Blood Pressure : / mmHG Vent. Rate : 098 BPM Atrial Rate : 098 BPM P-R Int : 218 ms QRS Dur : 144 ms QT Int : 404 ms P-R-T Axes : 092 -38 136 degrees QTc Int : 515 ms Sinus rhythm with 1st degree A-V block with occasional Premature ventricular complexes and Premature atrial complexes Left axis deviation Left bundle branch block Abnormal ECG When compared with ECG of 09-FEB-2022 12:18, Premature ventricular complexes are now Present Premature atrial complexes are now Present Confirmed by Albert Fairchild ([id number]) on 03/30/2022 6:06:19 PM Referred By: REFERRED SELF Confirmed By:Diallo Fairchild
[2022-03-30] MEDS: POTASSIUM CHLORIDE CRTAB 20 MEQ TABCR PO SCH (20:35)
[2022-03-31] MEDS: ISOSORBIDE DINITRATE 5 MG TAB PO SCH ×3 (08:05→17:04)
[2022-03-31] MEDS: hydrALAZINE 10 MG TAB PO SCH ×3 (08:05→15:43)
[2022-03-31] MEDS: FUROSEMIDE 80 MG TAB PO SCH ×2 (08:06→17:03)
[2022-03-31] MEDS: POTASSIUM CHLORIDE CRTAB 20 MEQ TABCR PO SCH (08:06)
[2022-03-31 08:13] LABS: Hematocrit (blood only) 41.3 % (40.1-51.0); Hemoglobin 13.7 g/dl (14.0-18.0); Mean Corpuscular Hgb Conc 33.2 g/dL (32.0-36.0); Mean Corpuscular Volume 90.6 fL (80.0-100.0); Mean Platelet Volume 9.3 fL (9.4-12.4); Platelet Count 229 K/uL (130-400); RDW Coefficient of Variation 14.4 % (11.5-14.5); RDW Standard Deviation 47.4 fL (36.4-46.3); Red Blood Count 4.56 M/uL (4.63-6.08); White Blood Count 12.39 K/ul (4.8-10.8)
[2022-03-31 08:28] LABS: INR 1.4 (0.9-1.1)
[2022-03-31 08:43] LABS: Calcium 8.5 mg/dl (8.5-10.1); Creatinine Clr Calc Pharmacy 53.4 ml/min; Est GFR (African American) 76.8 ml/min; Est GFR (Non-African American) 66.3 ml/min; Magnesium 1.6 mg/dl (1.7-2.4)
[2022-03-31] MEDS ORDERED: CLOPIDOGREL BISULFATE 75 MG TAB PO SCH (09:00)
[2022-03-31] MEDS ORDERED: METOPROLOL SUCC 25MG EXT REL TAB PO SCH (09:00)
[2022-03-31] MEDS ORDERED: ATORVASTATIN 40 MG TAB PO SCH (09:00)
[2022-03-31] MEDS ORDERED: FINASTERIDE 5 MG TAB PO SCH (09:00)
[2022-03-31] MEDS ORDERED: FAMOTIDINE 40 MG TABLET PO SCH (09:00)
[2022-03-31] MEDS ORDERED: OMEGA COMBINATION NO 7 PO SCH (09:00)
[2022-03-31] MEDS ORDERED: AMIODARONE 200 MG TAB PO SCH (09:00)
[2022-03-31] MEDS ORDERED: TAMSULOSIN HCL 0.4 MG CAP PO SCH (09:00)
[2022-03-31] MEDS ORDERED: [UNRECOGNIZED DRUG - OTHER] PO SCH (09:00)
[2022-03-31] MEDS ORDERED: MAGNESIUM SULFATE / D5W 1 GM/100 ML BAG IV ONE (09:48)
[2022-03-31] MEDS ORDERED: POTASSIUM CHLORIDE 10 MEQ / 100ML WTR IV STA (09:48)
[2022-03-31] MEDS: POTASSIUM CHLORIDE / WTR 10 MEQ/100 ML PLCT IV SCH ×3 (10:15→13:04)
[2022-03-31] MEDS: MAGNESIUM SULFATE / D5W 1 GM/100 ML BAG IV SCH ×2 (10:15→12:17)
--- NOTE | 2022-03-31 10:42 | XCELERA ---
[id number]
--- NOTE | 2022-03-31 10:44 | Cardiology Progress Note ---
Date of Service March 31, 2022 Assessment & Plan (1) Paroxysmal atrial fibrillation: Plan: -no recurrence since the postoperative period. -amiodarone was discontinued on this hospital admission. -presented with an elevated INR at time of admission. -would favor low-dose Xarelto (creatinine clearance 53.4 in a thin, elderly man). (2) Elevated troponin: Plan: -doubt this represents coronary ischemia. (3) Coronary artery disease: Plan: -s/p 3 vessel CABG (MIRAMONTES to the LAD, SVG to OM, PDA), January 2022. -continue medical management. (4) Chest pain: Plan: -as above, not likely coronary ischemia. (5) Ischemic cardiomyopathy: Plan: -LVEF now 40-45% with an anteroapical wall motion abnormality. -continue metoprolol succinate, isosorbide dinitrate, and hydralazine. Admission and Anticipated Discharge Date Admission Date: March 30, 2022 Subjective The patient is resting comfortably in bed without complaints of chest pain or dyspnea. Physical Exam Physical Exam: In general is well-developed well-nourished white male in no acute distress. HEENT exam is negative. Neck is supple with full carotid upstrokes. No obvious bruits. Jugular venous pressure is difficult to assess. Cardiovascular exam reveals a regular rhythm with distant heart sounds. No obvious murmurs. No S3. Lungs are clear without rales, rhonchi wheezes. Chest reveals a well-healed midline scar. Abdomen is obese without bruits. Extremities reveal intact radial artery pulses bilaterally. There is no peripheral edema. Results & Data ([facility]) Vital Signs (Past 12 Hours) Vital Signs Temp Pulse Pulse Resp BP Pulse Ox O2 Del Method 03/31/22 08:20 36.9 C 93 H 18 124/78 96 Room Air 03/31/22 03:44 37.5 C 62 18 119/67 95 Room Air 03/31/22 00:50 98 H 03/30/22 23:00 37.6 C H 93 H 18 112/64 94 Laboratory Results High sensitivity troponin on presentation was 65.7, follow-up value 56. Diagnostic Findings Echocardiogram notes mild left ventricular dysfunction with ejection fraction 40-45%. There is distal anterior wall and apical akinesis. No LV thrombus. Mild mitral regurgitation. equipment monitor phototypesetting is benign. PG Care Time/CCT Total # of Minutes Spent Total Time Spent with Patient: Total time spent is greater than 50% in coordination of care (as documented) at patient's floor/unit and/or counseling patient: Coding Level of Care Code 25373 Subseq Hosp Care Lvl 3 Diagnoses Paroxysmal atrial fibrillation I48.0 Elevated troponin R77.8 Coronary artery disease I25.10 Chest pain R07.9 Ischemic cardiomyopathy I25.5
--- NOTE | 2022-03-31 14:50 | Discharge Summary ---
Date of Service March 31, 2022 Admission HPI Per Admitting Provider Pt has a history of a recent CABG and presents with chest pain and mild elevation of Hstrop, his cp has some reproducible quality and ECG has LBBB which is not new. Pt says chest pain was at rest but associated congested cough, did not radiate and no associated sx, has not had this pain since his CABG, no other changes in health except laxative associated diarrhea which resolved with stopping laxatives. Daughter at bedside and updated Principal Diagnosis non cardiac chest pain change of chronic anticoagulation Discharge Exam The patient appeared stable Vital signs as documented. Lungs are clear to auscultation and appear unlabored Cardiac exam, Rhythm is regular.. systolic murmurs, rubs or gallops. Abdominal exam reveals normal bowel sounds, soft non tender, no masses Extremities are nonedematous and both pedal pulses are normal. Neurologic exam is alert and oriented, no focal loss of strength or sensation Skin is without bruises or rashes Psychologically is without concerns for anxiety or depression. Discharge Data Allergies Allergy/AdvReac Type Severity Reaction Status Date / Time No Known Drug Allergies Allergy Verified 03/02/22 11:38 Consultations 03/30/22 09:11 ED Decision to Admit Stat 03/30/22 12:52 Consult Cardiology Routine Ordered Studies Chest X-Ray 03/30/22 07:49 XR chest 1V portable CLINICAL HISTORY: Chest Pain TECHNIQUE: Single frontal radiograph of the chest was obtained. Comparison: Comparison is made to chest radiograph 02/09/2022 FINDINGS: Median sternotomy wires are unchanged. Calcified aortic knob is seen. Lungs are underinflated but clear. No evidence of pleural effusion or pneumothorax. IMPRESSION: No acute chest disease. ACT 112: Negative or not required by law. Electronically signed by: Matt Monge M.D. 03/30/2022 8:16 AM Hospital Course (1) Elevated troponin: Associated chest pain at rest elevated troponin with recent revascularization, repeat went down echo shows improved EF from before (40-45%) no RWMA Plavix, lasix, atorvastatin, isosorbide, metoprolol,hydralazine EKG has baseline left bundle branch block is present (2) Paroxysmal atrial fibrillation: amiodarone, metoprolol, and coumadin for emboic prevention, supratherapeutic INR, will trend, since >5 did contact pharmacy, xarelto, renal dose adjusted is on formulary and family will afford (3) Hyperlipidemia: atorvastatin (4) Prediabetes: last a1c is 5.9, will have on a carbohydrate restricted diet (5) Benign prostatic hyperplasia: Total Time Total Time Spent Total Time Spent (In Minutes): It required greater than 30 minutes to prepare this patient for discharge Discharge Plan Discharge Items Patient Disposition: Home - Self-Care Reason For Visit: CHEST PAIN Discharge Diagnosis: Chest pain determined to be noncardiac in origin Atrial fibrillation with change of anticoagulant to Xarelto Activity: Per Instructions section Activity Comment: Continue to slowly increase activity Non-emergency contact: Primary Care Provider and Health Careers Instructor Call non-emergency contact if: your symptoms worsen Follow-up/Referrals: Albert Sharma MD [Primary Care Provider] - Diet: Heart Healthy and Low Sodium (2gm) Addtl Attending Provider Instructions: Your chest pain was felt to be noncardiogenic in nature. Repeat enzyme levels were favorable and your echocardiogram did not show new changes. Case was reviewed by Dr. Delgado and he feels you may benefit from a change of your anticoagulant from warfarin to Xarelto. Your warfarin level was very high on presentation. We checked with your pharmacy and your Xarelto is now in better coverage for your insurance Your family expressed a concern that you might have some depression after recent surgery. We did discuss this while you are here in the hospital and you inform me you wish to not try any medications for this but I would encourage you to call and contact your primary care physician if this becomes a bigger issue for you. Pending Studies at Discharge: No Stand-Alone Forms: My [facility], Smoking Cessation Medications and DC Order Prescriptions: New Xarelto 15 mg tablet 15 mg PO DAILY Qty: 30 5RF Rx Instructions: must administer with evening meal Continued atorvastatin 40 mg tablet 40 mg PO DAILY Qty: 90 3RF finasteride 5 mg tablet 5 mg PO DAILY Qty: 90 1RF tamsulosin 0.4 mg capsule 0.4 mg PO DAILY Qty: 90 3RF amiodarone 200 mg tablet 200 mg PO DAILY clopidogrel 75 mg tablet 75 mg PO DAILY famotidine 40 mg tablet 40 mg PO DAILY furosemide [Lasix] 80 mg tablet 80 mg PO BID hydralazine 10 mg tablet 10 mg PO TID isosorbide dinitrate 5 mg tablet 5 mg PO TID Rx Instructions: allow nitrate-free interval of 12-14 hrs per 24-hr period metoprolol succinate 25 mg tablet extended release 24 hr 12.5 mg PO DAILY potassium chloride 10 mEq tablet extended release 20 meq PO BID omega 3,6,9 combination no.7 92 mg (43 mg-22 [id number]) Tablet,Chewable 92 mg PO DAILY Discontinued warfarin 1 mg tablet 1 mg PO DAILY Discharge Orders: Discharge Order (Routine); Ordered 03/31/22 Ordered By: Adis Pandya/Other Patient Handouts: Warning Signs of a Heart Attack Admission Data Admit Date/Time: 03/30/22 10:31 Attending Provider: Adis Garcia Admit Provider: Adis Garcia Primary Care Provider: Albert Sharma Other Providers: Adis Garcia ; Albert Fairchild Other Interventions: Discharge Summary Assessment (RN) Last Done: 03/31/22 14:20 Coding Level of Care Code D/C DAY MANAGEMENT >30 MINS Diagnoses Elevated troponin R77.8 Paroxysmal atrial fibrillation I48.0 Hyperlipidemia E78.5 Prediabetes R73.03 Benign prostatic hyperplasia N40.0
== END 2022-03-31 18:11 | disposition home or self-care (01) ==
LOC: 1E 07:40 → ED 07:40 → 1E 12:42 → 2S 17:01

== ENCOUNTER 2022-04-16 15:20 | Inpatient (IN) ==
[2022-04-16 17:11] LABS: Basophils # (auto) 0.04 K/uL (0-0.2); Basophils % (auto) 0.5 %; Eosinophils # (auto) 0.44 K/uL (0-0.50); Eosinophils % (auto) 5.1 %; Hematocrit (blood only) 39.4 % (40.1-51.0); Hemoglobin 13.2 g/dl (14.0-18.0); Immature Granulocytes # (auto) 0.16 K/uL (0.00-0.02); Immature Granulocytes % (auto) 1.9 %; Lymphocytes % (auto) 9.3 %; Mean Corpuscular Hemoglobin 29.5 pg (25.0-34.0); Mean Corpuscular Hgb Conc 33.5 g/dL (32.0-36.0); Mean Corpuscular Volume 87.9 fL (80.0-100.0); Mean Platelet Volume 9.1 fL (9.4-12.4); Monocytes # (auto) 0.67 K/uL (0.24-0.82); Monocytes % (auto) 7.8 %; Neutrophils # (auto) 6.45 K/uL (1.4-6.5); Neutrophils % (auto) 75.4 %; Platelet Count 313 K/uL (130-400); RDW Standard Deviation 45.1 fL (36.4-46.3); Red Blood Count 4.48 M/uL (4.63-6.08); White Blood Count 8.56 K/ul (4.8-10.8)
[2022-04-16 17:45] LABS: Albumin Globulin Ratio 1.1 (0.9-2); Albumin Level 3.5 gm/dl (3.4-5.0); BUN Creatinine Ratio 10.3 (10-20); Bilirubin,Total 0.4 mg/dl (0.2-1.0); Calcium 8.9 mg/dl (8.5-10.1); Creatinine Clr Calc Pharmacy 28.9 ml/min; Est GFR (African American) 36.6 ml/min; Est GFR (Non-African American) 31.5 ml/min; Globulin 3.2 gm/dl (2.5-4.0); Potassium 3.9 mmol/L (3.5-5.1); Total Protein 6.7 gm/dl (6.0-8.3)
--- NOTE | 2022-04-16 18:01 | XRay Report ---
XR chest 2V PA/lateral CLINICAL HISTORY: Fever COMPARISON STUDY: Chest radiograph March 30, 2022. FINDINGS: Elevation of the left hemidiaphragm is unchanged. There are median sternotomy wires. Mild c ardiomegaly is noted without evidence for pulmonary edema. No consolidation to suggest pneumonia. Erika ear left basilar opacity reflects atelectasis. IMPRESSION: No acute cardiopulmonary findings. ACT 112: Negative or not required by law. Electronically signed by: Power Tran M.D. 04/16/2022 5:59 PM
[2022-04-16] MEDS ORDERED: SODIUM CHLORIDE 0.9% 1000ML 500 ML IV ONE (18:20)
--- NOTE | 2022-04-16 18:35 | Emergency Department Note ---
History of Present Illness General Chief complaint: Fever Stated complaint: FEVER, VOMITING, FALL Time Seen by Provider: 04/16/22 18:04 Source: patient, family (Family members who are at the bedside), RN notes reviewed and old records reviewed Mode of arrival: ambulatory Limitations: no limitations History of Present Illness This patient is an 81-year-old male who comes in after he has had several falls recently and he is weak. He had a CABG done in [place] on February 10, 2022 he was discharged on February 15 and was doing fine since then except for has been losing weight and being somewhat depressed according to the family. He was actually admitted briefly on March 30 here for what was ultimately deemed to be noncardiac chest pain he follow-up with his regular doctor on April 09 and was started on Mirtazapine and the family thought it was helping him. He started falling over the weekend and fell 3 times over the weekend no injury the not sure why he is falling he had no prolonged time on the ground. He just seems diffusely weak he is now using a walker which she does not typically do. They also said he had low-grade temperature this morning. No injury. They thought that he had some fluid coming from the wound but it is gotten better. He is on Bactrim. No dysuria or hematuria. no headache. Home Medications Medication Instructions Recorded Confirmed Type clopidogrel 75 mg tablet 75 mg PO QAM 02/21/22 04/16/22 History furosemide 80 mg tablet (Lasix) 80 mg PO BID 02/21/22 04/16/22 History hydralazine 10 mg tablet 10 mg PO TID 02/21/22 04/16/22 History isosorbide dinitrate 5 mg tablet 5 mg PO TID 02/21/22 04/16/22 History metoprolol succinate 25 mg 12.5 mg PO QAM 02/21/22 04/16/22 History tablet,extended release 24 hr potassium chloride 10 mEq 20 meq PO BID 02/21/22 04/16/22 History tablet,extended release mirtazapine 15 mg tablet (Remeron) 15 mg PO HS #30 tabs 04/01/22 04/16/22 Rx nitroglycerin 0.4 mg sublingual 0.4 mg sublingual Q5M PRN chest 04/09/22 04/16/22 Rx tablet (Nitrostat) pain #30 tabs sulfamethoxazole 800 1 tab PO BID 7 days #14 tabs 04/10/22 04/16/22 Rx mg-trimethoprim 160 mg tablet (Bactrim DS) atorvastatin 40 mg tablet 40 mg PO HS 04/16/22 04/16/22 History finasteride 5 mg tablet 5 mg PO QAM 04/16/22 04/16/22 History rivaroxaban 15 mg tablet (Xarelto) 15 mg PO QDD 04/16/22 04/16/22 History tamsulosin 0.4 mg capsule 0.4 mg PO QAM 04/16/22 04/16/22 History Allergies Allergy/AdvReac Type Severity Reaction Status Date / Time No Known Allergies Allergy Verified 04/16/22 19:07 Past Med/Surg History Medical History Benign prostatic hyperplasia Disequilibrium Hearing loss Hypertension Male erectile disorder of organic origin Mitral regurgitation Prediabetes Tinnitus Vitamin D deficiency Surgical History History of coronary artery bypass graft x 3 02[place] [facility] [place] History of transurethral prostatectomy (09/14/12) Family History Father Colorectal cancer Mother Cancer Brother Laryngeal cancer Sister Alzheimer disease Other No family history of adverse response to anesthesia No family history of bleeding disorder Denies family history of Ovarian cancer Prostate cancer Breast cancer Social History Smoking Status: Never smoker Age Started Using Tobacco: 15; Second Hand Exposure: No; Hx Alcohol Use: Yes Alcohol type: beer Alcohol Intake Frequency Comment: About 2 alcoholic beverages per day Hx Substance Use: No Preferred Language: Persian Communication Ability: Effective Visual Impairment: No Limitations Hearing Ability: Use of Hearing Aid [employer] Required: No Beliefs That Will Affect Care: None marital status: / Current Living Situation: Alone current occupational status: retired Feels Safe at Home: Yes caffeine: Yes Dental Care, Regularly: No Physical Activity Frequency: 1-2 Times per Week Seatbelt Use: always Assistive Devices: Cane, Denture - Upper and Hearing Aid - Bilateral Review of Systems A total of 10 systems reviewed and were otherwise negative Physical Exam Vital Signs Vital Signs - 24 hr 04/16/22 15:24 04/16/22 18:09 04/16/22 18:10 Temperature 37.4 C Temperature Source Temporal Artery Scan Pulse Rate 102 H 80 Pulse Rate [Apical] 94 H Respiratory Rate 20 16 16 Respiratory Effort / Characteristics Non-Labored Respiratory Depth Normal Blood Pressure 109/68 Blood Pressure [Left Arm] 112/75 Blood Pressure Mean 81 Blood Pressure Mean [Left Arm] 87 Blood Pressure Position Sitting Pulse Oximetry 93 94 94 Oxygen Delivery Method Room Air Sepsis Recent Fever Within 48 Hours Yes Sepsis New/Unexplained Change in Mental Status No Sepsis Action Taken by Nursing No Action Required 04/16/22 20:00 Temperature Temperature Source Pulse Rate Pulse Rate [Apical] 96 H Respiratory Rate 20 Respiratory Effort / Characteristics Respiratory Depth Blood Pressure Blood Pressure [Left Arm] 140/86 Blood Pressure Mean Blood Pressure Mean [Left Arm] 104 Blood Pressure Position Pulse Oximetry 95 Oxygen Delivery Method Sepsis Recent Fever Within 48 Hours Sepsis New/Unexplained Change in Mental Status Sepsis Action Taken by Nursing General: Well developed well nourished sleepy but otherwise not ill-appearing older male who appears in no acute distress, breathing comfortably on room air. Normal speech HEENT: Normal cephalic atraumatic. Pupils are equal round and reactive to light. Sclera anicteric extraocular movements are intact. Oropharynx is pink with moist mucous membranes. No swelling of the mouth lips or tongue. Neck: Supple with a midline trachea. No meningeal signs or stiffness, no JVD or bruits. No Stridor. Chest: Clear to auscultation bilaterally. No wheezes or rhonchi. No increased work of breathing. Well-healing thoracotomy incision without any redness pus drainage or instability Heart: Regular rate and rhythm without murmurs or gallops. Abdomen: Soft nontender, nondistended without rebound guarding or rigidity. Extremities: No cyanosis clubbing or edema. No calf tenderness or assymetry Spine/Back. Non tender to palpation. No CVA tenderness Skin: Good turgor without rashes. Neurologic exam: Cranial nerves two through 12 are intact. Motor and sensation are intact and symmetrical throughout. Course Administered Medications Discontinued Medications Sodium Chloride (Nss 1000ml) 500 mls @ 999 mls/hr IV .Q31M ONE Stop: 04/16/22 18:50 Last Infusion: 04/16/22 19:25 Dose: 0 mls/hr Documented By: Admin: 04/16/22 18:36 Dose: 999 mls/hr Documented By: FIDEL Medical Decision Making Differential Diagnosis Infection, intracranial process, dehydration, cardiac disease, electrolyte or metabolic abnormality, depression Medical Records Attestation: I reviewed the patient's medical records. Home Medications Current Medication List: was personally reviewed by me Laboratory Data Attestation: I reviewed the patient's lab results. Result diagrams: 04/16/22 16:47 04/16/22 16:47 Lab Results 04/16/22 04/16/22 04/16/22 Range/Units 16:47 16:47 16:47 WBC 8.56 (4.8-10.8) K/ul RBC 4.48 L (4.63-6.08) M/uL Hgb 13.2 L (14.0-18.0) g/dl Hct 39.4 L (40.1-51.0) % MCV 87.9 (80.0-100.0) fL MCH 29.5 (25.0-34.0) pg MCHC 33.5 (32.0-36.0) g/dL RDW Std Deviation 45.1 (36.4-46.3) fL RDW Coeff of Asiya 14.0 (11.5-14.5) % Plt Count 313 (130-400) K/uL MPV 9.1 L (9.4-12.4) fL Immature Gran % (Auto) 1.9 % Neut % (Auto) 75.4 % Lymph % (Auto) 9.3 % [place] % (Auto) 7.8 % Eos % (Auto) 5.1 % Baso % (Auto) 0.5 % Neut # (Auto) 6.45 (1.4-6.5) K/uL Lymph # (Auto) 0.80 L (1.2-3.4) K/uL [place] # (Auto) 0.67 (0.24-0.82) K/uL Eos # (Auto) 0.44 (0-0.50) K/uL Baso # (Auto) 0.04 (0-0.2) K/uL Immature Gran # (Auto) 0.16 H (0.00-0.02) K/uL Sodium 136 (136-145) mmol/L Potassium 3.9 (3.5-5.1) mmol/L Chloride 97 L (98-107) mmol/L Carbon Dioxide 30 (21-32) mmol/L Anion Gap 9 (3-11) BUN 20 (6-23) mg/dl Creatinine 1.94 H (0.6-1.4) mg/dl Est Cr Clr Drug Dosing 28.9 ml/min Est GFR ( Amer) 36.6 ml/min Est GFR (Non-Af Amer) 31.5 ml/min BUN/Creatinine Ratio 10.3 (10-20) Glucose 112 H (70-99(Fasting)) mg/dl Calcium 8.9 (8.5-10.1) mg/dl Total Bilirubin 0.4 (0.2-1.0) mg/dl AST 47 H (13-39) U/L ALT 77 H (7-52) U/L Alkaline Phosphatase 129 H (34-104) U/L Troponin I High Sens 68.8 H* D (0-20) pg/ml Total Protein 6.7 (6.0-8.3) gm/dl Albumin 3.5 (3.4-5.0) gm/dl Globulin 3.2 (2.5-4.0) gm/dl Albumin/Globulin Ratio 1.1 (0.9-2) Urine Color Urine Appearance (Clear) Urine pH (4.5-7.5) Ur Specific [place] (1.000-1.030) Urine Protein (Negative) Urine Glucose (UA) (Negative) Urine Ketones (Negative) Urine Blood (Negative) Urine Nitrite (Negative) Urine Bilirubin (Negative) Urine Urobilinogen (Negative) Ur Leukocyte Esterase (Negative) SARS-CoV-2, RNA, NAAT (NEGATIVE) 04/16/22 04/16/22 04/16/22 Range/Units 19:25 20:15 20:15 WBC (4.8-10.8) K/ul RBC (4.63-6.08) M/uL Hgb (14.0-18.0) g/dl Hct (40.1-51.0) % MCV (80.0-100.0) fL MCH (25.0-34.0) pg MCHC (32.0-36.0) g/dL RDW Std Deviation (36.4-46.3) fL RDW Coeff of Asiya (11.5-14.5) % Plt Count (130-400) K/uL MPV (9.4-12.4) fL Immature Gran % (Auto) % Neut % (Auto) % Lymph % (Auto) % [place] % (Auto) % Eos % (Auto) % Baso % (Auto) % Neut # (Auto) (1.4-6.5) K/uL Lymph # (Auto) (1.2-3.4) K/uL [place] # (Auto) (0.24-0.82) K/uL Eos # (Auto) (0-0.50) K/uL Baso # (Auto) (0-0.2) K/uL Immature Gran # (Auto) (0.00-0.02) K/uL Sodium (136-145) mmol/L Potassium (3.5-5.1) mmol/L Chloride (98-107) mmol/L Carbon Dioxide (21-32) mmol/L Anion Gap (3-11) BUN (6-23) mg/dl Creatinine (0.6-1.4) mg/dl Est Cr Clr Drug Dosing ml/min Est GFR ( Amer) ml/min Est GFR (Non-Af Amer) ml/min BUN/Creatinine Ratio (10-20) Glucose (70-99(Fasting)) mg/dl Calcium (8.5-10.1) mg/dl Total Bilirubin (0.2-1.0) mg/dl AST (13-39) U/L ALT (7-52) U/L Alkaline Phosphatase (34-104) U/L Troponin I High Sens 65.9 H* (0-20) pg/ml Total Protein (6.0-8.3) gm/dl Albumin (3.4-5.0) gm/dl Globulin (2.5-4.0) gm/dl Albumin/Globulin Ratio (0.9-2) Urine Color Yellow Urine Appearance Clear (Clear) Urine pH 7.5 (4.5-7.5) Ur Specific [place] 1.008 (1.000-1.030) Urine Protein Negative (Negative) Urine Glucose (UA) Negative (Negative) Urine Ketones Negative (Negative) Urine Blood Negative (Negative) Urine Nitrite Negative (Negative) Urine Bilirubin Negative (Negative) Urine Urobilinogen Negative (Negative) Ur Leukocyte Esterase Negative (Negative) SARS-CoV-2, RNA, NAAT NEGATIVE (NEGATIVE) Imaging Data Attestation: I personally reviewed and interpreted this imaging study as follows: My Impression: Chest x-rayno acute infiltrate, failure, pneumothorax seen Radiologist's Impression: Chest X-Ray 04/16/22 15:28 XR chest 2V PA/lateral CLINICAL HISTORY: Fever COMPARISON STUDY: Chest radiograph March 30, 2022. FINDINGS: Elevation of the left hemidiaphragm is unchanged. There are median sternotomy wires. Mild cardiomegaly is noted without evidence for pulmonary edema. No consolidation to suggest pneumonia. Linear left basilar opacity reflects atelectasis. IMPRESSION: No acute cardiopulmonary findings. ACT 112: Negative or not required by law. Electronically signed by: Power Tran M.D. 04/16/2022 5:[address] 04/16/22 18:20 CT head/brain wo con CLINICAL HISTORY: 81 years-old Male with freq falls. Acute head trauma status post fall TECHNIQUE: Multiple axial CT images of the head were obtained without contrast. A dose lowering technique was utilized adhering to the principles of ALARA. CT DOSE: 614.27 mGy.cm COMPARISON: Head CT 12/08/2017 FINDINGS: No acute intracranial hemorrhage, midline shift, intracranial mass, hydrocephalus, territorial ischemia or abnormal extra-axial collection. Age- related involutional changes. White matter hypodensities suggest chronic microvascular ischemic disease. Cerebral vascular calcifications. The calvarium is intact. Left greater than right mastoid effusions. Paranasal sinuses are clear. IMPRESSION: 1. No acute intracranial abnormality or calvarial fracture. 2. Bilateral mastoid effusions. ACT 112: Negative or not required by law. The above report was generated using voice recognition software. It may contain grammatical, syntax or spelling errors. Electronically signed by: Salty Rodrigues M.D. 04/16/2022 7:22 PM ECG Data Attestation: I personally reviewed and interpreted this ECG as follows: Indication: + altered mental status and + weakness Rate (beats per minute): 98 Rhythm: + sinus rhythm ECG Intervals/blocks: + First degree AV block and + Left bundle branch block ECG [place]: + Left axis deviation ECG ST segments: + Normal ST segments ECG Findings: no PACs or no PVCs Comparison ECG Date: from (04/09/22) Change: no significant change Additional Comments: EKG #2: Normal sinus rhythm with a rate of 93. First-degree AV block. Left bundle branch block. No significant change compared to EKG #1 MDM Narrative This patient comes in as scribed above he has had generalized weakness and several falls. He is afebrile here. IV access was established and blood work was obtained and he was hydrated with IV normal saline. He has no white count to suggest infection has just a low-grade temperature. His chest x-ray did not show congestive heart failure, pneumonia, or pneumothorax. EKG shows a baseline left bundle branch block with no acute ischemic changes. CAT scan of his head shows no acute findings. His creatinine is almost double baseline and it may be that he is dry. COVID testing is negative. EKG x2 shows no ischemic changes. Troponins mildly elevated however on the second troponin it is not trending upward. I do think he needs to be admitted for his weakness and his renal insufficiency/failure. I will consult Dr. Justin to see him in the ER for these measures. Continuous cardiac monitoring: Orders placed in EMR for continuous cardiac monitoring. Upon my interpretation ,he was noted to be in normal sinus rhythm baseline left bundle branch block Impression & Plan Weakness, Acute renal insufficiency, Frequent falls, Elevated troponin I level, Lab test negative for COVID-19 virus Discharge Plan Visit Data Chief Complaint: Fever Stated Complaint: FEVER, VOMITING, FALL ED Provider: Bennie Max Discharge Problem: Weakness, Acute renal insufficiency, Frequent falls, Elevated troponin I level, Lab test negative for COVID-19 virus Forms Stand Alone Forms: My [facility] Prescriptions Prescriptions: No Action clopidogrel 75 mg tablet 75 mg PO QAM furosemide [Lasix] 80 mg tablet 80 mg PO BID Rx Instructions: TAKES QAM & 1400. hydralazine 10 mg tablet 10 mg PO TID Hold Instructions: for low blood pressures Rx Instructions: ON HOLD isosorbide dinitrate 5 mg tablet 5 mg PO TID Rx Instructions: TAKES QAM, 1400, & HS. allow nitrate-free interval of 12-14 hrs per 24-hr period metoprolol succinate 25 mg tablet extended release 24 hr 12.5 mg PO QAM potassium chloride 10 mEq tablet extended release 20 meq PO BID sulfamethoxazole-trimethoprim [Bactrim DS] 800-160 mg tablet 1 tab PO BID 7 Days Qty: 14 0RF Rx Instructions: STARTED 04/11/22 FOR 7 DAYS. nitroglycerin [Nitrostat] 0.4 mg tablet, sublingual 0.4 mg sublingual Q5M PRN (Reason: chest pain) Qty: 30 3RF Rx Instructions: do not exceed 3 doses per episode mirtazapine [Remeron] 15 mg tablet 15 mg PO HS Qty: 30 0RF atorvastatin 40 mg tablet 40 mg PO HS tamsulosin 0.4 mg capsule 0.4 mg PO QAM finasteride 5 mg tablet 5 mg PO QAM Xarelto 15 mg tablet 15 mg PO QDD Rx Instructions: must administer with evening meal Referrals Referrals: Albert Sharma MD [Primary Care Provider] -
--- NOTE | 2022-04-16 19:23 | CT Scan Report ---
CT head/brain wo con CLINICAL HISTORY: 81 years-old Male with freq falls. Acute head trauma status post fall TECHNIQUE: Multiple axial CT images of the head were obtained without contrast. A dose lowering tech nique was utilized adhering to the principles of ALARA. CT DOSE: 614.27 mGy.cm COMPARISON: Head CT 12/08/2017 FINDINGS: No acute intracranial hemorrhage, midline shift, intracranial mass, hydrocephalus, territorial ischem ia or abnormal extra-axial collection. Age-related involutional changes. White matter hypodensities s uggest chronic microvascular ischemic disease. Cerebral vascular calcifications. The calvarium is intact. Left greater than right mastoid effusions. Paranasal sinuses are clear. IMPRESSION: 1. No acute intracranial abnormality or calvarial fracture. 2. Bilateral mastoid effusions. ACT 112: Negative or not required by law. The above report was generated using voice recognition software. It may contain grammatical, syntax o r spelling errors. Electronically signed by: Salty Rodrigues M.D. 04/16/2022 7:22 PM
[2022-04-16 19:43] LABS: Appearance Urine Clear (Clear); Bilirubin Urine Negative (Negative); Blood Urine Negative (Negative); Color Urine Yellow; Glucose Urine UA Negative (Negative); Ketones Urine Negative (Negative); Leukocyte Esterase Urine Negative (Negative); Nitrite Urine Negative (Negative); Protein Urine Negative (Negative); Specific Gravity Urine 1.008 (1.000-1.030); Urobilinogen Urine Negative (Negative); pH Urine 7.5 (4.5-7.5)
--- NOTE | 2022-04-16 20:36 | History & Physical Report ---
Date of Service April 16, 2022 Assessment & Plan (1) Generalized weakness: Plan: 81 year old male w/ STEMI 02/09/22 (IABP), transferred to [facility]. Had 02/10/22 CABGx3, complicated by post op afib and EF 20-25%. He is on Xarelto for parox afib. He presents for temp of 99.9F, malaise, and LULI. He was admitted 03/30 briefly for what was thought to be noncardiac chest pain. He was started on Bactrim in outpatient setting for possible postop wound infection. - considered mild surgical site infection vs other infectious source vs malnourishment vs intermittent hypotension - vitals reviewed. SIRS neg. - labs reviewed: LULI noted. No leukocytosis. - blood cultures pending - UA neg - cxr w/o acute findings or infiltrates - dapto for empiric coverage of possible surgical site infection (sternotomy site). continue presumed MRSA coverage as he was on Bactrim as outpatient - monitor on telemetry for arrhythmia (2) Acute renal insufficiency: Plan: - follow BMP. d/c bactrim. - current drug CrCl 28.9. renally dose meds and avoid nephrotoxic agents - LULI: ddx drug-induced atn. vs cardiorenal. vs prerenal. defer FeNa testing for now. - can consider additional fluid in AM if needed. - hold PO lasix 80mg PO BID for now. reassess (3) Wound drainage: Plan: and w/ pain of sternum: Normal postop and post CABG pain vs mild surgical site infection. Lower suspicion of pericardial effusion. Will order echo. - Dapto as above. (4) Status post coronary artery bypass graft: Plan: - 02/10/22 [facility] He has followed both [facility] cardiology and [facility] cardiology. He will need a local outpatient cancer program coordinator as well as cardiac rehab. Inpatient cardiology will not be consulted this admission. (5) Depressed mood: Plan: - since heart surgery. reminded of who passed from MS-related complications 12 years ago - was started on mirtazapine several wks ago w/ improvement - has poor appetite; complaining of decreased sense of taste - dietary consult requested by family (6) Ischemic cardiomyopathy: Plan: - EF 20-25% noted post cabg in January 2022 (7) Liver enzyme elevation: Plan: - mild, stable from 03/30/22, elevated from prior. follow CMP (8) Paroxysmal atrial fibrillation: Plan: - monitor on telemetry. continue home regimen and Xarelto (9) Mastoid disorder: Plan: - bilateral mastoid effusions noted on head CT. However, TMs wnl. Lower suspicion of systemic infection from this. (10) Falls: Plan: mild, no signifcant head trauma. Head CT neg. (11) Elevated troponin: Plan: - has peaked (12) Hypertension: Plan: - continue holding PO hydralazine for soft BPs in outpatient setting (13) Prediabetes: Plan: A1c 5.9 02/05/22 (14) Chronic anticoagulation: Plan: - continue home Xarelto (15) Asymmetrical sensorineural hearing loss: Plan: - chronic (16) Benign prostatic hyperplasia: Plan: - chronic (17) Hyperlipidemia: Plan: - continue home statin Plan Diet/fluids: HH, low Na. No IV fluids ppx: home Xarelto code: full dispo: med tele History of Present Illness Chief Complaint: generalized weakness Primary Care Provider: Albert Sharma MD 81 year old male w/ HTN, HLD, prediabetes, and acute MS seen at [facility] on 02/09/22, transferred to [facility] for CABGx3, complicated by post op afib and EF 20-25%. He is on Xarelto for parox afib. He presents today for 3 days of generalized weakness + mild falls and 1 days of chills and temp of 99.9F this afternoon. He was admitted to [facility] briefly on 03/30/22 for what was thought to be noncardiac chest pain. He was started on Bactrim in outpatient on 04/10/22 setting for possible postop wound infection as the upper part of his sternotomy wound had been draining clear brown-green tinted fluid, noted by home health nursing. He denies significantly hitting his head during the falls. He does have intermittent discomfort at the upper part of the sternotomy site, though there has not been recent drainage. Since his CABG in January, his family has stayed with him from 12-24 hours a day. Currently, he denies other symptoms such as shortness of breath, headache, or diarrhea. He has mild nausea. Hydralazine held since 03/30/22 pcp visit for low bp. Never smoker though had heavy 2nd hand smoke exposure. History obtained mostly from patient's 2 daughters. Patient was tired, but participatory in the conversation. ED course: NSS [address] was negative. LULI, Cr 1.05->1.94. Of note, he is on 80mg PO Lasix BID as outpatient. Allergies Allergy/AdvReac Type Severity Reaction Status Date / Time No Known Allergies Allergy Verified 04/16/22 19:07 Home Medications Medication Instructions Recorded Confirmed Type clopidogrel 75 mg tablet 75 mg PO QAM 02/21/22 04/16/22 History furosemide 80 mg tablet (Lasix) 80 mg PO BID 02/21/22 04/16/22 History hydralazine 10 mg tablet 10 mg PO TID 02/21/22 04/16/22 History isosorbide dinitrate 5 mg tablet 5 mg PO TID 02/21/22 04/16/22 History metoprolol succinate 25 mg 12.5 mg PO QAM 02/21/22 04/16/22 History tablet,extended release 24 hr potassium chloride 10 mEq 20 meq PO BID 02/21/22 04/16/22 History tablet,extended release mirtazapine 15 mg tablet (Remeron) 15 mg PO HS #30 tabs 04/01/22 04/16/22 Rx nitroglycerin 0.4 mg sublingual 0.4 mg sublingual Q5M PRN chest 04/09/22 04/16/22 Rx tablet (Nitrostat) pain #30 tabs sulfamethoxazole 800 1 tab PO BID 7 days #14 tabs 04/10/22 04/16/22 Rx mg-trimethoprim 160 mg tablet (Bactrim DS) atorvastatin 40 mg tablet 40 mg PO HS 04/16/22 04/16/22 History finasteride 5 mg tablet 5 mg PO QAM 04/16/22 04/16/22 History rivaroxaban 15 mg tablet (Xarelto) 15 mg PO QDD 04/16/22 04/16/22 History tamsulosin 0.4 mg capsule 0.4 mg PO QAM 04/16/22 04/16/22 History Past Med/Surg History Medical History Benign prostatic hyperplasia Disequilibrium Hearing loss Hypertension Male erectile disorder of organic origin Mitral regurgitation Prediabetes Tinnitus Vitamin D deficiency Surgical History History of coronary artery bypass graft x 3 [place] [facility] [place] History of transurethral prostatectomy (09/14/12) Family History Father Colorectal cancer Mother Cancer Brother Laryngeal cancer Sister Alzheimer disease Other No family history of adverse response to anesthesia No family history of bleeding disorder Denies family history of Ovarian cancer Prostate cancer Breast cancer Social History Smoking Status: Never smoker Age Started Using Tobacco: 15; Second Hand Exposure: No; Hx Alcohol Use: Yes Alcohol type: beer Alcohol Intake Frequency Comment: About 2 alcoholic beverages per day Hx Substance Use: No Preferred Language: Luxembourger Communication Ability: Effective Visual Impairment: No Limitations Hearing Ability: Use of Hearing Aid Material Movers Required: No Beliefs That Will Affect Care: None marital status: / Current Living Situation: Alone current occupational status: retired How many Children do You have: 4 Feels Safe at Home: Yes caffeine: Yes Dental Care, Regularly: No Physical Activity Frequency: 1-2 Times per Week Seatbelt Use: always Assistive Devices: Cane and Walker Review of Systems Review of Systems: All systems reviewed & are unremarkable except as noted in HPI & below Physical Exam Physical Exam: General: Grossly A&O. NAD. Cooperative. Patient is hard of hearing. HEENT: Atraumatic, normocephalic. EOMI. TMs wnl. Pulm: Mild bibasilar insp crackles. No accessory muscle use. Cardiac: RRR, -mrg. No LE edema. Abdominal: Nontender, nondistended, soft. Msk: Moving all extrem. Neuro: No gross deficits. Integ: Upper part of sternotomy, slight erythematous, minimal surrounding erythema. Slight self ttp per patient. No current wound drainage. Results & Data Results & Data ([facility]) Vital Signs (Past 12 Hours) Vital Signs Temp Pulse Pulse Resp BP BP Pulse Ox 04/16/22 20:00 96 H 20 140/86 95 04/16/22 18:10 94 H 16 112/75 94 04/16/22 18:09 80 16 94 04/16/22 15:24 37.4 C 102 H 20 109/68 93 O2 Del Method 04/16/22 20:00 04/16/22 18:10 04/16/22 18:09 04/16/22 15:24 Room Air Laboratory Results Cardiac Enzymes 04/16/22 04/16/22 04/16/22 Range/Units 16:47 16:47 20:15 AST 47 H (13-39) U/L Troponin I High Sens 68.8 H* D 65.9 H* (0-20) pg/ml CBC 04/16/22 Range/Units 16:47 WBC 8.56 (4.8-10.8) K/ul RBC 4.48 L (4.63-6.08) M/uL Hgb 13.2 L (14.0-18.0) g/dl Hct 39.4 L (40.1-51.0) % Plt Count 313 (130-400) K/uL Neut # (Auto) 6.45 (1.4-6.5) K/uL Lymph # (Auto) 0.80 L (1.2-3.4) K/uL Rains # (Auto) 0.67 (0.24-0.82) K/uL Eos # (Auto) 0.44 (0-0.50) K/uL Baso # (Auto) 0.04 (0-0.2) K/uL Comprehensive Metabolic Panel 04/16/22 Range/Units 16:47 Sodium 136 (136-145) mmol/L Potassium 3.9 (3.5-5.1) mmol/L Chloride 97 L (98-107) mmol/L Carbon Dioxide 30 (21-32) mmol/L BUN 20 (6-23) mg/dl Creatinine 1.94 H (0.6-1.4) mg/dl Glucose 112 H (70-99(Fasting)) mg/dl Calcium 8.9 (8.5-10.1) mg/dl AST 47 H (13-39) U/L ALT 77 H (7-52) U/L Alkaline Phosphatase 129 H (34-104) U/L Total Protein 6.7 (6.0-8.3) gm/dl Albumin 3.5 (3.4-5.0) gm/dl Intake and Output 08/01/22 08/01/22 08/01/22 06:59 14:59 22:59 Intake Total 500 / 500 Balance 500 / 500 Intake: IV 500 / 500 Sodium Chloride 0.9% 1000ML 500 500 / 500 ml @ 999 mls/hr IV .Q31M ONE Rx#:[id number] Other: Weight 68.9 kg Weight Measurement Method Built in [facility] Patient Weight 04/17/22 06:59 Weight 68.9 kg Diagnostic Findings Chest X-Ray 04/16/22 15:28 XR chest 2V PA/lateral CLINICAL HISTORY: Fever COMPARISON STUDY: Chest radiograph March 30, 2022. FINDINGS: Elevation of the left hemidiaphragm is unchanged. There are median sternotomy wires. Mild cardiomegaly is noted without evidence for pulmonary edema. No consolidation to suggest pneumonia. Linear left basilar opacity reflects atelectasis. IMPRESSION: No acute cardiopulmonary findings. ACT 112: Negative or not required by law. Electronically signed by: Power Tran M.D. 04/16/2022 5:[address] 04/16/22 18:20 CT head/brain wo con CLINICAL HISTORY: 81 years-old Male with freq falls. Acute head trauma status post fall TECHNIQUE: Multiple axial CT images of the head were obtained without contrast. A dose lowering technique was utilized adhering to the principles of ALARA. CT DOSE: 614.27 mGy.cm COMPARISON: Head CT 12/08/2017 FINDINGS: No acute intracranial hemorrhage, midline shift, intracranial mass, hydrocephalus, territorial ischemia or abnormal extra-axial collection. Age- related involutional changes. White matter hypodensities suggest chronic microvascular ischemic disease. Cerebral vascular calcifications. The calvarium is intact. Left greater than right mastoid effusions. Paranasal sinuses are clear. IMPRESSION: 1. No acute intracranial abnormality or calvarial fracture. 2. Bilateral mastoid effusions. ACT 112: Negative or not required by law. The above report was generated using voice recognition software. It may contain grammatical, syntax or spelling errors. Electronically signed by: Salty Rodrigues M.D. 04/16/2022 7:22 PM ECG Additional Comments: ecg sinus 93 w/ 1st degree avb. LBBB. LBBB is not new. Code Status & VTE Plan Code Status full VTE Prophylaxis Plan VTE Prophylaxis will be ordered: Yes Supervising Physician Co-Signing Physician Notes Attending addendum: I have physically seen this patient, have supervised the medical residents activities, and agree with the H&P unless as otherwise noted. Assessment and Plan: Generalized weakness- Temperature 99.9, generalized malaise and acute kidney injury follow urine culture sensitivity follow blood cultures and sensitivity question surgical site infection Will need PT/OT assessment prior to discharge Acute kidney injury- Creatinine 1.94 upon admission, with base 1.05 Mild dehydration Hold oral Lasix Repeat laboratories in a.m., if persistent, IV fluids at that time Wound drainage/sternal pain/status post CABG on 02-10-2022 at [facility]- Follow wound culture and sensitivity Daptomycin IV empirically Remaining orders and notations as noted Resident Activity Tracking Resident Involvement: Resident Care Provided Care Provided: Adult Hospital Medicine (1) Hypertension Hypertension type: primary hypertension Qualified Code(s): I10 - Essential (primary) hypertension
[2022-04-16] MEDS ORDERED: MIRTAZAPINE TAB 15 MG TAB PO STA (22:17)
[2022-04-16] MEDS ORDERED: RIVAROXABAN 15 MG TAB PO STA (22:22)
[2022-04-16] MEDS ORDERED: DAPTOmycin 275 MG in SYRINGE 0 ML IV STA (22:41)
[2022-04-17] MEDS ORDERED: NITROGLYCERIN SL 0.4 MG/TAB TAB SL PRN (00:23)
[2022-04-17] MEDS ORDERED: ONDANSETRON INJ 2 MG/ML 2 ML VIAL IV PRN (00:23)
[2022-04-17 08:43] LABS: Hemoglobin 12.5 g/dl (14.0-18.0); Mean Corpuscular Hemoglobin 29.4 pg (25.0-34.0); Mean Corpuscular Hgb Conc 32.9 g/dL (32.0-36.0); Mean Corpuscular Volume 89.4 fL (80.0-100.0); Mean Platelet Volume 8.8 fL (9.4-12.4); Platelet Count 281 K/uL (130-400); RDW Coefficient of Variation 14.2 % (11.5-14.5); RDW Standard Deviation 45.6 fL (36.4-46.3); Red Blood Count 4.25 M/uL (4.63-6.08); White Blood Count 7.81 K/ul (4.8-10.8)
[2022-04-17 09:16] LABS: Albumin Globulin Ratio 1.2 (0.9-2); Albumin Level 3.2 gm/dl (3.4-5.0); BUN Creatinine Ratio 11.2 (10-20); Bilirubin,Total 0.4 mg/dl (0.2-1.0); Calcium 8.2 mg/dl (8.5-10.1); Creatinine Clr Calc Pharmacy 34.8 ml/min; Est GFR (African American) 45.8 ml/min; Est GFR (Non-African American) 39.5 ml/min; Globulin 2.6 gm/dl (2.5-4.0); Total Protein 5.8 gm/dl (6.0-8.3)
[2022-04-17] MEDS: TAMSULOSIN HCL 0.4 MG CAP PO SCH (09:33)
[2022-04-17] MEDS: CLOPIDOGREL BISULFATE 75 MG TAB PO SCH (09:33)
[2022-04-17] MEDS: METOPROLOL SUCC 25MG EXT REL TAB PO SCH (09:33)
[2022-04-17] MEDS: ISOSORBIDE DINITRATE 5 MG TAB PO SCH ×3 (09:34→18:24)
[2022-04-17] MEDS: FINASTERIDE 5 MG TAB PO SCH (09:34)
[2022-04-17] MEDS ORDERED: POTASSIUM CHLORIDE 20 MEQ/15 ML UDC PO STA (09:47)
--- NOTE | 2022-04-17 11:28 | XCELERA ---
[id number]
--- NOTE | 2022-04-17 11:41 | Electrocardiogram Report ---
Test Reason : Blood Pressure : / mmHG Vent. Rate : 098 BPM Atrial Rate : 098 BPM P-R Int : 214 ms QRS Dur : 144 ms QT Int : 392 ms P-R-T Axes : 111 -38 129 degrees QTc Int : 500 ms Sinus rhythm with 1st degree A-V block Left axis deviation Left bundle branch block Abnormal ECG When compared with ECG of 30-MAR-2022 07:47, Premature ventricular complexes are no longer Present Premature atrial complexes are no longer Present Confirmed by Albert Fairchild ([id number]) on 04/17/2022 11:41:09 AM Referred By: Diallo Sharma Confirmed By:Diallo Fairchild
--- NOTE | 2022-04-17 11:44 | Electrocardiogram Report ---
Test Reason : Blood Pressure : / mmHG Vent. Rate : 093 BPM Atrial Rate : 093 BPM P-R Int : 226 ms QRS Dur : 148 ms QT Int : 408 ms P-R-T Axes : 082 -37 134 degrees QTc Int : 507 ms Sinus rhythm with 1st degree A-V block Left axis deviation Left bundle branch block Abnormal ECG When compared with ECG of 16-APR-2022 16:39, (unconfirmed) No significant change was found Confirmed by Albert Fairchild ([id number]) on 04/17/2022 11:44:34 AM Referred By: Diallo Sharma Confirmed By:Diallo Fairchild
--- NOTE | 2022-04-17 14:16 | Ultrasound Report ---
ABDOMINAL ULTRASOUND, RIGHT UPPER QUADRANT HISTORY: fever, abnormal LFT. COMPARISON: Abdomen and pelvis CT 02/18/2011. FINDINGS: Pancreas: Obscured by overlying bowel gas. Liver: Unremarkable. Gallbladder: No gallbladder wall thickening. No gallstones. CBD: Not well visualized but appears to measure 5 mm in diameter. Right kidney: No hydronephrosis. IMPRESSION: 1. Normal gallbladder. No gallstones. 2. Normal liver. 3. The pancreas was obscured by overlying bowel gas. ACT 112: Negative or not required by law. Electronically signed by: Ciaran Elena M.D. 04/17/2022 2:14 PM
--- NOTE | 2022-04-17 16:19 | Hospitalist Progress Note ---
Date of Service April 17, 2022 Assessment & Plan (1) Generalized weakness: Plan: Per daughter was very independent but now failure to thrive sort of picture; Exact etiology not known, depression in the differential but MRI brainrule out subtle CVA (2) Liver enzyme elevation: Plan: Unclear etiology but does not appear serious bines itself; ultrasound nonacute (3) Depressed mood: Plan: Could be contributing to lack of drive; continue mirtazapine; will consider psychiatry consult if willing (4) Pain of sternum: Plan: None describe; per daughter as outpatient was put on Bactrim because discharge emanated, none now recent question of infection, mildly elevated CRP; await procalcitonin; continue daptomycin for now (5) Acute renal insufficiency: Plan: Could be Bactrim inducedobserve for now; reasonable to hold diuretic (6) Elevated troponin I level: Plan: ; Nothing to suggest ACSobserve, recent bypass; at present cannot diagnose NSTEMI given type II (7) Status post coronary artery bypass graft: Plan: Continue Plavix, continue nitrates continue statin (8) History of atrial fibrillation: Plan: Sinus now, on Xarelto, observe (9) Chronic systolic heart failure: Plan: Appears well compensatedno change to current therapy; note diuretics on hold (10) Hypertension: Plan: Prior hydralazine on hold (11) Ambulatory dysfunction: Plan: OT/PT (12) Severe malnutrition: Plan: Nutrition consult Plan Mainly picture of failure to thrive Admission and Anticipated Discharge Date Admission Date: April 16, 2022 Physical Exam Physical Exam: Constitutional and general: No acute distress, looks biologic age Head and face: No puffiness, atraumatic Eyes: No scleral icterus, extraocular movements normal Neck: Supple, no JVD Musculoskeletal: No acute joint swelling, no bony abnormalities Skin/dermatologic/integument: No rash, no purpura Hematologic and lymphatic: pallor +, no petechia Gastrointestinal/abdomen: Nondistended, soft, nonacute Neurologic: Cranial nerves intact, nonfocal Psychiatry: Awake, alert, pleasant, communicative Cardiovascular: Heart rhythm regular, no rub, no murmur, no gallop Respiratory: Chest movements equal, no use of accessory muscles, no adventitious sounds Extremities: No edema, no cyanosis Sternal wound looks well-healed Results & Data Results & Data ([facility]) Vital Signs (Past 12 Hours) Vital Signs Temp Pulse Pulse Resp BP BP Pulse Ox 04/17/22 15:20 84 04/17/22 07:00 80 04/17/22 11:55 37.4 C 88 18 94/62 L 94 04/17/22 11:15 37.2 C 62 14 104/65 97 04/17/22 08:10 37.2 C 76 18 110/67 93 O2 Del Method 04/17/22 15:20 04/17/22 07:00 04/17/22 11:55 Room Air 04/17/22 11:15 Room Air 04/17/22 08:10 Room Air Laboratory Results Laboratory Results - last 24 hr 04/16/22 04/16/22 04/16/22 16:47 16:47 16:47 WBC 8.56 RBC 4.48 L Hgb 13.2 L Hct 39.4 L MCV 87.9 MCH 29.5 MCHC 33.5 RDW Std Deviation 45.1 RDW Coeff of Asiya 14.0 Plt Count 313 MPV 9.1 L Immature Gran % (Auto) 1.9 Neut % (Auto) 75.4 Lymph % (Auto) 9.3 [place] % (Auto) 7.8 Eos % (Auto) 5.1 Baso % (Auto) 0.5 Neut # (Auto) 6.45 Lymph # (Auto) 0.80 L [place] # (Auto) 0.67 Eos # (Auto) 0.44 Baso # (Auto) 0.04 Immature Gran # (Auto) 0.16 H Sodium 136 Potassium 3.9 Chloride 97 L Carbon Dioxide 30 Anion Gap 9 BUN 20 Creatinine 1.94 H Est Cr Clr Drug Dosing 28.9 Est GFR ( Amer) 36.6 Est GFR (Non-Af Amer) 31.5 BUN/Creatinine Ratio 10.3 Glucose 112 H Calcium 8.9 Total Bilirubin 0.4 AST 47 H ALT 77 H Alkaline Phosphatase 129 H Troponin I High Sens 68.8 H* D C-Reactive Protein Total Protein 6.7 Albumin 3.5 Globulin 3.2 Albumin/Globulin Ratio 1.1 Procalcitonin Urine Color Urine Appearance Urine pH Ur Specific [place] Urine Protein Urine Glucose (UA) Urine Ketones Urine Blood Urine Nitrite Urine Bilirubin Urine Urobilinogen Ur Leukocyte Esterase SARS-CoV-2, RNA, NAAT 04/16/22 04/16/22 04/16/22 19:25 20:15 20:15 WBC RBC Hgb Hct MCV MCH MCHC RDW Std Deviation RDW Coeff of Asiya Plt Count MPV Immature Gran % (Auto) Neut % (Auto) Lymph % (Auto) [place] % (Auto) Eos % (Auto) Baso % (Auto) Neut # (Auto) Lymph # (Auto) [place] # (Auto) Eos # (Auto) Baso # (Auto) Immature Gran # (Auto) Sodium Potassium Chloride Carbon Dioxide Anion Gap BUN Creatinine Est Cr Clr Drug Dosing Est GFR ( Amer) Est GFR (Non-Af Amer) BUN/Creatinine Ratio Glucose Calcium Total Bilirubin AST ALT Alkaline Phosphatase Troponin I High Sens 65.9 H* C-Reactive Protein Total Protein Albumin Globulin Albumin/Globulin Ratio Procalcitonin Urine Color Yellow Urine Appearance Clear Urine pH 7.5 Ur Specific [place] 1.008 Urine Protein Negative Urine Glucose (UA) Negative Urine Ketones Negative Urine Blood Negative Urine Nitrite Negative Urine Bilirubin Negative Urine Urobilinogen Negative Ur Leukocyte Esterase Negative SARS-CoV-2, RNA, NAAT NEGATIVE 04/17/22 04/17/22 04/17/22 08:11 08:11 08:11 WBC 7.81 RBC 4.25 L Hgb 12.5 L Hct 38.0 L MCV 89.4 MCH 29.4 MCHC 32.9 RDW Std Deviation 45.6 RDW Coeff of Asiya 14.2 Plt Count 281 MPV 8.8 L Immature Gran % (Auto) Neut % (Auto) Lymph % (Auto) [place] % (Auto) Eos % (Auto) Baso % (Auto) Neut # (Auto) Lymph # (Auto) [place] # (Auto) Eos # (Auto) Baso # (Auto) Immature Gran # (Auto) Sodium 137 Potassium 3.0 L D Chloride 98 Carbon Dioxide 30 Anion Gap 9 BUN 18 Creatinine 1.61 H D Est Cr Clr Drug Dosing 34.8 Est GFR ( Amer) 45.8 Est GFR (Non-Af Amer) 39.5 BUN/Creatinine Ratio 11.2 Glucose 117 H Calcium 8.2 L Total Bilirubin 0.4 AST 47 H ALT 68 H Alkaline Phosphatase 110 H Troponin I High Sens C-Reactive Protein 1.45 H Total Protein 5.8 L Albumin 3.2 L Globulin 2.6 Albumin/Globulin Ratio 1.2 Procalcitonin Urine Color Urine Appearance Urine pH Ur Specific [place] Urine Protein Urine Glucose (UA) Urine Ketones Urine Blood Urine Nitrite Urine Bilirubin Urine Urobilinogen Ur Leukocyte Esterase SARS-CoV-2, RNA, NAAT 04/17/22 15:04 WBC RBC Hgb Hct MCV MCH MCHC RDW Std Deviation RDW Coeff of Asiya Plt Count MPV Immature Gran % (Auto) Neut % (Auto) Lymph % (Auto) [place] % (Auto) Eos % (Auto) Baso % (Auto) Neut # (Auto) Lymph # (Auto) [place] # (Auto) Eos # (Auto) Baso # (Auto) Immature Gran # (Auto) Sodium Potassium Chloride Carbon Dioxide Anion Gap BUN Creatinine Est Cr Clr Drug Dosing Est GFR ( Amer) Est GFR (Non-Af Amer) BUN/Creatinine Ratio Glucose Calcium Total Bilirubin AST ALT Alkaline Phosphatase Troponin I High Sens C-Reactive Protein Total Protein Albumin Globulin Albumin/Globulin Ratio Procalcitonin 0.06 Urine Color Urine Appearance Urine pH Ur Specific [place] Urine Protein Urine Glucose (UA) Urine Ketones Urine Blood Urine Nitrite Urine Bilirubin Urine Urobilinogen Ur Leukocyte Esterase SARS-CoV-2, RNA, NAAT PG Care Time/CCT Total # of Minutes Spent Total Time Spent with Patient: Total time spent is greater than 50% in coordination of care (as documented) at patient's floor/unit and/or counseling patient: Coding Level of Care Code 75035 Subseq Hosp Care Lvl 2 Diagnoses Generalized weakness R53.1 Liver enzyme elevation R74.8 Depressed mood R45.89 Pain of sternum R07.89 Acute renal insufficiency N28.9 Elevated troponin I level R77.8 Status post coronary artery bypass graft Z95.1 History of atrial fibrillation Z86.79 Chronic systolic heart failure I50.22 Hypertension I10 Hypertension type: primary hypertension Ambulatory dysfunction R26.2 Severe malnutrition E43 (1) Hypertension Hypertension type: primary hypertension Qualified Code(s): I10 - Essential (primary) hypertension
[2022-04-17] MEDS: RIVAROXABAN 15 MG TAB PO SCH (17:53)
[2022-04-17] MEDS ORDERED: ATORVASTATIN 40 MG TAB PO SCH (21:00)
[2022-04-17] MEDS: MIRTAZAPINE TAB 15 MG TAB PO SCH (21:10)
--- NOTE | 2022-04-18 07:53 | Magnetic Resonance Report ---
MRI OF THE BRAIN WITHOUT IV CONTRAST CLINICAL HISTORY: Lethargy status post CABG. COMPARISON STUDY: CT of the brain dated 04/16/2022. TECHNIQUE: MRI of the brain was performed utilizing various T1 and T2-weighted sequences in the axial , sagittal, and coronal planes. IV contrast was not administered for this examination. FINDINGS: Brain parenchyma: There is age-related involutional change noting mild subcortical and periventricula r microangiopathic disease. There is no hemorrhage or mass effect. There is no restricted diffusion t o suggest acute ischemia. Cruz-white matter differentiation is preserved. No extra-axial fluid collec tion is seen. The cerebellar tonsils are normal in configuration. Ventricles, sulci, and cisterns: Prominent secondary to involutional change. Pituitary and sella: Unremarkable. Intracranial vasculature: Normal flow voids are maintained at the skull base. Orbits: The bony orbits are grossly intact. Orbital contents are normal in appearance. Sinuses and mastoids: There is trace mucosal thickening within the maxillary antra. The remaining par anasal sinuses are clear. There are large bilateral mastoid effusions. Calvarium: Unremarkable. Cervical cord: Partially visualized cervical spinal cord is normal in morphology and signal intensity . IMPRESSION: 1. No acute intracranial abnormality. 2. Large bilateral mastoid effusions. ACT 112: Negative or not required by law. Electronically signed by: Liborio Newton M.D. 04/18/2022 7:51 AM
[2022-04-18] MEDS: METOPROLOL SUCC 25MG EXT REL TAB PO SCH (08:04)
[2022-04-18] MEDS: TAMSULOSIN HCL 0.4 MG CAP PO SCH (08:04)
[2022-04-18] MEDS: FINASTERIDE 5 MG TAB PO SCH (08:04)
[2022-04-18] MEDS: CLOPIDOGREL BISULFATE 75 MG TAB PO SCH (08:04)
[2022-04-18 08:28] LABS: Basophils # (auto) 0.03 K/uL (0-0.2); Basophils % (auto) 0.3 %; Eosinophils # (auto) 0.54 K/uL (0-0.50); Eosinophils % (auto) 6.1 %; Hematocrit (blood only) 40.9 % (40.1-51.0); Hemoglobin 13.2 g/dl (14.0-18.0); Immature Granulocytes # (auto) 0.15 K/uL (0.00-0.02); Immature Granulocytes % (auto) 1.7 %; Lymphocytes # (auto) 2.89 K/uL (1.2-3.4); Lymphocytes % (auto) 32.8 %; Mean Corpuscular Hemoglobin 29.5 pg (25.0-34.0); Mean Corpuscular Hgb Conc 32.3 g/dL (32.0-36.0); Mean Corpuscular Volume 91.5 fL (80.0-100.0); Mean Platelet Volume 8.8 fL (9.4-12.4); Monocytes # (auto) 0.66 K/uL (0.24-0.82); Monocytes % (auto) 7.5 %; Neutrophils # (auto) 4.55 K/uL (1.4-6.5); Neutrophils % (auto) 51.6 %; Platelet Count 259 K/uL (130-400); RDW Coefficient of Variation 14.1 % (11.5-14.5); RDW Standard Deviation 47.3 fL (36.4-46.3); Red Blood Count 4.47 M/uL (4.63-6.08); White Blood Count 8.82 K/ul (4.8-10.8)
[2022-04-18 09:08] LABS: Albumin Globulin Ratio 1.1 (0.9-2); Albumin Level 3.2 gm/dl (3.4-5.0); BUN Creatinine Ratio 11.7 (10-20); Bilirubin,Total 0.5 mg/dl (0.2-1.0); C Reactive Protein 1.04 mg/dl (0-0.5); Calcium 8.7 mg/dl (8.5-10.1); Creatinine Clr Calc Pharmacy 38.4 ml/min; Est GFR (Non-African American) 44.8 ml/min; Globulin 2.9 gm/dl (2.5-4.0); Magnesium 1.8 mg/dl (1.7-2.4); Phosphorus 3.2 mg/dl (2.5-4.9); Potassium 3.6 mmol/L (3.5-5.1); Total Protein 6.1 gm/dl (6.0-8.3)
[2022-04-18] MEDS ORDERED: OPTIRAY 320 100ml IV ONE (10:32)
--- NOTE | 2022-04-18 10:54 | CT Scan Report ---
CT SCAN OF THE CHEST WITH IV CONTRAST CLINICAL HISTORY: Possible sternal infection. Recent CABG. COMPARISON STUDY: Chest x-ray dated 04/16/2022. TECHNIQUE: Following the IV administration of 94 cc of Optiray 320, CT scan of the thorax was perform ed from the thoracic inlet to the upper abdomen. Images are reviewed in the axial, sagittal, and otilia nal planes. IV contrast was administered without complication. A dose lowering technique was utilize d adhering to the principles of ALARA. The examination is degraded by motion artifact, as well as by streak artifact from the arms which could not be elevated above the chest. CT DOSE: 489.04 mGycm FINDINGS: Thyroid: Imaged portions of the thyroid gland are normal in size and attenuation. Thoracic aorta: There is atherosclerotic calcification of the thoracic aorta, which is normal in maria a anabela and demonstrates standard 3-vessel arch anatomy. No dissection is seen. Pulmonary vasculature: The pulmonary trunk is normal in caliber. There are no filling defects identif ied in the central pulmonary vessels to indicate pulmonary embolus. Note that this examination was no t protocoled for evaluation of the pulmonary arteries. Heart: The patient is status post midline sternotomy. The heart is enlarged and without pericardial e ffusion. The coronary arteries are densely calcified. Lungs and pleural spaces: Evaluation of the lung parenchyma is degraded by motion artifact. There are trace pleural effusions and dependent atelectasis. Scattered calcified granulomas are observed. No a irspace consolidation is seen typical for pneumonia. The trachea and central airways are clear. Mediastinum: There is no mediastinal lymphadenopathy. Margot: Clear. Axillae: There is no axillary lymphadenopathy. Upper abdomen: A small hiatal hernia is noted. Partially visualized upper abdominal viscera is otherw ise within normal limits. Skeletal structures: The skeletal structures are osteopenic. Degenerative change and hyperkyphosis is noted in the thoracic spine. No lytic or blastic bony lesions are seen. Midline sternotomy wires are noted. The sternal fragments have not united, likely due to recent surgery. No erosive change or bon y destruction is identified. Mild infiltration around the sternum likely represents expected postoper ative change. IMPRESSION: 1. Cardiomegaly and trace pleural effusions. 2. There is no airspace consolidation typical for pneumonia. 3. There is no CT evidence of sternal infection as clinically queried. See above. 4. Additional findings as above. ACT 112: Negative or not required by law. Electronically signed by: Liborio Newton M.D. 04/18/2022 10:52 AM
--- NOTE | 2022-04-18 12:39 | Gastrointestinal Consultation ---
Date of Consultation April 18, 2022 Assessment & Plan (1) Liver enzyme elevation: Patient has very mild LFT elevation at present and no evidence of obstructive biliary process at present. Potential etiologies could be viral given fatigue/chills/weakness he endorsed prior to arriving, possibly related to Bactr im given as an outpatient, possible developing ischemia/cardiac reasons, vs other. Liver imaging is reassuring that there is no acute abnormality of significance. He currently has no GI symptoms, so at this time, I would begin by obtaining an acute hepatitis panel, Tylenol level, PT/INR and would advise trending CMP daily. Supervising Physician Co-Signing Physician Notes Agree with CHANDA Blanchard as above Patient states he is feeling better than when he arrived Denies any fevers, chills, N/V/D or abdominal pain Gen: A+Ox3, cooperative, NAD Chest: CTA B/L CVS: RRR Abd: Soft, NT, ND, +BS Continue current therapy and supportive care Recommend advancing diet as tolerated Await further lab studies as ordered. History of Present Illness Reason for Consultation: Elevated LFTs Attending Physician: Casandra Gonzalez MD History of Present Illness Patient is an 81 yo male with HTN, HLD, prediabetes, and recent history of MO in January 2022 during which time he was transferred to [facility] for CABGx3, and then struggled with post operative A fib and CHF. He is anticoagulated on Xarelto therapy. He was brought to the hospital due to several days of weakness and fatigue accompanied by falls. There are some reports of chills and subjective fever at home. He recently was in the ED for chest pain and was started on Bactrim on 04/10/22 for possible wound infection of his sternotomy wound. He has troponin elevation of 68. GI has been consulted due to mild LFT elevation. Patient's AST is 84, ALT 104, Alk phos 116, and bilirubin is within normal limits. PT/INR was not obtained. US of the liver was unremarkable. He denies alcohol or Tylenol use. No pertinent personal or family history of liver disease. He is fatigued and participates in my evaluation, though he is extremely hard of hearing. He denies jaundice or abdominal pain. Allergies Allergy/AdvReac Type Severity Reaction Status Date / Time No Known Allergies Allergy Verified 04/16/22 19:07 Home Medications Medication Instructions Recorded Confirmed Type clopidogrel 75 mg tablet 75 mg PO QAM 02/21/22 04/16/22 History furosemide 80 mg tablet (Lasix) 80 mg PO BID 02/21/22 04/16/22 History hydralazine 10 mg tablet 10 mg PO TID 02/21/22 04/16/22 History isosorbide dinitrate 5 mg tablet 5 mg PO TID 02/21/22 04/16/22 History metoprolol succinate 25 mg 12.5 mg PO QAM 02/21/22 04/16/22 History tablet,extended release 24 hr potassium chloride 10 mEq 20 meq PO BID 02/21/22 04/16/22 History tablet,extended release mirtazapine 15 mg tablet (Remeron) 15 mg PO HS #30 tabs 04/01/22 04/16/22 Rx nitroglycerin 0.4 mg sublingual 0.4 mg sublingual Q5M PRN chest 04/09/22 04/16/22 Rx tablet (Nitrostat) pain #30 tabs sulfamethoxazole 800 1 tab PO BID 7 days #14 tabs 04/10/22 04/16/22 Rx mg-trimethoprim 160 mg tablet (Bactrim DS) atorvastatin 40 mg tablet 40 mg PO HS 04/16/22 04/16/22 History finasteride 5 mg tablet 5 mg PO QAM 04/16/22 04/16/22 History rivaroxaban 15 mg tablet (Xarelto) 15 mg PO QDD 04/16/22 04/16/22 History tamsulosin 0.4 mg capsule 0.4 mg PO QAM 04/16/22 04/16/22 History Patient History Medical History Benign prostatic hyperplasia Disequilibrium Hearing loss Hypertension Male erectile disorder of organic origin Mitral regurgitation Prediabetes Tinnitus Vitamin D deficiency Surgical History History of coronary artery bypass graft x 3 02/10/22 @ [facility] [place] Lilian Hooper History of transurethral prostatectomy (09/14/12) Family History Father Colorectal cancer Mother Cancer Brother Laryngeal cancer Sister Alzheimer disease Other No family history of adverse response to anesthesia No family history of bleeding disorder Denies family history of Ovarian cancer Prostate cancer Breast cancer Social History Smoking Status: Never smoker Age Started Using Tobacco: 15; Second Hand Exposure: No; Hx Alcohol Use: Yes Alcohol type: beer Alcohol Intake Frequency Comment: About 2 alcoholic beverages per day Hx Substance Use: No Preferred Language: Latvian Communication Ability: Effective Visual Impairment: No Limitations Hearing Ability: Use of Hearing Aid Billet Heater Required: No Beliefs That Will Affect Care: None marital status: / Current Living Situation: Alone current occupational status: retired How many Children do You have: 4 Feels Safe at Home: Yes caffeine: Yes Dental Care, Regularly: No Physical Activity Frequency: 1-2 Times per Week Seatbelt Use: always Assistive Devices: Cane and Walker Review of Systems Constitutional: no fever and no chills Ear, Nose, Mouth, Throat: hard of hearing Respiratory: no cough and no dyspnea Cardiovascular: no chest pain Gastrointestinal: no abdominal pain Musculoskeletal: no problem reported Neurologic: no problem reported Psychiatric: no problem reported Hematologic / Lymphatic: no unexplained weight loss Physical Exam Constitutional: well developed Respiratory: normal respiratory effort; no respiratory distress Cardiovascular: Rate/Rhythm: regular rate Gastrointestinal (Abdomen): normal bowel sounds, soft, nontender, no hepatosplenomegaly Musculoskeletal: Head/Neck/Chest: normocephalic Skin: no jaundice Psychiatric: Orientation: alert and oriented x 3 Results & Data ([facility]) Vital Signs (Past 12 Hours) Vital Signs Temp Pulse Pulse Resp BP BP Pulse Ox 04/18/22 11:30 36.9 C 74 20 96/60 L 98 04/18/22 09:43 77 04/18/22 06:47 36.6 C 74 18 116/71 96 04/18/22 06:20 81 04/18/22 03:00 37 C 84 20 96/59 L 94 O2 Del Method 04/18/22 11:30 04/18/22 09:43 04/18/22 06:47 Room Air 04/18/22 06:20 04/18/22 03:00 Room Air PG Care Time/CCT Total # of Minutes Spent Total Time Spent with Patient: Total time spent is greater than 50% in coordination of care (as documented) at patient's floor/unit and/or counseling patient: Coding Level of Care Code 01274 Initial Inpt Care Lvl 3 Diagnoses Liver enzyme elevation R74.8
[2022-04-18 13:36] LABS: INR 1.3 (0.9-1.1); Prothrombin Time 13.9 Seconds (9.0-12.0)
--- NOTE | 2022-04-18 14:08 | Psychiatric Consultation ---
Date of Consultation April 18, 2022 Impression / Recommendations Impression 81 yo male with multiple medical conditions, FTT, recently started Remeron (1) Depressed mood: (2) Severe malnutrition: (3) Ambulatory dysfunction: (4) Chronic systolic heart failure: (5) Liver enzyme elevation: Plan continue Remeron unchanged, higher doses are not necessarily more sedating but he is a fall risk, can contribute to QTc issues/arrhythmias with amiodarone, and only 3 weeks into trial. no indication for acute inpatient psychiatric hospitalization. Psych History Identifying Data 81 yo male from [place] admit medically on 04/16 s/p falls/weakness/malaise. Consult is for depression/FTT. Patient is very hard of hearing. Chief Complaint "I'm actually doing better I just want to go home." History of Present Illness Per admit note: 81 year old male w/ HTN, HLD, prediabetes, and acute WA seen at [facility] on 02/09/22, transferred to [facility] for CABGx3, complicated by post op afib and EF 20-25%. He is on Xarelto for parox afib. He presents today f or 3 days of generalized weakness + mild falls and 1 days of chills and temp of 99.9F this afternoon. He was admitted to [facility] briefly on 03/30/22 for what was thought to be noncardiac chest pain. He was started on Bactrim in outpatient on 04/10/22 setting for possible postop wound infection as the upper part of his sternotomy wound had been draining clear brown-green tinted fluid, noted by home health nursing. He denies significantly hitting his head during the falls. He does have intermittent discomfort at the upper part of the sternotomy site, though there has not been recent drainage. Since his CABG in January, his family has stayed with him from 12-24 hours a day. It appears that he was started on Remeron around 04/01/22 during his last hospitalization with perceived benefit and reports tolerating fine. He states that he doesn't eat well due to poor taste not necessarily lack of appetite. He denies depression currently but of course misses his and his heart problems remind him of her loss. Allergies Allergy/AdvReac Type Severity Reaction Status Date / Time No Known Allergies Allergy Verified 04/16/22 19:07 Home Medications Medication Instructions Recorded Confirmed Type clopidogrel 75 mg tablet 75 mg PO QAM 02/21/22 04/16/22 History furosemide 80 mg tablet (Lasix) 80 mg PO BID 02/21/22 04/16/22 History hydralazine 10 mg tablet 10 mg PO TID 02/21/22 04/16/22 History isosorbide dinitrate 5 mg tablet 5 mg PO TID 02/21/22 04/16/22 History metoprolol succinate 25 mg 12.5 mg PO QAM 02/21/22 04/16/22 History tablet,extended release 24 hr potassium chloride 10 mEq 20 meq PO BID 02/21/22 04/16/22 History tablet,extended release mirtazapine 15 mg tablet (Remeron) 15 mg PO HS #30 tabs 04/01/22 04/16/22 Rx nitroglycerin 0.4 mg sublingual 0.4 mg sublingual Q5M PRN chest 04/09/22 04/16/22 Rx tablet (Nitrostat) pain #30 tabs sulfamethoxazole 800 1 tab PO BID 7 days #14 tabs 04/10/22 04/16/22 Rx mg-trimethoprim 160 mg tablet (Bactrim DS) atorvastatin 40 mg tablet 40 mg PO HS 04/16/22 04/16/22 History finasteride 5 mg tablet 5 mg PO QAM 04/16/22 04/16/22 History rivaroxaban 15 mg tablet (Xarelto) 15 mg PO QDD 04/16/22 04/16/22 History tamsulosin 0.4 mg capsule 0.4 mg PO QAM 04/16/22 04/16/22 History Personal History Highest Grade Completed: High School Graduate Beliefs That Will Affect Care: None Patient History Medical History Benign prostatic hyperplasia Disequilibrium Hearing loss Hypertension Male erectile disorder of organic origin Mitral regurgitation Prediabetes Tinnitus Vitamin D deficiency Surgical History History of coronary artery bypass graft x 3 02/10/22 @ [facility] [place] Lilian Hooper History of transurethral prostatectomy (09/14/12) Family History Father Colorectal cancer Mother Cancer Brother Laryngeal cancer Sister Alzheimer disease Other No family history of adverse response to anesthesia No family history of bleeding disorder Denies family history of Ovarian cancer Prostate cancer Breast cancer Social History Smoking Status: Never smoker Age Started Using Tobacco: 15; Second Hand Exposure: No; Hx Alcohol Use: Yes Alcohol type: beer Alcohol Intake Frequency Comment: About 2 alcoholic beverages per day Hx Substance Use: No Preferred Language: Martiniquais Communication Ability: Effective Visual Impairment: No Limitations Hearing Ability: Use of Hearing Aid Log Inspector Required: No Beliefs That Will Affect Care: None marital status: / Current Living Situation: Alone current occupational status: retired How many Children do You have: 4 Feels Safe at Home: Yes caffeine: Yes Dental Care, Regularly: No Physical Activity Frequency: 1-2 Times per Week Seatbelt Use: always Assistive Devices: Cane and Walker Physical Exam Psychiatric: Orientation: alert Apperance: appropriately groomed Eye Contact: good eye contact Motor Behavior: no abnormal motor movements Speech: normal rate/rhythm/volume of speech Affect: euthymic affect Mood: no depressed mood Thought Process: + concrete thought process Thought Content: reality based without delusions Suicidal Thoughts: denies suicidal thoughts Homicidal Thoughts: denies homicidal thoughts Hallucinations: no auditory hallucinations and no visual hallucinations Cognition: attention grossly intact and language grossly intact Vital Signs (Past 24 Hours): Last Vital Signs Temp 36.9 C 04/18/22 11:30 Pulse 74 04/18/22 11:30 Resp 20 04/18/22 11:30 BP 96/60 L 04/18/22 11:30 Pulse Ox 98 04/18/22 11:30 O2 Del Method 04/18/22 06:47 Review of Systems All systems reviewed & are unremarkable except as noted in HPI & below Results & Data (PSY) Laboratory Results reviewed that has nl thyroid panel, vit D, B12, folate Diagnostic Findings QTc >500 on last EKG Medications Administered Atorvastatin Calcium (Atorvastatin 40 Mg Tab) 40 mg PO HS DEB Stop: 05/17/22 20:59 Last Admin: 04/17/22 21:10 Dose: 40 mg Documented By: [id number] Clopidogrel Bisulfate (Clopidogrel Bisulfate 75 Mg Tab) 75 mg PO QAM DEB Stop: 05/17/22 08:59 Last Admin: 04/18/22 08:04 Dose: 75 mg Documented By: [id number] Admin: 04/17/22 09:33 Dose: 75 mg Documented By: BARRY Finasteride (Finasteride 5 Mg Tab) 5 mg PO QAM [facility] Stop: 05/17/22 08:59 Last Admin: 04/18/22 08:04 Dose: 5 mg Documented By: [id number] Admin: 04/17/22 09:34 Dose: 5 mg Documented By: BARRY Metoprolol Succinate (Metoprolol Succ 25mg Ext Rel Tab) 12.5 mg PO [facility] Stop: 05/17/22 08:59 Last Admin: 04/18/22 08:04 Dose: 12.5 mg Documented By: [id number] Admin: 04/17/22 09:33 Dose: 12.5 mg Documented By: BARRY Mirtazapine (Mirtazapine Tab 15 Mg Tab) 15 mg PO HS [facility] Stop: 05/17/22 20:59 Last Admin: 04/17/22 21:10 Dose: 15 mg Documented By: [id number] Rivaroxaban (Rivaroxaban 15 Mg Tab) 15 mg PO QDD [facility] Stop: 05/17/22 16:29 Last Admin: 04/17/22 17:53 Dose: 15 mg Documented By: BARRY Tamsulosin HCl (Tamsulosin Hcl 0.4 Mg Cap) 0.4 mg PO [facility] Stop: 05/17/22 08:59 Last Admin: 04/18/22 08:04 Dose: 0.4 mg Documented By: [id number] Admin: 04/17/22 09:33 Dose: 0.4 mg Documented By: BARRY Coding Level of Care Code 08673 Inpt Consult Level 3 Diagnoses Depressed mood R45.89 Severe malnutrition E43 Ambulatory dysfunction R26.2 Chronic systolic heart failure I50.22 Liver enzyme elevation R74.8
--- NOTE | 2022-04-18 15:47 | Hospitalist Progress Note ---
Date of Service April 18, 2022 Assessment & Plan (1) Generalized weakness: Plan: Per daughter was very independent but now failure to thrive sort of picture; poor self drive Exact etiology not clear, psychiatry input obtained since family concerned about depressionnoted and appreciated (2) Liver enzyme elevation: Plan: Unclear etiologypersistent, somewhat worse, GI input; doubt any relation to p resenting symptomology but keep an open mind (3) Depressed mood: Plan: As above (4) Fever: Plan: Very low-grade; 37.7 last p.m.; however, given season and liver function abnormalities consider tickbornetesting and empiric Doxy (5) Pain of sternum: Plan: CT scan nothing to suggest sternal site infection; stop daptomycin; (6) Elevated troponin I level: Plan: ; Nothing to suggest ACSobserve, recent bypass; at present cannot diagnose NSTEMI given type II (7) Status post coronary artery bypass graft: Plan: Continue Plavix, given liver enzymes held statin though less likely to have any relation 6, given soft blood pressure held isosorbideno angina (8) History of atrial fibrillation: Plan: Sinus now, on Xarelto, observe (9) Chronic systolic heart failure: Plan: Appears well compensatedno change to current therapy; note diuretics on hold (10) Hypertension: Plan: If at all low, hydralazine on hold; stopped isosorbide (11) Ambulatory dysfunction: Plan: OT/PT (12) Severe malnutrition: Plan: Nutrition consult (13) LULI (acute kidney injury): Plan: Improving, observe without diuretics Admission and Anticipated Discharge Date Admission Date: April 17, 2022 Subjective Follow-up of presentation with weakness, low-grade fever, poor self driveno complaints as such Physical Exam Physical Exam: Constitutional and general: No acute distress, looks biologic age Head and face: No puffiness, atraumatic Eyes: No scleral icterus, extraocular movements normal Neck: Supple, no JVD Musculoskeletal: No acute joint swelling, no bony abnormalities Skin/dermatologic/integument: No rash, no purpura Hematologic and lymphatic: pallor +, no petechia Gastrointestinal/abdomen: Nondistended, soft, nonacute Neurologic: Cranial nerves intact, nonfocal Psychiatry: Awake, alert, pleasant, communicative Cardiovascular: Heart rhythm regular, no rub, no murmur, no gallop Respiratory: Chest movements equal, no use of accessory muscles, no adventitious sounds Extremities: No edema, no cyanosis Sternal wound looks well-healed Results & Data Results & Data ([facility]) Vital Signs (Past 12 Hours) Vital Signs Temp Pulse Pulse Resp BP BP Pulse Ox 04/18/22 15:06 77 04/18/22 15:06 36.5 C 76 20 93/59 L 96 04/18/22 11:30 36.9 C 74 20 96/60 L 98 04/18/22 09:43 77 04/18/22 06:47 36.6 C 74 18 116/71 96 04/18/22 06:20 81 O2 Del Method 04/18/22 15:06 04/18/22 15:06 04/18/22 11:30 04/18/22 09:43 04/18/22 06:47 Room Air 04/18/22 06:20 PG Care Time/CCT Total # of Minutes Spent Total Time Spent with Patient: Total time spent is greater than 50% in coordination of care (as documented) at patient's floor/unit and/or counseling patient: Coding Level of Care Code 02562 Subseq Hosp Care Lvl 2 Diagnoses Generalized weakness R53.1 Liver enzyme elevation R74.8 Depressed mood R45.89 Fever R50.9 Pain of sternum R07.89 Elevated troponin I level R77.8 Status post coronary artery bypass graft Z95.1 History of atrial fibrillation Z86.79 Chronic systolic heart failure I50.22 Hypertension I10 Hypertension type: primary hypertension Ambulatory dysfunction R26.2 Severe malnutrition E43 LULI (acute kidney injury) N17.9 (1) Hypertension Hypertension type: primary hypertension Qualified Code(s): I10 - Essential (primary) hypertension
[2022-04-18] MEDS: RIVAROXABAN 15 MG TAB PO SCH (16:32)
[2022-04-18 17:20] LABS: Lyme Ab IgG w/WB Rflx Negative (Negative); Lyme Ab IgM w/WB Rflx Negative (Negative)
[2022-04-18] MEDS ORDERED: DAPTOmycin 275 MG in SYRINGE 0 ML IV SCH (18:00)
[2022-04-18] MEDS: DOXYCYCLINE HYCLATE 100 MG CAP PO SCH (21:16)
[2022-04-18] MEDS: MIRTAZAPINE TAB 15 MG TAB PO SCH (21:17)
--- NOTE | 2022-04-19 00:55 | Billing Data ---
Date of Service April 19, 2022 Coding Level of Care Code 93497 Initial Inpt Care Lvl 3
[2022-04-19 07:46] LABS: Basophils # (auto) 0.02 K/uL (0-0.2); Basophils % (auto) 0.3 %; Eosinophils # (auto) 0.43 K/uL (0-0.50); Eosinophils % (auto) 6.2 %; Hematocrit (blood only) 32.4 % (40.1-51.0); Hemoglobin 10.9 g/dl (14.0-18.0); Immature Granulocytes # (auto) 0.07 K/uL (0.00-0.02); Lymphocytes % (auto) 40.1 %; Mean Corpuscular Hemoglobin 29.9 pg (25.0-34.0); Mean Corpuscular Hgb Conc 33.6 g/dL (32.0-36.0); Mean Platelet Volume 9.1 fL (9.4-12.4); Monocytes # (auto) 0.61 K/uL (0.24-0.82); Monocytes % (auto) 8.7 %; Neutrophils # (auto) 3.06 K/uL (1.4-6.5); Neutrophils % (auto) 43.7 %; Platelet Count 210 K/uL (130-400); RDW Coefficient of Variation 13.8 % (11.5-14.5); Red Blood Count 3.64 M/uL (4.63-6.08); White Blood Count 6.99 K/ul (4.8-10.8)
[2022-04-19] MEDS: FINASTERIDE 5 MG TAB PO SCH (08:49)
[2022-04-19] MEDS: TAMSULOSIN HCL 0.4 MG CAP PO SCH (08:49)
[2022-04-19] MEDS: DOXYCYCLINE HYCLATE 100 MG CAP PO SCH ×2 (08:49→22:34)
[2022-04-19] MEDS: CLOPIDOGREL BISULFATE 75 MG TAB PO SCH (08:50)
[2022-04-19] MEDS: METOPROLOL SUCC 25MG EXT REL TAB PO SCH (08:50)
[2022-04-19 09:01] LABS: Albumin Globulin Ratio 1.1 (0.9-2); Albumin Level 2.6 gm/dl (3.4-5.0); BUN Creatinine Ratio 12.4 (10-20); Bilirubin,Total 0.3 mg/dl (0.2-1.0); Calcium 7.9 mg/dl (8.5-10.1); Creatinine Clr Calc Pharmacy 46.3 ml/min; Est GFR (African American) 64.7 ml/min; Est GFR (Non-African American) 55.8 ml/min; Globulin 2.3 gm/dl (2.5-4.0); Magnesium 1.6 mg/dl (1.7-2.4); Phosphorus 2.8 mg/dl (2.5-4.9); Potassium 3.2 mmol/L (3.5-5.1); Total Protein 4.9 gm/dl (6.0-8.3)
--- NOTE | 2022-04-19 09:15 | Communication Note ---
Date of Service: April 19, 2022 LFTs improved today. Would continue to trend while hospitalized and would await hepatitis serologies. If they continue to decline and no further issues noted on serologies, there are no inpatient GI interventions necessary. He can follow-up as an outpatient.
[2022-04-19] MEDS ORDERED: POTASSIUM CHLORIDE 10 MEQ TABCR PO STA (09:21)
[2022-04-19] MEDS: MAGNESIUM SULFATE / D5W 1 GM/100 ML BAG IV SCH ×2 (10:42→12:45)
[2022-04-19 11:36] LABS: HBSAG NON-REACTIVE (NON-REACTIVE); Hepatitis A Antibody IgM NON-REACTIVE (NON-REACTIVE); Hepatitis B Core Antibody IgM NON-REACTIVE (NON-REACTIVE)
--- NOTE | 2022-04-19 12:48 | Communication Note ---
Date of Service: April 19, 2022 Was contacted regarding patient by hospitalist. GI has been following for elevated LFTs, however hospitalist notified that hemoglobin decreased from 13.2 to 10.7 overnight. No overt GI bleeding is noted at the present time. Due to patient's current medical comorbidities, the patient is a poor candidate for endoscopic evaluation. I would proceed conservatively with IV Protonix 40 mg BID and monitor for overt GI bleeding. Can re-evaluate the topic of endoscopy with anesthesia if he develops significant GI bleeding.
[2022-04-19] MEDS: PANTOprazole 40 MG in SYRINGE 0 ML IV SCH ×2 (14:00→22:35)
--- NOTE | 2022-04-19 18:25 | Hospitalist Progress Note ---
Date of Service April 19, 2022 Assessment & Plan (1) Acute anemia: Plan: Etiology not clear, GI blood loss unless proven otherwise; IV PPI, GI notified, observe stools, repeat hemoglobin (2) Generalized weakness: Plan: No clear single etiology, probably multifactorialdepressed mood, low-grade fever (again etiology not clear, presumptively being treated with Doxy for possible tickborne), possible overdiuresis (note LULI)OT/PT, observe, supportive care, treat treatable conditions (3) Acute renal insufficiency: Plan: - Improving, possible overdiuresis, Bactrim effect could have contributed (4) Wound drainage: Plan: CT negativeno clinical drainage; stopped daptomycin (5) Status post [facility]: [facility] and [facility] cardiology. He will need a local outpatient ambulance driver as well as cardiac rehab. Inpatient cardiology will not be consulted this admission. Recent CABG; at present given #1 Plavix on hold (6) Depressed mood: Plan: - Psychiatry input appreciatedno change in medical Rx (7) Ischemic cardiomyopathy: Plan: - EF 20-25% noted post cabg in January 2022-at present well compensated; note Lasix on hold, not on A2 blockade-, even off nitrates and hydralazine given soft blood pressure; at some point will need to slowly introduce (8) Liver enzyme elevation: Plan: - Today better, etiology not certain; possible tickborne given low-grade fever and on empiric doxy (9) Paroxysmal atrial fibrillation: Plan: - monitor on telemetry; given #1 Xarelto on hold, Plavix on hold (10) Falls: Plan: mild, no signifcant head trauma. Head CT neg. Home with home health per therapy (11) Elevated troponin: Plan: - has peaked; nothing to suggest ACS (12) Hypertension: Plan: - Agents on hold except metoprolol succinate; follow, at some point additional GDMT will have to be initiated (13) Benign prostatic hyperplasia: Plan: - chronic (14) Hyperlipidemia: Plan: - continue home statin (15) Fever: Plan: Low-grade fever prior to admission and 1 episode in-house, etiology not clear; empiric treatment for possible tickborne diseases given LFT abnormalitiesat present appears resolved, follow Plan Replace electrolytes as appropriate Admission and Anticipated Discharge Date Admission Date: April 17, 2022 Subjective Follow-up of presentation with weakness, low-grade fever, poor self driveno complaints as such; no bleeding reported Physical Exam Physical Exam: Constitutional and general: No acute distress, looks biologic age Head and face: No puffiness, atraumatic Eyes: No scleral icterus, extraocular movements normal Neck: Supple, no JVD Musculoskeletal: No acute joint swelling, no bony abnormalities Skin/dermatologic/integument: No rash, no purpura Hematologic and lymphatic: pallor +, no petechia Gastrointestinal/abdomen: Nondistended, soft, nonacute Neurologic: Cranial nerves intact, nonfocal Psychiatry: Awake, alert, pleasant, communicative Cardiovascular: Heart rhythm regular, no rub, no murmur, no gallop Respiratory: Chest movements equal, no use of accessory muscles, no adventitious sounds Extremities: No edema, no cyanosis Sternal wound looks well-healed Results & Data Results & Data ([facility]) Vital Signs (Past 12 Hours) Vital Signs Temp Pulse Pulse Resp BP Pulse Ox O2 Del Method 04/19/22 15:26 36.4 C L 70 20 103/65 97 Room Air 04/19/22 15:25 58 L 04/19/22 11:57 36.8 C 72 18 113/75 96 Room Air 04/19/22 08:03 36.6 C 63 18 95/54 L 96 Room Air 04/19/22 07:36 61 Laboratory Results Laboratory Results - last 24 hr 04/18/22 04/19/22 04/19/22 13:05 07:13 07:13 WBC 6.99 RBC 3.64 L Hgb 10.9 L Hct 32.4 L MCV 89.0 MCH 29.9 MCHC 33.6 RDW Std Deviation 45.0 RDW Coeff of Asiya 13.8 Plt Count 210 MPV 9.1 L Immature Gran % (Auto) 1.0 Neut % (Auto) 43.7 Lymph % (Auto) 40.1 [place] % (Auto) 8.7 Eos % (Auto) 6.2 Baso % (Auto) 0.3 Neut # (Auto) 3.06 Lymph # (Auto) 2.80 [place] # (Auto) 0.61 Eos # (Auto) 0.43 Baso # (Auto) 0.02 Immature Gran # (Auto) 0.07 H Sodium 134 L Potassium 3.2 L Chloride 100 Carbon Dioxide 30 Anion Gap 4 BUN 15 Creatinine 1.21 Est Cr Clr Drug Dosing 46.3 Est GFR ( Amer) 64.7 Est GFR (Non-Af Amer) 55.8 BUN/Creatinine Ratio 12.4 Glucose 89 Calcium 7.9 L Phosphorus 2.8 Magnesium 1.6 L Total Bilirubin 0.3 AST 63 H ALT 83 H Alkaline Phosphatase 89 Total Protein 4.9 L D Albumin 2.6 L Globulin 2.3 L Albumin/Globulin Ratio 1.1 Hepatitis A IgM Ab NON-REACTIVE Hep Bs Antigen NON-REACTIVE Hep Bs Ag Confirmation TNP Hep B Core IgM Ab NON-REACTIVE Hepatitis C Ab (EIA) NON-REACTIVE Hep C Ab Signal/Cutoff 0.01 04/19/22 10:10 WBC RBC Hgb 10.7 L Hct MCV MCH MCHC RDW Std Deviation RDW Coeff of Asiya Plt Count MPV Immature Gran % (Auto) Neut % (Auto) Lymph % (Auto) [place] % (Auto) Eos % (Auto) Baso % (Auto) Neut # (Auto) Lymph # (Auto) [place] # (Auto) Eos # (Auto) Baso # (Auto) Immature Gran # (Auto) Sodium Potassium Chloride Carbon Dioxide Anion Gap BUN Creatinine Est Cr Clr Drug Dosing Est GFR ( Amer) Est GFR (Non-Af Amer) BUN/Creatinine Ratio Glucose Calcium Phosphorus Magnesium Total Bilirubin AST ALT Alkaline Phosphatase Total Protein Albumin Globulin Albumin/Globulin Ratio Hepatitis A IgM Ab Hep Bs Antigen Hep Bs Ag Confirmation Hep B Core IgM Ab Hepatitis C Ab (EIA) Hep C Ab Signal/Cutoff PG Care Time/CCT Total # of Minutes Spent Total Time Spent with Patient: Total time spent is greater than 50% in coordination of care (as documented) at patient's floor/unit and/or counseling patient: Coding Level of Care Code 92258 Subseq Hosp Care Lvl 2 Diagnoses Acute anemia D64.9 Generalized weakness R53.1 Acute renal insufficiency N28.9 Wound drainage L24.A9 Status post coronary artery bypass graft Z95.1 Depressed mood R45.89 Ischemic cardiomyopathy I25.5 Liver enzyme elevation R74.8 Paroxysmal atrial fibrillation I48.0 Falls W19.XXXA Elevated troponin R77.8 Hypertension I10 Hypertension type: primary hypertension Benign prostatic hyperplasia N40.0 Hyperlipidemia E78.5 Fever R50.9 (1) Hypertension Hypertension type: primary hypertension Qualified Code(s): I10 - Essential ( primary) hypertension
[2022-04-19 20:11] LABS: Hematocrit (blood only) 33.7 % (40.1-51.0)
[2022-04-19] MEDS: MIRTAZAPINE TAB 15 MG TAB PO SCH (22:34)
[2022-04-20] MEDS: PANTOprazole 40 MG in SYRINGE 0 ML IV SCH ×2 (08:56→21:24)
[2022-04-20] MEDS: DOXYCYCLINE HYCLATE 100 MG CAP PO SCH (08:56)
[2022-04-20 08:57] LABS: Basophils # (auto) 0.02 K/uL (0-0.2); Basophils % (auto) 0.3 %; Eosinophils # (auto) 0.38 K/uL (0-0.50); Eosinophils % (auto) 5.9 %; Immature Granulocytes # (auto) 0.08 K/uL (0.00-0.02); Immature Granulocytes % (auto) 1.2 %; Lymphocytes # (auto) 2.29 K/uL (1.2-3.4); Lymphocytes % (auto) 35.6 %; Mean Corpuscular Hemoglobin 29.4 pg (25.0-34.0); Mean Corpuscular Hgb Conc 32.4 g/dL (32.0-36.0); Mean Corpuscular Volume 90.9 fL (80.0-100.0); Monocytes # (auto) 0.47 K/uL (0.24-0.82); Monocytes % (auto) 7.3 %; Neutrophils % (auto) 49.7 %; Platelet Count 197 K/uL (130-400); RDW Standard Deviation 46.4 fL (36.4-46.3); Red Blood Count 3.74 M/uL (4.63-6.08); White Blood Count 6.44 K/ul (4.8-10.8)
[2022-04-20] MEDS: METOPROLOL SUCC 25MG EXT REL TAB PO SCH (08:57)
[2022-04-20] MEDS: TAMSULOSIN HCL 0.4 MG CAP PO SCH (08:57)
[2022-04-20] MEDS: FINASTERIDE 5 MG TAB PO SCH (08:57)
[2022-04-20 09:21] LABS: Albumin Globulin Ratio 1.1 (0.9-2); Albumin Level 2.7 gm/dl (3.4-5.0); BUN Creatinine Ratio 11.8 (10-20); Bilirubin,Total 0.4 mg/dl (0.2-1.0); Calcium 7.7 mg/dl (8.5-10.1); Est GFR (African American) 79.5 ml/min; Est GFR (Non-African American) 68.6 ml/min; Globulin 2.4 gm/dl (2.5-4.0); Magnesium 1.9 mg/dl (1.7-2.4); Phosphorus 2.6 mg/dl (2.5-4.9); Potassium 3.4 mmol/L (3.5-5.1); Total Protein 5.1 gm/dl (6.0-8.3)
[2022-04-20] MEDS ORDERED: POTASSIUM CHLORIDE 20 MEQ/15 ML UDC PO STA (13:10)
[2022-04-20] MEDS: CLOPIDOGREL BISULFATE 75 MG TAB PO SCH (14:14)
--- NOTE | 2022-04-20 15:48 | Hospitalist Progress Note ---
Date of Service April 20, 2022 Assessment & Plan (1) Acute anemia: Plan: Etiology not clear, GI blood loss unless proven otherwise; IV PPI, GI wants to do conservative approach; hemoglobin stable; per discussion with GI resume Plavix, Xarelto and observe; if stable consider discharge in a.m.; discussed with family and they agree do not realize this (2) Generalized weakness: Plan: No clear single etiology, probably multifactorialdepressed mood, low-grade fever (again etiology not clear, presumptively being treated with Doxy for possible tickborne), possible overdiuresis (note LULI)OT/PT, observe, supportive care, treat treatable conditions (3) Acute renal insufficiency: Plan: - Improved, possible overdiuresis, Bactrim effect could have contributed (4) Wound drainage: Plan: CT negativeno clinical drainage; stopped daptomycin (5) Status post coronary artery bypass graft: Plan: - 02/10/22 [facility] Lilian He has followed both [facility]ology and [facility] cardiology. He will need a local outpatient parimutuel clerk as well as cardiac rehab. Inpatient cardiology will not be consulted this admission. Recent CABG; No anginafollow (6) Depressed mood: Plan: - Psychiatry input appreciatedno change in medical Rx (7) Ischemic cardiomyopathy: Plan: - EF 20-25% noted post cabg in January 2022-at present well compensated; note Lasix on hold, not on A2 blockade-, even off nitrates and hydralazine given soft blood pressure; at some point will need to slowly introduce (8) Liver enzyme elevation: Plan: - Today better, etiology not certain; possible tickborne given low-grade fever and on empiric doxy (9) Paroxysmal atrial fibrillation: Plan: - monitor on telemetry; given #1 Xarelto on hold, Plavix on hold (10) Falls: Plan: mild, no signifcant head trauma. Head CT neg. Home with home health per therapy (11) Elevated troponin: Plan: - has peaked; nothing to suggest ACS (12) Hypertension: Plan: - Agents on hold except metoprolol succinate; follow, at some point additional GDMT will have to be initiated (13) Benign prostatic hyperplasia: Plan: - chronic (14) Hyperlipidemia: Plan: - continue home statin (15) Fever: Plan: Low-grade fever prior to admission and 1 episode in-house, etiology not clear; empiric treatment for possible tickborne diseases given LFT abnormalitiesat present appears resolved, follow Plan Replace electrolytes as appropriate Admission and Anticipated Discharge Date Admission Date: April 17, 2022 Subjective Follow-up of original presentation with weakness, low-grade fever, poor self dr gonzalez; recent issue acute drop in hemoglobinno complaints as such; no bleeding reported Physical Exam Physical Exam: Constitutional and general: No acute distress, looks biologic age Head and face: No puffiness, atraumatic Eyes: No scleral icterus, extraocular movements normal Neck: Supple, no JVD Musculoskeletal: No acute joint swelling, no bony abnormalities Skin/dermatologic/integument: No rash, no purpura Hematologic and lymphatic: pallor +, no petechia Gastrointestinal/abdomen: Nondistended, soft, nonacute Neurologic: Cranial nerves intact, nonfocal Psychiatry: Awake, alert, pleasant, communicative Cardiovascular: Heart rhythm regular, no rub, no murmur, no gallop Respiratory: Chest movements equal, no use of accessory muscles, no adventitious sounds Extremities: No edema, no cyanosis Sternal wound looks well-healed Results & Data Results & Data ([facility]) Vital Signs (Past 12 Hours) Vital Signs Temp Pulse Pulse Resp BP Pulse Ox O2 Del Method 04/20/22 15:34 36.4 C L 77 18 113/68 97 Room Air 04/20/22 08:30 36.5 C 57 L 18 104/64 97 Room Air 04/20/22 07:16 59 L 04/20/22 04:00 36.6 C 63 18 106/59 L 96 Room Air Laboratory Results Laboratory Results - last 24 hr 04/19/22 04/20/22 04/20/22 19:51 08:46 08:46 WBC 6.44 RBC 3.74 L Hgb 11.0 L 11.0 L Hct 33.7 L 34.0 L MCV 90.9 MCH 29.4 MCHC 32.4 RDW Std Deviation 46.4 H RDW Coeff of Asiya 14.0 Plt Count 197 MPV 9.0 L Immature Gran % (Auto) 1.2 Neut % (Auto) 49.7 Lymph % (Auto) 35.6 [place] % (Auto) 7.3 Eos % (Auto) 5.9 Baso % (Auto) 0.3 Neut # (Auto) 3.20 Lymph # (Auto) 2.29 [place] # (Auto) 0.47 Eos # (Auto) 0.38 Baso # (Auto) 0.02 Immature Gran # (Auto) 0.08 H Sodium 134 L Potassium 3.4 L Chloride 101 Carbon Dioxide 29 Anion Gap 4 BUN 12 Creatinine 1.02 Est Cr Clr Drug Dosing 55.0 Est GFR ( Amer) 79.5 Est GFR (Non-Af Amer) 68.6 BUN/Creatinine Ratio 11.8 Glucose 101 H Calcium 7.7 L Phosphorus 2.6 Magnesium 1.9 Total Bilirubin 0.4 AST 49 H ALT 77 H Alkaline Phosphatase 104 Total Protein 5.1 L Albumin 2.7 L Globulin 2.4 L Albumin/Globulin Ratio 1.1 PG Care Time/CCT Total # of Minutes Spent Total Time Spent with Patient: Total time spent is greater than 50% in coordination of care (as documented) at patient's floor/unit and/or counseling patient: Coding Level of Care Code 04050 Subseq Hosp Care Lvl 2 Diagnoses Acute anemia D64.9 Generalized weakness R53.1 Acute renal insufficiency N28.9 Wound drainage L24.A9 Status post coronary artery bypass graft Z95.1 Depressed mood R45.89 Ischemic cardiomyopathy I25.5 Liver enzyme elevation R74.8 Paroxysmal atrial fibrillation I48.0 Falls W19.XXXA Elevated troponin R77.8 Hypertension I10 Hypertension type: primary hypertension Benign prostatic hyperplasia N40.0 Hyperlipidemia E78.5 Fever R50.9 (1) Hypertension Hypertension type: primary hypertension Qualified Code(s): I10 - Essential (primary) hypertension
[2022-04-20] MEDS: RIVAROXABAN 15 MG TAB PO SCH (16:14)
[2022-04-20] MEDS: MIRTAZAPINE TAB 15 MG TAB PO SCH (21:25)
[2022-04-21 06:28] LABS: Basophils # (auto) 0.03 K/uL (0-0.2); Basophils % (auto) 0.3 %; Eosinophils # (auto) 0.35 K/uL (0-0.50); Eosinophils % (auto) 3.7 %; Hematocrit (blood only) 34.4 % (40.1-51.0); Hemoglobin 11.4 g/dl (14.0-18.0); Immature Granulocytes # (auto) 0.11 K/uL (0.00-0.02); Immature Granulocytes % (auto) 1.2 %; Lymphocytes % (auto) 30.3 %; Mean Corpuscular Hemoglobin 29.8 pg (25.0-34.0); Mean Corpuscular Hgb Conc 33.1 g/dL (32.0-36.0); Mean Corpuscular Volume 89.8 fL (80.0-100.0); Mean Platelet Volume 9.2 fL (9.4-12.4); Monocytes # (auto) 0.66 K/uL (0.24-0.82); Monocytes % (auto) 6.9 %; Neutrophils # (auto) 5.51 K/uL (1.4-6.5); Neutrophils % (auto) 57.6 %; Platelet Count 210 K/uL (130-400); RDW Coefficient of Variation 13.9 % (11.5-14.5); RDW Standard Deviation 45.6 fL (36.4-46.3); Red Blood Count 3.83 M/uL (4.63-6.08); White Blood Count 9.56 K/ul (4.8-10.8)
[2022-04-21 06:52] LABS: Albumin Globulin Ratio 1.1 (0.9-2); Albumin Level 2.8 gm/dl (3.4-5.0); BUN Creatinine Ratio 8.2 (10-20); Bilirubin,Total 0.4 mg/dl (0.2-1.0); Calcium 7.8 mg/dl (8.5-10.1); Creatinine Clr Calc Pharmacy 57.2 ml/min; Est GFR (African American) 83.5 ml/min; Globulin 2.5 gm/dl (2.5-4.0); Magnesium 1.8 mg/dl (1.7-2.4); Phosphorus 2.2 mg/dl (2.5-4.9); Potassium 3.6 mmol/L (3.5-5.1); Total Protein 5.3 gm/dl (6.0-8.3)
[2022-04-21] MEDS: FINASTERIDE 5 MG TAB PO SCH (08:54)
[2022-04-21] MEDS: TAMSULOSIN HCL 0.4 MG CAP PO SCH (08:55)
[2022-04-21] MEDS: METOPROLOL SUCC 25MG EXT REL TAB PO SCH (08:55)
[2022-04-21] MEDS: PANTOprazole 40 MG in SYRINGE 0 ML IV SCH (08:55)
[2022-04-21] MEDS: CLOPIDOGREL BISULFATE 75 MG TAB PO SCH (08:55)
[2022-04-21] MEDS ORDERED: POT PHOSPHATE MONOBASIC W/ SOD TAB PO ONE (09:44)
--- NOTE | 2022-04-21 13:02 | Discharge Summary ---
Date of Service April 21, 2022 Admission HPI Per Admitting Provider 81 year old male w/ HTN, HLD, prediabetes, and acute WA seen at [facility] on 02/09/22, transferred to [facility] for CABGx3, complicated by post op afib and EF 20-25%. He is on Xarelto for parox afib. He presents today for 3 days of generalized weakness + mild falls and 1 days of chills and temp of 99.9F this afternoon. He was admitted to [facility] briefly on 03/30/22 for what was thought to be noncardiac chest pain. He was started on Bactrim in outpatient on 04/10/22 setting for possible postop wound infection as the upper part of his sternotomy wound had been draining clear brown-green tinted fluid, noted by home health nursing. He denies significantly hitting his head during the falls. He does have intermittent discomfort at the upper part of the sternotomy site, though there has not been recent drainage. Since his CABG in January, his family has stayed with him from 12-24 hours a day. Currently, he denies other symptoms such as shortness of breath, headache, or diarrhea. He has mild nausea. Hydralazine held since 03/30/22 pcp visit for low bp. Never smoker though had heavy 2nd hand smoke exposure. History obtained mostly from patient's 2 daughters. Patient was tired, but participatory in the conversation. ED course: NSS [address] was negative. LULI, Cr 1.05->1.94. Of note, he is on 80mg PO Lasix BID as outpatient. Principal Diagnosis Generalized weakness collaborative medicine Discharge Exam Constitutional and general: No acute distress, looks biologic age Head and face: No puffiness, atraumatic Eyes: No scleral icterus, extraocular movements normal Neck: Supple, no JVD Musculoskeletal: No acute joint swelling, no bony abnormalities Skin/dermatologic/integument: No rash, no purpura Hematologic and lymphatic: pallor +, no petechia Gastrointestinal/abdomen: Nondistended, soft, nonacute Neurologic: Cranial nerves intact, nonfocal Psychiatry: Awake, alert, pleasant, communicative Cardiovascular: Heart rhythm regular, no rub, no murmur, no gallop Respiratory: Chest movements equal, no use of accessory muscles, no adventitious sounds Extremities: No edema, no cyanosis Sternal wound looks well-healed Discharge Data Allergies Allergy/AdvReac Type Severity Reaction Status Date / Time No Known Allergies Allergy Verified 04/16/22 19:07 Consultations 04/16/22 20:24 ED Decision to Admit Stat 04/18/22 09:43 Consult Psychiatry Routine 04/18/22 11:11 Consult Gastroenterology Routine 04/21/22 12:58 Consult Cardiac Rehabilitation Routine Ordered Studies 04/16/22 18:20 CT head/brain wo con Stat 04/17/22 10:42 US abdomen limited Stat 04/17/22 15:19 MRI Brain [MR brain wo con] Routine 04/18/22 09:43 CT chest diagnostic w con Stat Hospital Course (1) Generalized weakness: No clear single etiology, probably multifactorialdepressed mood, low-grade fever (again etiology not clear, presumptively being treated with Doxy for possible tickborne), possible overdiuresis (LULI on admission that improved; overall improved and ready to go home with home health (2) Acute anemia: 2 days ago acute drop in hemoglobin with no known bleeding but no other clear cause; GI felt not a candidate for endoscopy given comorbidity, PPI and follow- up; subsequently hemoglobin has remained stable; antiplatelet agents and Xarelto which were on hold resumed yesterday and today hemoglobin stableoutpatient GI (3) Acute renal insufficiency: - Improved, possible overdiuresis (was on large doses of Lasix), Bactrim effect could have contributed but in-house has done very well with no diureticDC with no diuretics (4) Status post coronary artery bypass graft: - 02/10/22 [facility] He has followed both [facility] cardiology and [facility] cardiology. He will need a local outpatient official court interpreter as well as cardiac rehab. Inpatient car diology will not be consulted this admission. Recent CABG; No anginafollow Cardiac rehab referral sent (5) Depressed mood: - Seen by psychiatry, continue current Remeron (6) Ischemic cardiomyopathy: - EF 20-25% noted post cabg in January 2022-at present well compensated; note Lasix on hold, not on A2 blockade-, even off nitrates and hydralazine given tendency to soft blood pressure though asymptomatickeep on metoprolol succinate; outpatient cardiology, slowly introduce GDMT (7) Liver enzyme elevation: - More or less stableetiology not clear; remote chance of tickborne; seen by GI, outpatient follow-up today better, etiology not certain; possible tickborne given low-grade fever and on empiric doxy (8) Paroxysmal atrial fibrillation: - Resume Xarelto (9) Falls: mild, no signifcant head trauma. Head CT neg. Home with home health per therapy (10) Elevated troponin: - has peaked; nothing to suggest ACS (11) Hypertension: - Agents on hold except metoprolol succinate; follow, at some point additional GDMT will have to be initiated (12) Benign prostatic hyperplasia: - chronic (13) Hyperlipidemia: - continue home statin (14) Fever: Low-grade fever prior to admission and 1 episode in-house, etiology not clear; empiric treatment for possible tickborne diseases given LFT abnormalitiesat present appears resolved, follow; complete empiric Doxy Plan Follow electrolytes including magnesium and CBC as outpatient Total Time Total Time Spent Total Time Spent (In Minutes): 32 Discharge Plan Discharge Items Patient Disposition: Home - Home Health Services Reason For Visit: GENERAL WEAKNESS, POSS STERNOTOMY WOULD INFECTION Discharge Diagnosis: Generalized weakness Activity: As commented below Activity Comment: As tolerated Non-emergency contact: Primary Care Provider Call non-emergency contact if: your symptoms worsen Follow-up/Referrals: Dilan Monroe DO [Physician] - (Probable GI bleed with acute drop in hemoglobin in house, abnormal LFT, seen in housefollow-up; in about 2 to 4 weeks) Cody Delgado MD [Physician] - (Post CABG, chronic systolic heart failure, seen by your team) Albert Sharma MD [Primary Care Provider] - 04/30/22 2:00 pm Diet: Heart Healthy and Low Sodium (2gm) Addtl Attending Provider Instructions: Keep all healthcare follow-up appointments Pending Studies at Discharge: Yes Studies:: Studies for tickborne illness Stand-Alone Forms: My Hab Housing, Smoking Cessation Medications and DC Order Prescriptions: New doxycycline hyclate 100 mg capsule 100 mg PO BID 7 Days Qty: 14 0RF pantoprazole 40 mg tablet,delayed release (DR/EC) 40 mg PO DAILY Qty: 30 1RF Continued clopidogrel 75 mg tablet 75 mg PO QAM isosorbide dinitrate 5 mg tablet 5 mg PO TID Rx Instructions: TAKES QAM, 1400, & HS. allow nitrate-free interval of 12-14 hrs per 24-hr period metoprolol succinate 25 mg tablet extended release 24 hr 12.5 mg PO QAM nitroglycerin [Nitrostat] 0.4 mg tablet, sublingual 0.4 mg sublingual Q5M PRN (Reason: chest pain) Qty: 30 3RF Rx Instructions: do not exceed 3 doses per episode mirtazapine [Remeron] 15 mg tablet 15 mg PO HS Qty: 30 0RF tamsulosin 0.4 mg capsule 0.4 mg PO QAM finasteride 5 mg tablet 5 mg PO QAM Xarelto 15 mg tablet 15 mg PO QDD Rx Instructions: must administer with evening meal Discontinued furosemide [Lasix] 80 mg tablet 80 mg PO BID Rx Instructions: TAKES QAM & 1400. hydralazine 10 mg tablet 10 mg PO TID Hold Instructions: for low blood pressures Rx Instructions: ON HOLD potassium chloride 10 mEq tablet extended release 20 meq PO BID sulfamethoxazole-trimethoprim [Bactrim DS] 800-160 mg tablet 1 tab PO BID 7 Days Qty: 14 0RF Rx Instructions: STARTED 04/11/22 FOR 7 DAYS. atorvastatin 40 mg tablet 40 mg PO HS Discharge Orders: Discharge Order (Routine); Ordered 04/21/22 Ordered By: Casandra Gonzalez Admission Data Admit Date/Time: 04/17/22 15:12 Attending Provider: Casandra Gonzalez Admit Provider: Jax Salazar Primary Care Provider: Albert Sharma Other Providers: Bc Valero ; Faith Vickers ; Melissa Witt ; Marie Cortes ; Dilan Monroe Coding Level of Care Code D/C DAY MANAGEMENT >30 MINS Diagnoses Generalized weakness R53.1 Acute anemia D64.9 Acute renal insufficiency N28.9 Status post coronary artery bypass graft Z95.1 Depressed mood R45.89 Ischemic cardiomyopathy I25.5 Liver enzyme elevation R74.8 Paroxysmal atrial fibrillation I48.0 Falls [id number].XXXA Elevated troponin R77.8 Hypertension I10 Hypertension type: primary hypertension Benign prostatic hyperplasia N40.0 Hyperlipidemia E78.5 Fever R50.9
[2022-04-25 01:06] LABS: Ehrlichia chaff DNA Bld Negative (Negative)
[2022-04-28 17:52] LABS: Babesia microti DNA Not Detected (Not Detected); Q Fever IgG, Phase I NEGATIVE; Q Fever Phase I IgM Antibody NEGATIVE; Q Fever Phase II IgG Antibody NEGATIVE; Q Fever Phase II IgM Antibody NEGATIVE; R. typhi IgG Ab NOT DETECTED; R. typhi IgM Ab NOT DETECTED; RMSF IgG Ab NOT DETECTED; RMSF IgM Ab NOT DETECTED
== END 2022-04-21 17:07 | disposition home health service (06) | DRG 682 ==
LOC: ED 15:20 → 2W 15:20 → SUATTDRO 22:12 → 2W 04-17 00:07
DX: Z79.02 Long term (current) use of antithrombotics/antiplatelets; T50.2X5A Adverse effect of carbonic-anhydrase inhibitors, benzothiadiazides and other diuretics, initial encounter; Y92.009 Unspecified place in unspecified non-institutional (private) residence as the place of occurrence of the external cause; R94.5 Abnormal results of liver function studies; E86.0 Dehydration; N40.0 Benign prostatic hyperplasia without lower urinary tract symptoms; D64.9 Anemia, unspecified; I25.5 Ischemic cardiomyopathy; N17.9 Acute kidney failure, unspecified; I48.0 Paroxysmal atrial fibrillation; A77.40 Ehrlichiosis, unspecified; R62.7 Adult failure to thrive; I34.0 Nonrheumatic mitral (valve) insufficiency; R29.6 Repeated falls; E78.5 Hyperlipidemia, unspecified; Z95.1 Presence of aortocoronary bypass graft; H90.3 Sensorineural hearing loss, bilateral; R73.03 Prediabetes; R53.1 Weakness; E43 Unspecified severe protein-calorie malnutrition; I25.2 Old myocardial infarction; R50.9 Fever, unspecified; I50.22 Chronic systolic (congestive) heart failure; T37.0X5A Adverse effect of sulfonamides, initial encounter; F32.A Depression, unspecified; I11.0 Hypertensive heart disease with heart failure

== ENCOUNTER 2022-08-10 16:43 | Inpatient (IN) ==
[2022-08-10 17:26] LABS: Basophils # (auto) 0.02 K/uL (0-0.2); Basophils % (auto) 0.2 %; Eosinophils # (auto) 0.35 K/uL (0-0.50); Eosinophils % (auto) 3.8 %; Hematocrit (blood only) 33.7 % (40.1-51.0); Hemoglobin 11.3 g/dl (14.0-18.0); Immature Granulocytes # (auto) 0.05 K/uL (0.00-0.02); Immature Granulocytes % (auto) 0.5 %; Lymphocytes # (auto) 1.63 K/uL (1.2-3.4); Lymphocytes % (auto) 17.6 %; Mean Corpuscular Hemoglobin 30.9 pg (25.0-34.0); Mean Corpuscular Hgb Conc 33.5 g/dL (32.0-36.0); Mean Corpuscular Volume 92.1 fL (80.0-100.0); Mean Platelet Volume 9.6 fL (9.4-12.4); Monocytes # (auto) 1.05 K/uL (0.24-0.82); Monocytes % (auto) 11.3 %; Neutrophils # (auto) 6.18 K/uL (1.4-6.5); Neutrophils % (auto) 66.6 %; Platelet Count 229 K/uL (130-400); RDW Coefficient of Variation 14.2 % (11.5-14.5); RDW Standard Deviation 48.1 fL (36.4-46.3); Red Blood Count 3.66 M/uL (4.63-6.08); White Blood Count 9.28 K/ul (4.8-10.8)
[2022-08-10] MEDS ORDERED: XYLOCAINE 1%/SOD BICARB 20 ML VIAL INFIL ONE (17:30)
[2022-08-10 17:45] LABS: BUN Creatinine Ratio 13.2 (10-20); Calcium 8.5 mg/dl (8.5-10.1); Creatinine Clr Calc Pharmacy 48.6 ml/min; Est GFR (African American) 64.2 ml/min; Est GFR (Non-African American) 55.4 ml/min; Potassium 3.9 mmol/L (3.5-5.1)
[2022-08-10] MEDS ORDERED: VANCOMYCIN HCL 1,750 MG in SODIUM CHLORIDE 0.9% 500 ML IV ONE (18:10)
[2022-08-10] MEDS ORDERED: VANCOMYCIN CONSULT ACTIVE PRN ×2 (18:10→22:06)
[2022-08-10] MEDS ORDERED: CEFEPIME 2,000 MG/20 ML VIAL IV STA (18:10)
--- NOTE | 2022-08-10 18:22 | Emergency Department Note ---
Impression & Plan Cellulitis, Infected postoperative seroma, Cough, Wheezing ED Provider Note INFORMANT: Patient ED PROVIDER(S): Emerson Anders MD CHIEF COMPLAINT: Skin problem PLAN: Disposition: Admitted Condition: Good Outpatient prescription management: none Referral: None MEDICAL DECISION MAKING: Patient presented to the emergency department because of worsening leg infection after drainage. He has an obvious cellulitis with tenderness extending up towards the groin. There was a large area of induration. Verbal consent obtained and he underwent the incision and drainage after ultrasound guidance. I estimate that he had about 25 cc of fluid in the collection. Patient was started on broad-spectrum antibiotics with cefepime and vancomycin. He was also noting some cold symptoms. Bio fire testing was negative. The patient had an unremarkable chest x-ray. He was treated with a DuoNeb. Further management in the hospital will be necessary. [facility] Patient was evaluated in the ER admitted for further management. Triage Nursing notes reviewed and agree them. Vital Signs: reviewed and remarkable for no significant abnormalities Differential diagnosis: Cellulitis, abscess, MRSA infection, DVT, necrotizing fasciitis, dermatitis, drug eruption, allergic reaction, URI, RAD, pneumonia, as well as other pathologies. Diagnostics interpreted by me: ECG: none Cardiac Monitoring: Cardiac monitoring ordered by me: The patient was placed on continuous cardiac monitoring and observed. It revealed a normal sinus rhythm at 85 beats per minute without ectopy or evidence of dysrhythmia. Imaging studies: Chest x-ray as noted below.. Insert refer HPI: The patient is a 82 year old male who presents to the Emergency Room with complaints of leg infection. This started early this week and is worsening despite drainage and antibiotics started here 08/08. Patient given IM rocephin and oral doxy. Pharmacy closed yesterday so he started doxy today x 1.. The patient also notes the following associated symptoms, pain radiating to the g roin, flu like symptoms, cough, and wheezing. The patient has found no relieving factors. Current pain is rated as 6/10. Hx of seroma there from CABG in january of this year. Pt denies LOC, headache, fevers, chills, diaphoresis, visual changes, neck pain, chest pain, nausea, vomiting, abdominal pain, back pain, urinary symptoms, numbness, weakness, lymphadenopathy, or other complaints. ROS: See above HPI for pertinent positives & negatives. A total of 10 systems reviewed and were otherwise negative. PAST MEDICAL HISTORY:See Below , CAD PAST SURGICAL HISTORY:See Below, CABG FAMILY HISTORY:See Below SOCIAL HISTORY:See Below, Retired HOME MEDICATIONS:See Below ALLERGIES:See Below VITALS:See Below PHYSICAL EXAMINATION: GENERAL: Awake, alert, uncomfortable-appearing, in no distress HENT: Normocephalic, atraumatic. Oropharynx unremarkable. EYES: Normal conjunctiva. Sclera non-icteric. NECK: Inspection normal. Non-tender. Supple. No nuchal rigidity. FROM. No masses. RESPIRATORY: Scattered wheezes. No rales. Normal respiratory effort. CARDIAC: Normal rate. Normal rhythm. No murmurs. No rubs. Extremities warm and well perfused. Pulses equal. No JVD. GI: Soft, non-distended. No tenderness to palpation. No rebound or guarding. No masses. RECTAL: Deferred. MUSCULOSKELETAL: Atraumatic. Chest examination reveals no tenderness. The back i s symmetrical on inspection without obvious abnormality. There is no CVA tenderness to palpation. No joint edema. LOWER EXTREMITIES: Calves are equal size bilaterally and non-tender. No edema. No discoloration. NEURO: Normal sensorium. No sensory or motor deficits noted. SKIN: Left leg induration, redness, swelling and TTP over medial inferior thigh. Associated cellulitis extending toward groin. Induration measures 13x15 cm. No other rash or jaundice noted. Limited Point of Care Abdominal Ultrasound performed by me: Indication: Abscess suspected Findings: Limited abdominal ultrasonography of the leg revealed a 4.2 x 6 cm fluid collection that was loculated. No vascularity on Doppler.. Impression: Large fluid collection in the area of question concerning for abscess/seroma INCISION & DRAINAGE: Indication: Abscess. Verbal consent was obtained after the risks and benefits were explained, including but not limited to bleeding, scarring, infection, pain, and bone/joint/nerve damage. At this time, the risks of the procedure are less than the risks of NOT performing the procedure. A time out was taken and the correct patient and site identified. The skin was prepped with betadine and a sterile f ield set. The wound was anesthetized with 3 ml of 1% lidocaine without epinephrine. The abscess cavity was entered with a number 11 blade and copious serosanguineous and some purulent material expressed. Copious irrigation was performed using saline. The wound was explored for foreign bodies and none found. Debridement was not performed. Packing placed and a sterile dressing applied. Detailed wound care instructions and signs and symptoms of worsening infection reviewed with the patient/family. No complications and the patient tolerated the procedure well. Emerson Anders MD Past Med/Surg History Medical History Ambulatory dysfunction Benign prostatic hyperplasia Depressed mood Disequilibrium Elevated troponin I level Falls Fever Frequent falls Hearing loss Hypertension Lab test negative for COVID-19 virus Male erectile disorder of organic origin Mitral regurgitation Prediabetes Tinnitus Vitamin D deficiency Surgical History History of coronary artery bypass graft x 3 02/10/22 @ [facility] [place] Lilian Hooper History of transurethral prostatectomy (09/14/12) Family History Father Colorectal cancer Mother Cancer Brother Laryngeal cancer Sister Alzheimer disease Other No family history of adverse response to anesthesia No family history of bleeding disorder Denies family history of Ovarian cancer Prostate cancer Breast cancer Social History Smoking Status: Unknown if ever smoked Age Started Using Tobacco: 15; Second Hand Exposure: No; Hx Alcohol Use: Yes Alcohol type: beer Alcohol Intake Frequency Comment: About 2 alcoholic beverages per day Hx Substance Use: No Preferred Language: Cymro Communication Ability: Effective Visual Impairment: No Limitations Hearing Ability: Use of Hearing Aid Casting Chipper Required: No Beliefs That Will Affect Care: None marital status: / Current Living Situation: Alone current occupational status: retired How many Children do You have: 4 Feels Safe at Home: Yes caffeine: Yes Dental Care, Regularly: No Physical Activity Frequency: 1-2 Times per Week Seatbelt Use: always Assistive Devices: Cane and Walker Allergies Allergies Allergy/AdvReac Type Severity Reaction Status Date / Time Sulfa (Sulfonamide AdvReac Intermediate Nausea, Verified 08/10/22 19:55 Antibiotics) Weakness, Dizziness Home Meds Home Medications Medication Instructions Recorded Confirmed tamsulosin 0.4 mg capsule 0.4 mg PO QAM 04/16/22 08/10/22 furosemide 40 mg tablet 40 mg PO Q OTHER DAY 07/02/22 08/10/22 potassium chloride 10 mEq 10 meq PO Q OTHER DAY 07/02/22 08/10/22 tablet,extended release sacubitril 24 mg-valsartan 26 mg 1 tab PO BID 07/02/22 08/10/22 tablet (Entresto) Previous Rx's Medication Instructions Recorded nitroglycerin 0.4 mg sublingual 0.4 mg sublingual Q5M PRN chest 04/09/22 tablet (Nitrostat) pain #30 tabs mirtazapine 15 mg tablet (Remeron) 15 mg PO HS #90 tabs 04/30/22 rivaroxaban 15 mg tablet (Xarelto) 15 mg PO QDD #90 tabs 04/30/22 clopidogrel 75 mg tablet 75 mg PO QAM #90 tabs 05/22/22 metoprolol succinate 25 mg 25 mg PO QAM #90 tabs 05/22/22 tablet,extended release 24 hr isosorbide dinitrate 5 mg tablet 5 mg PO TID #270 tabs 05/24/22 spironolactone 25 mg tablet 25 mg PO DAILY #30 tabs 07/03/22 finasteride 5 mg tablet 5 mg PO QAM #90 tabs 07/13/22 pantoprazole 40 mg tablet,delayed 40 mg PO DAILY #90 tabs 07/13/22 release doxycycline hyclate 100 mg capsule 100 mg PO BID 10 days #20 caps 08/09/22 Results & Data (ED) Vital Signs Vital Signs - 24 hr 08/10/22 16:46 08/10/22 17:49 Temperature 36.8 C Temperature Source Temporal Artery Scan Pulse Rate 67 Pulse Rate [Right Finger] 88 Respiratory Rate 18 Respiratory Effort / Characteristics Non-Labored Spontaneous Respiratory Depth Normal Respiratory Pattern Regular Blood Pressure 137/68 Blood Pressure [Right Arm] 120/54 L Blood Pressure Mean 91 Blood Pressure Mean [Right Arm] 76 Blood Pressure Position Sitting Pulse Oximetry 95 98 Oxygen Delivery Method Room Air Room Air Sepsis Recent Fever Within 48 Hours No Sepsis New/Unexplained Change in Mental Status No Sepsis Action Taken by Nursing No Action Required Laboratory Data Result diagrams: 08/10/22 17:14 08/10/22 17:14 Lab Results 08/10/22 08/10/22 08/10/22 Range/Units 17:14 17:14 18:20 WBC 9.28 (4.8-10.8) K/ul RBC 3.66 L (4.63-6.08) M/uL Hgb 11.3 L (14.0-18.0) g/dl Hct 33.7 L (40.1-51.0) % MCV 92.1 (80.0-100.0) fL MCH 30.9 (25.0-34.0) pg MCHC 33.5 (32.0-36.0) g/dL RDW Std Deviation 48.1 H (36.4-46.3) fL RDW Coeff of Asiya 14.2 (11.5-14.5) % Plt Count 229 (130-400) K/uL MPV 9.6 (9.4-12.4) fL Immature Gran % (Auto) 0.5 % Neut % (Auto) 66.6 % Lymph % (Auto) 17.6 % [place] % (Auto) 11.3 % Eos % (Auto) 3.8 % Baso % (Auto) 0.2 % Neut # (Auto) 6.18 (1.4-6.5) K/uL Lymph # (Auto) 1.63 (1.2-3.4) K/uL [place] # (Auto) 1.05 H (0.24-0.82) K/uL Eos # (Auto) 0.35 (0-0.50) K/uL Baso # (Auto) 0.02 (0-0.2) K/uL Immature Gran # (Auto) 0.05 H (0.00-0.02) K/uL Sodium 136 (136-145) mmol/L Potassium 3.9 (3.5-5.1) mmol/L Chloride 102 (98-107) mmol/L Carbon Dioxide 28 (21-32) mmol/L Anion Gap 6 (3-11) BUN 16 (6-23) mg/dl Creatinine 1.21 (0.6-1.4) mg/dl Est Cr Clr Drug Dosing 48.6 ml/min Est GFR ( Amer) 64.2 ml/min Est GFR (Non-Af Amer) 55.4 ml/min BUN/Creatinine Ratio 13.2 (10-20) Glucose 107 H (70-99(Fasting)) mg/dl Lactate 1.4 (0.4-2.0) mmol/L Calcium 8.5 (8.5-10.1) mg/dl Adenovirus (PCR) (NotDetected) B. pertussis DNA (PCR) (NotDetected) B.parapertussis DNA PCR (NotDetected) C. pneumoniae DNA (PCR) (NotDetected) Coronavirus OC43 (PCR) (NotDetected) Coronavirus HKU1 (PCR) (NotDetected) Coronavirus 229E (PCR) (NotDetected) SARS-CoV-2 (PCR) (NotDetected) Coronavirus NL63 (PCR) (NotDetected) Human Metapneumovir PCR (NotDetected) Influenza Type A (PCR) (NotDetected) Influenza Type B (PCR) (NotDetected) M. pneumoniae (PCR) (NotDetected) Parainfluenza 1 (PCR) (NotDetected) Parainfluenza 2 (PCR) (NotDetected) Parainfluenza 3 (PCR) (NotDetected) Parainfluenza 4 (PCR) (NotDetected) RSV (PCR) (NotDetected) Entero/Rhino (PCR) (NotDetected) 08/10/22 Range/Units 18:29 WBC (4.8-10.8) K/ul RBC (4.63-6.08) M/uL Hgb (14.0-18.0) g/dl Hct (40.1-51.0) % MCV (80.0-100.0) fL MCH (25.0-34.0) pg MCHC (32.0-36.0) g/dL RDW Std Deviation (36.4-46.3) fL RDW Coeff of Asiya (11.5-14.5) % Plt Count (130-400) K/uL MPV (9.4-12.4) fL Immature Gran % (Auto) % Neut % (Auto) % Lymph % (Auto) % [place] % (Auto) % Eos % (Auto) % Baso % (Auto) % Neut # (Auto) (1.4-6.5) K/uL Lymph # (Auto) (1.2-3.4) K/uL [place] # (Auto) (0.24-0.82) K/uL Eos # (Auto) (0-0.50) K/uL Baso # (Auto) (0-0.2) K/uL Immature Gran # (Auto) (0.00-0.02) K/uL Sodium (136-145) mmol/L Potassium (3.5-5.1) mmol/L Chloride (98-107) mmol/L Carbon Dioxide (21-32) mmol/L Anion Gap (3-11) BUN (6-23) mg/dl Creatinine (0.6-1.4) mg/dl Est Cr Clr Drug Dosing ml/min Est GFR ( Amer) ml/min Est GFR (Non-Af Amer) ml/min BUN/Creatinine Ratio (10-20) Glucose (70-99(Fasting)) mg/dl Lactate (0.4-2.0) mmol/L Calcium (8.5-10.1) mg/dl Adenovirus (PCR) Not Detected (NotDetected) B. pertussis DNA (PCR) Not Detected (NotDetected) B.parapertussis DNA PCR Not Detected (NotDetected) C. pneumoniae DNA (PCR) Not Detected (NotDetected) Coronavirus OC43 (PCR) Not Detected (NotDetected) Coronavirus HKU1 (PCR) Not Detected (NotDetected) Coronavirus 229E (PCR) Not Detected (NotDetected) SARS-CoV-2 (PCR) Not Detected (NotDetected) Coronavirus NL63 (PCR) Not Detected (NotDetected) Human Metapneumovir PCR Not Detected (NotDetected) Influenza Type A (PCR) Not Detected (NotDetected) Influenza Type B (PCR) Not Detected (NotDetected) M. pneumoniae (PCR) Not Detected (NotDetected) Parainfluenza 1 (PCR) Not Detected (NotDetected) Parainfluenza 2 (PCR) Not Detected (NotDetected) Parainfluenza 3 (PCR) Not Detected (NotDetected) Parainfluenza 4 (PCR) Not Detected (NotDetected) RSV (PCR) Not Detected (NotDetected) Entero/Rhino (PCR) Not Detected (NotDetected) Administered Medications Discontinued Medications Albuterol (Albut/Ipratrop 3mg/0.5mg Neb 3 Ml Vial) 3 ml NEB NOW STA; Protocol Stop: 08/10/22 18:37 Last Admin: 08/10/22 18:44 Dose: 3 ml Documented By: CELE Vancomycin HCl 1,750 mg/ (Sodium Chloride) 535 mls @ 200 mls/hr IV NOW ONE Stop: 08/10/22 20:50 Last Infusion: 08/10/22 21:26 Dose: 0 mls/hr Documented By: Admin: 08/10/22 18:44 Dose: 200 mls/hr Documented By: CELE Cefepime HCl (Maxipime) 2,000 mg in 20 mls @ 5 mls/min IV NOW STA; Protocol Stop: 08/10/22 18:13 Last Admin: 08/10/22 18:44 Dose: 5 mls/min Documented By: CELE Lidocaine HCl (Xylocaine 1%/Sod Bicarb 20 Ml Vial) 20 ml INFIL NOW ONE Stop: 08/10/22 17:31 Last Admin: 08/10/22 18:40 Dose: 20 ml Documented By: CELE Imaging Data Radiologist's Impression: Chest X-Ray 08/10/22 17:29 XR chest 1V portable HISTORY: 82 years-old Male cough, flu like symptoms acute cough COMPARISON: CTA chest 08/02/2022 TECHNIQUE: Portable AP view of the chest FINDINGS: Cardiac silhouette is enlarged. Prior median sternotomy and CABG. Subsegmental bibasilar atelectasis with unchanged blunting of the left costophrenic angle. No pneumothorax, large pleural effusion or overt pulmonary edema. Degenerative changes of the shoulders and spine. IMPRESSION: Cardiomegaly with mild bibasilar atelectasis. ACT 112: Negative or not required by law. The above report was generated using voice recognition software. It may contain grammatical, syntax or spelling errors. Electronically signed by: Salty Rodrigues M.D. 08/10/2022 7:29 PM Discharge Plan Visit Data Chief Complaint: Skin Problem Stated Complaint: ABSCESS ON LEFT LEG, HERE WED SYMPTOMS WORSENING ED Provider: Emerson Anders Discharge Problem: Cellulitis, Infected postoperative seroma, Cough, Wheezing Patient Disposition: Admitted As Inpatient Discharge Instructions Interventions: ED Discharge Assessment Last Done: 08/10/22 21:29
[2022-08-10] MEDS ORDERED: ALBUT/IPRATROP 3MG/0.5MG NEB 3 ML VIAL NEB STA (18:36)
--- NOTE | 2022-08-10 18:41 | History & Physical Report ---
Date of Service August 10, 2022 Assessment & Plan (1) Abscess of skin: Plan: - 3 days of erythema, swelling at site of left saphenous vein harvest for CABG in January. - Seen in ED 2 days ago, 08/08, abscess drained, placed on doxycycline after receiving initial dose of Rocephin in ED. First dose of doxycycline taken this morning. - Unfortunately, cultures from this visit were not processed - POCUS: 4 x 6.5 cm loculated abscess, drained in ED today, with blood and wound cultures collected. - Vancomycin and cefepime started in ED, will continue and follow cultures. (2) Cough: Plan: - Patient began coughing and wheezing this morning, no fever/chills, SOB, orthopnea. - CXR: Cardiomegaly with mild bibasilar atelectasis. Left elevated hemidiaphragm not a new finding. - No leukocytosis, CXR not indicating a lobar pneumonia, biofire panel pending. - Supportive scheduled/prn DuoNeb treatments, Robitussin, incentive spirometry, flutter valve. - Will collect sputum for culture, do not suspect bacterial pneumonia but will be covered nonetheless with abx for abscess. (3) CAD (coronary artery disease): Plan: - s/p 3 vessel CABG in January of this year, complicated by post-op a fib, ischemic cardiomyopathy, LBBB, HFrEF. - Echo April 2022: EF 25-30% w mild-moderate MR. - Continue Plavix, metoprolol, Entresto, isosorbide, Lasix, spironolactone, Xarelto. - Refuses statin therapy. (4) Ischemic cardiomyopathy: Plan: - Secondary CAD, LBBB. - Continue meds as above. (5) Chronic systolic heart failure: Plan: - EF 25-30% with mild MR. - Appears euvolemic on exam, CXr not showing and vascular congestion. - Dry weight 175 lb. - Strict I/Os, daily standing weights. - Low sodium diet/fluids restriction. - Continue Lasix and spironolactone. - Follows with HF clinic. (6) Paroxysmal atrial fibrillation: Plan: - Isolated incident in January s/p CABG, d/c'd on Xarelto and metoprolol. - Continue Xarelto + metoprolol. (7) Benign prostatic hyperplasia: Plan: - Continue Flomax, finasteride. Plan - Admit to med/tele. - SCDs, Xarelto for VTE ppx. - Full Code. History of Present Illness Chief Complaint: painful lump in left grain x 1 day Primary Care Provider: Albert Sharma MD Emerson Bailey is an 82 y/o male with past medical history of CAD s/p CABG in January complicated by afib, HFrEF, LBBB, ischemic cardiomyopathy, hypertension, severe hearing loss, BPH, prediabetes who presents today with left leg pain. He was seen in our ED 2 days ago on 08/08 for a left leg abscess. This was drained, he was provided a dose of Rocephin, and d/c'd home with doxycycline, first dose taken today as his pharmacy was closed yesterday due to the holiday. He is representing today with additional redness, swelling in his left anterior/medial thigh and pain with ambulation. Bedside U/S in ED revealed a 4 x 6.5 cm loculated fluid collection, this was drained , revealing bloody, somewhat purulent fluid, both blood and fluid cultures were sent off. He also reports wheezing and coughing over the past day to start this morning. Feels like he has "lungs full of mucus" and feels generally congested. He has not had any fever or chills, shortness of breath, chest pain, or any weight gain. Dry weight reported by HF clinic to be 175 lbs. No history of COPD, but lived with his for many years who was a regular smoker. Upon presentation, VS wnl and stable. Labs unrevealing; without leukocytosis, electrolyte abnormalities, impaired renal function. Lactate pending. CXR with cardiomegaly, no vascular congestion or infectious process noted. Allergies Allergy/AdvReac Type Severity Reaction Status Date / Time Sulfa (Sulfonamide AdvReac Intermediate Nausea, Verified 08/10/22 19:55 Antibiotics) Weakness, Dizziness Home Medications Medication Instructions Recorded Confirmed Type nitroglycerin 0.4 mg sublingual 0.4 mg sublingual Q5M PRN chest 04/09/22 08/10/22 Rx tablet (Nitrostat) pain #30 tabs tamsulosin 0.4 mg capsule 0.4 mg PO QAM 04/16/22 08/10/22 History mirtazapine 15 mg tablet (Remeron) 15 mg PO HS #90 tabs 04/30/22 08/10/22 Rx rivaroxaban 15 mg tablet (Xarelto) 15 mg PO QDD #90 tabs 04/30/22 08/10/22 Rx clopidogrel 75 mg tablet 75 mg PO QAM #90 tabs 05/22/22 08/10/22 Rx metoprolol succinate 25 mg 25 mg PO QAM #90 tabs 05/22/22 08/10/22 Rx tablet,extended release 24 hr isosorbide dinitrate 5 mg tablet 5 mg PO TID #270 tabs 05/24/22 08/10/22 Rx furosemide 40 mg tablet 40 mg PO Q OTHER DAY 07/02/22 08/10/22 History potassium chloride 10 mEq 10 meq PO Q OTHER DAY 07/02/22 08/10/22 History tablet,extended release sacubitril 24 mg-valsartan 26 mg 1 tab PO BID 07/02/22 08/10/22 History tablet (Entresto) spironolactone 25 mg tablet 25 mg PO DAILY #30 tabs 07/03/22 08/10/22 Rx finasteride 5 mg tablet 5 mg PO QAM #90 tabs 07/13/22 08/10/22 Rx pantoprazole 40 mg tablet,delayed 40 mg PO DAILY #90 tabs 07/13/22 08/10/22 Rx release doxycycline hyclate 100 mg capsule 100 mg PO BID 10 days #20 caps 08/09/22 08/10/22 Rx Past Med/Surg History Medical History Ambulatory dysfunction Benign prostatic hyperplasia Depressed mood Disequilibrium Elevated troponin I level Falls Fever Frequent falls Hearing loss Hypertension Lab test negative for COVID-19 virus Male erectile disorder of organic origin Mitral regurgitation Prediabetes Tinnitus Vitamin D deficiency Surgical History History of coronary artery bypass graft x 3 02/10/22 @ [facility] [place] Lilian Hooper History of transurethral prostatectomy (09/14/12) Family History Father Colorectal cancer Mother Cancer Brother Laryngeal cancer Sister Alzheimer disease Other No family history of adverse response to anesthesia No family history of bleeding disorder Denies family history of Ovarian cancer Prostate cancer Breast cancer Social History Smoking Status: Unknown if ever smoked Age Started Using Tobacco: 15; Second Hand Exposure: No; Hx Alcohol Use: Yes Alcohol type: beer Alcohol Intake Frequency Comment: About 2 alcoholic beverages per day Hx Substance Use: No Preferred Language: Swazi Communication Ability: Effective Visual Impairment: No Limitations Hearing Ability: Use of Hearing Aid Bureau Director Required: No Beliefs That Will Affect Care: None marital status: / Current Living Situation: Alone current occupational status: retired How many Children do You have: 4 Feels Safe at Home: Yes caffeine: Yes Dental Care, Regularly: No Physical Activity Frequency: 1-2 Times per Week Seatbelt Use: always Assistive Devices: Cane and Walker Review of Systems Review of Systems: Constitutional: No fever/chills, weakness, fatigue, myalgias, anorexia, night sweats Eyes: No diplopia, no worsening or blurred vision ENT: normal hearing, no trouble swallowing Respiratory: cough, wheezing x 1 day w/ mucus production Cardiovascular: No chest pain, tightness or palpitations Abdomen: No pain, nausea, vomiting, diarrhea or constipation : Denies dysuria, hematuria, increased urgency/frequency, urinary retention Musculoskeletal: left medial knee/thigh lump w/ pain, redness, with difficulty ambulating x1 day; otherwise No joint pain, calf pain, swelling Neurologic: No weakness, numbness/tingling, or balance problems Psychiatric: No anxiety or depression Skin: No rash or itch Physical Exam Physical Exam: General: awake, alert, no apparent distress Head: Normocephalic, atraumatic ENT: PERRL, EOMI, no pharyngeal exudate, mucous membranes moist Chest: expiratory wheezing heard throughout lung boles; on RA Cardiac: Regular rate and rhythm, no murmur, no JVD, normal peripheral pulses, good capillary refill Abdominal: NABS x 4 quadrants, soft, nontender to palpation, no rebound, guarding or tenderness Extremities: LLE recently wrapped s/p drainage, but can appreciate some erythema extending past medial knee into thigh region; minimally TTP Psych: Normal mood and affect Neuro: AAO x 3, strength intact bilaterally and rated 5/5, no motor deficits, speech is clear, no peripheral sensory deficits Skin: no rash or erythema Results & Data Results & Data ([facility]) Vital Signs (Past 12 Hours) Vital Signs Temp Pulse Pulse Resp BP BP Pulse Ox 08/10/22 17:49 88 120/54 L 98 08/10/22 16:46 36.8 C 67 18 137/68 95 O2 Del Method 08/10/22 17:49 Room Air 08/10/22 16:46 Room Air Laboratory Results Abnormal lab results 08/10/22 08/10/22 Range/Units 17:14 17:14 RBC 3.66 L (4.63-6.08) M/uL Hgb 11.3 L (14.0-18.0) g/dl Hct 33.7 L (40.1-51.0) % RDW Std Deviation 48.1 H (36.4-46.3) fL [place] # (Auto) 1.05 H (0.24-0.82) K/uL Immature Gran # (Auto) 0.05 H (0.00-0.02) K/uL Glucose 107 H (70-99(Fasting)) mg/dl Diagnostic Findings Chest X-Ray 08/10/22 17:29 XR chest 1V portable HISTORY: 82 years-old Male cough, flu like symptoms acute cough COMPARISON: CTA chest 08/02/2022 TECHNIQUE: Portable AP view of the chest FINDINGS: Cardiac silhouette is enlarged. Prior median sternotomy and CABG. Subsegmental bibasilar atelectasis with unchanged blunting of the left costophrenic angle. No pneumothorax, large pleural effusion or overt pulmonary edema. Degenerative changes of the shoulders and spine. IMPRESSION: Cardiomegaly with mild bibasilar atelectasis. ACT 112: Negative or not required by law. The above report was generated using voice recognition software. It may contain grammatical, syntax or spelling errors. Electronically signed by: Salty Rodrigues M.D. 08/10/2022 7:29 PM Code Status & VTE Plan Code Status Full Code. Supervising Physician Co-Signing Physician Notes Patient was seen and examined independently I discussed the case with Amina ARMAS I reviewed pertinent past medical social family history and also the plan of care and agree with the plan of care. Patient is primarily here for progressive swelling of his left inner thigh at the incision from his vein harvest. This was found to have a confirmed abscess or fluid collection by emergency physician who then evacuated this and placed a wick. There is some surrounding skin erythema which tracks up the inner thigh towards the groin. This is a fairly large area. Its been worsening over the last few days and the patient was unable to get outpatient antibiotics prescribed to him due to the holiday. Secondary problem is cough with breathlessness and occasional production of sputum. Cefepime and vancomycin use for his skin infection will likely cover any pulmonary issues at this time (with exception of atypicals) a bio fire is pending, chest x-ray does not show infiltrate but elevation of his left hemidiaphragm similar to previous. Patient given mucolytic and cough suppressant if needed Physical examination he is coarse breath sounds bilaterally his leg has a bandage in place but there is induration to his groin and the medial aspect of his left inner thigh Will continue antibiotics broad-spectrum at this time cultures were obtained for his pulmonary status bio fire is pending cefepime and Vanco continues following his clinical course Any exceptions will be noted below PG Care Time/CCT Total # of Minutes Spent Total Time Spent with Patient: Total time spent is greater than 50% in coordination of care (as documented) at patient's floor/unit and/or counseling patient: Coding Level of Care Code 72669 Initial Inpt Care Lvl 3 Diagnoses Abscess of skin L02.91 Cough R05.9 CAD (coronary artery disease) I25.10 Ischemic cardiomyopathy I25.5 Chronic systolic heart failure I50.22 Paroxysmal atrial fibrillation I48.0 Benign prostatic hyperplasia N40.0
--- NOTE | 2022-08-10 19:31 | XRay Report ---
XR chest 1V portable HISTORY: 82 years-old Male cough, flu like symptoms acute cough COMPARISON: CTA chest 08/02/2022 TECHNIQUE: Portable AP view of the chest FINDINGS: Cardiac silhouette is enlarged. Prior median sternotomy and CABG. Subsegmental bibasilar atelectasis with unchanged blunting of the left costophrenic angle. No pneumothorax, large pleural effusion or ov ert pulmonary edema. Degenerative changes of the shoulders and spine. IMPRESSION: Cardiomegaly with mild bibasilar atelectasis. ACT 112: Negative or not required by law. The above report was generated using voice recognition software. It may contain grammatical, syntax o r spelling errors. Electronically signed by: Salty Rodrigues M.D. 08/10/2022 7:29 PM
[2022-08-10 20:19] LABS: Adenovirus PCR Not Detected (NotDetected); Bordetella parapertussis PCR Not Detected (NotDetected); Bordetella pertussis PCR Not Detected (NotDetected); Chlamydia pneumoniae PCR Not Detected (NotDetected); Coronavirus 229E PCR Not Detected (NotDetected); Coronavirus CoV-2 (COVID19)PCR Not Detected (NotDetected); Coronavirus HKU1 PCR Not Detected (NotDetected); Coronavirus NL63 PCR Not Detected (NotDetected); Coronavirus OC43PCR Not Detected (NotDetected); Human Metapneumovirus PCR Not Detected (NotDetected); Influenza A PCR Not Detected (NotDetected); Influenza B PCR Not Detected (NotDetected); Mycoplasma pneumoniae PCR Not Detected (NotDetected); Parainfluenza Virus 1 PCR Not Detected (NotDetected); Parainfluenza Virus 2 PCR Not Detected (NotDetected); Parainfluenza Virus 3 PCR Not Detected (NotDetected); Parainfluenza Virus 4 PCR Not Detected (NotDetected); Respiratory Syncytial VirusPCR Not Detected (NotDetected); Rhinovirus/Enterovirus PCR Not Detected (NotDetected)
[2022-08-10] MEDS ORDERED: MoRPHine SULFATE 2 MG/ML CARP IV PRN ×2 (22:06)
[2022-08-10] MEDS ORDERED: ALBUT/IPRATROP 3MG/0.5MG NEB 3 ML VIAL NEB PRN (22:06)
[2022-08-10] MEDS ORDERED: POLYETHYLENE (MIRALAX) 17 GM PACK PO PRN (22:06)
[2022-08-10] MEDS ORDERED: ACETAMINOPHEN 325 MG TAB PO PRN (22:06)
[2022-08-10] MEDS ORDERED: ALUMINUM/MAGNESIUM SUSP 30 ML UDC PO PRN (22:06)
[2022-08-10] MEDS ORDERED: NITROGLYCERIN SL 0.4 MG/TAB TAB SL PRN (22:06)
[2022-08-10] MEDS ORDERED: ONDANSETRON INJ 2 MG/ML 2 ML VIAL IV PRN (22:06)
[2022-08-10] MEDS: guaiFENesin/DEXTROM SYRUP 100MG/10MG 5ML UDC PO PRN (23:50)
[2022-08-10] MEDS: VALSARTAN/SACUBITRIL 26/24MG TAB PO SCH (23:50)
[2022-08-10] MEDS: MIRTAZAPINE TAB 15 MG TAB PO SCH (23:50)
[2022-08-11] MEDS ORDERED: INFLUENZA VACCINE HIGH DOSE PF 65+ 0.7 ML SYR IM ONE (00:46)
[2022-08-11] MEDS ORDERED: ALBUT/IPRATROP 3MG/0.5MG NEB 3 ML VIAL INH SCH (01:00)
[2022-08-11] MEDS: CEFEPIME 2,000 MG in SYRINGE 0 ML IV SCH ×2 (05:16→17:31)
[2022-08-11] MEDS: VANCOMYCIN HCL 1,250 MG in SODIUM CHLORIDE 0.9% 500 ML IV SCH (05:16)
[2022-08-11 05:43] LABS: Basophils # (auto) 0.02 K/uL (0-0.2); Basophils % (auto) 0.3 %; Eosinophils # (auto) 0.36 K/uL (0-0.50); Hematocrit (blood only) 33.8 % (40.1-51.0); Hemoglobin 11.3 g/dl (14.0-18.0); Immature Granulocytes # (auto) 0.03 K/uL (0.00-0.02); Immature Granulocytes % (auto) 0.4 %; Lymphocytes # (auto) 1.81 K/uL (1.2-3.4); Lymphocytes % (auto) 25.4 %; Mean Corpuscular Hemoglobin 30.5 pg (25.0-34.0); Mean Corpuscular Hgb Conc 33.4 g/dL (32.0-36.0); Mean Corpuscular Volume 91.1 fL (80.0-100.0); Mean Platelet Volume 9.3 fL (9.4-12.4); Monocytes # (auto) 0.95 K/uL (0.24-0.82); Monocytes % (auto) 13.3 %; Neutrophils # (auto) 3.97 K/uL (1.4-6.5); Neutrophils % (auto) 55.6 %; Platelet Count 212 K/uL (130-400); RDW Standard Deviation 47.3 fL (36.4-46.3); Red Blood Count 3.71 M/uL (4.63-6.08); White Blood Count 7.14 K/ul (4.8-10.8)
[2022-08-11] MEDS: guaiFENesin/DEXTROM SYRUP 100MG/10MG 5ML UDC PO PRN (05:48)
[2022-08-11 06:06] LABS: BUN Creatinine Ratio 13.1 (10-20); Calcium 8.3 mg/dl (8.5-10.1); Est GFR (African American) 74.5 ml/min; Est GFR (Non-African American) 64.3 ml/min; Magnesium 1.6 mg/dl (1.7-2.4); Potassium 3.6 mmol/L (3.5-5.1)
[2022-08-11] MEDS: FUROSEMIDE 40 MG TAB PO SCH (08:55)
[2022-08-11] MEDS: PANTOprazole 40 MG TAB PO SCH (08:55)
[2022-08-11] MEDS: FINASTERIDE 5 MG TAB PO SCH (08:56)
[2022-08-11] MEDS: ISOSORBIDE DINITRATE 5 MG TAB PO SCH ×3 (08:56→16:20)
[2022-08-11] MEDS: CLOPIDOGREL BISULFATE 75 MG TAB PO SCH (08:56)
[2022-08-11] MEDS: METOPROLOL SUCC 25MG EXT REL TAB PO SCH (08:56)
[2022-08-11] MEDS: POTASSIUM CHLORIDE 10 MEQ TABCR PO SCH (08:56)
[2022-08-11] MEDS: VALSARTAN/SACUBITRIL 26/24MG TAB PO SCH ×2 (08:57→21:10)
[2022-08-11] MEDS: TAMSULOSIN HCL 0.4 MG CAP PO SCH (08:57)
[2022-08-11] MEDS ORDERED: SPIRONOLACTONE 25 MG TAB PO SCH (09:00)
[2022-08-11] MEDS: MAGNESIUM SULFATE / D5W 1 GM/100 ML BAG IV SCH ×2 (10:21→12:07)
[2022-08-11] MEDS: ADVANCED PROBIOTIC 1250 MG CAPSULE PO SCH (10:22)
--- NOTE | 2022-08-11 11:24 | Pharmacy Report ---
Pharmacy PK ABX Note - Date of Service August 11, 2022 - Assessment and Plan Assessment * 82 year old M receiving cefepime and vancomycin for treatment of abscess/swelling at site of left saphenous vein harvest for CABG in January. S/p I&D in ED on 08/08 and sent w doxycycline, but no culture results to assess. Repeat I&D this visit on 08/10, cultures pending. Plan Vancomycin * Loading dose: 1750 mg IV x 1 * Maintenance dose: 1250 mg IV every 24 hours * Regimen is predicted to achieve target AUC/KATINA of 400-600 mg/L.hr * Trough level ordered for: 08/12 Pharmacy will continue to follow and will adjust dose/frequency as necessary. Thank you. Pharmacy has transitioned to AUC monitoring for vancomycin. AUC/KATINA is the preferred PK/PD target and is associated with decreased risk of nephrotoxicity compared to traditional trough targets.
[2022-08-11] MEDS ORDERED: POTASSIUM CHLORIDE CRTAB 20 MEQ TABCR PO STA (14:24)
[2022-08-11] MEDS ORDERED: IPRATROPIUM BROMIDE/ALBUTEROL respimat INH INH SCH (14:25)
--- NOTE | 2022-08-11 14:26 | Hospitalist Progress Note ---
Date of Service August 11, 2022 Assessment & Plan (1) Abscess of skin: Plan: left medial thigh. s/p I/D 08/08/22 in ER - culture not sent, rocephin given, doxy PO given at d/c. abscess did not improve. s/p I/D 08/10/22 in ER - culture sent. On cefepime/vanco since admission yesterday. Abscess still quite large, fluctuant, tender. Focused u/s ordered today -- 6.5 x 2.4 x 3.5 cm in size. This is largely unchanged from yesterday (ER provider did a focused u/s yesterday at time of admission). I spoke with Dr De La Garza from gen surg who will consult in am. Likely to need more extensive I/D tomorrow in OR. NPO after MN tonight. Cont current IV antibiotics. Hold xarelto. (2) Acute bronchitis: Plan: Respiratory biofire surprisingly negative. [id number] clinical picture most c/w acute viral bronchitis. Add tessalon TID scheduled. Add mucinex 1200mg BID scheduled. Add combivent 1 puff QID scheduled. Pulmonary edema could cause wheezing thus gave additional lasix 20mg IV x 1 today. re-eval tomorrow. (3) Hypomagnesemia: Plan: level 1.6 replete with IV mag repeat level am (4) CAD (coronary artery disease): Plan: s/p 3 vessel CABG in January of this year, complicated by post-op a fib, ischemic cardiomyopathy, LBBB, HFrEF. Echo April 2022: EF 25-30% w mild-moderate MR. Continue Plavix, metoprolol, Entresto, isosorbide, Lasix, spironolactone. Refuses statin therapy by report. No ischemic symptoms at this time. (5) Ischemic cardiomyopathy: Plan: Secondary CAD. Likely euvolemic at this time. Continue meds as above in #4. (6) Chronic systolic heart failure: Plan: EF 25-30% with mild MR. Dry weight 175 lb. Weight a few pounds above this. Can't rule out an element of pulm edema. Lasix 20mg IV x 1 today and re-eval tomorrow. Repeat labs in am. Strict I/Os, daily standing weights. Follows with CHF clinic. (7) Paroxysmal atrial fibrillation: Plan: Isolated incident in January s/p CABG, d/c'd on Xarelto and metoprolol. Continue metoprolol. Hold xarelto for I/D procedure tomorrow. (8) Benign prostatic hyperplasia: Plan: Continue Flomax, finasteride. No issues at this time. (9) Hearing loss: Plan: severe, b/l use dry Valderm board for communication purposes if necessary Plan spoke with pt's daughter, Mercedes, by phone ([phone]) extensive update given 08/11 Admission and Anticipated Discharge Date Admission Date: August 10, 2022 Subjective communication with patient was very difficult because of severe hearing impairment however, he states his left leg continues to have pain he also continues with severe cough and congestion tele overnight wnl - NSR, no PAF appetite fair-good Review of Systems Review of Systems: gen - no fevers or chills cv - no chest pain, no orthopnea pulm - no dyspnea; +wheezing GI - no nausea/vomiting Physical Exam Physical Exam: gen - coughing, but no distress mouth - MM dry ears - hearing impairment (severe) neck - no JVD heart - RRR, s1 s2, 2/6 systolic murmur LSB lungs - diffuse wheezing b/l all lung segments, scattered rales bases, no increased work of breathing abd - mildly distended, BS+, NT, no HSM ext - trace edema left foot/ankle; no edema RLE; pulses b/l feet 2+ skin - large abscess of left medial thigh - about 5-6cm in diameter; fluctuant to palpation; previous incision site only 2-3mm in size; no drainage; no packing material present; abscess very tender to touch; mild surrounding cellulitis; left thigh scar from prior saphenous vein harvest for CABG, about 1-2cm away from the abscess Results & Data Results & Data ([facility]) Vital Signs (Past 12 Hours) Vital Signs Temp Pulse Pulse Resp BP Pulse Ox O2 Del Method 08/11/22 07:00 86 08/11/22 12:12 36.5 C 55 L 19 120/72 96 Room Air 08/11/22 07:00 Room Air 08/11/22 08:13 36.7 C 52 L 19 120/75 92 Room Air 08/11/22 04:00 36.7 C 67 18 109/66 96 Room Air Laboratory Results Laboratory Results - last 24 hr 08/10/22 08/11/22 08/11/22 18:29 05:35 05:35 WBC 7.14 RBC 3.71 L Hgb 11.3 L Hct 33.8 L MCV 91.1 MCH 30.5 MCHC 33.4 RDW Std Deviation 47.3 H RDW Coeff of Asiya 14.0 Plt Count 212 MPV 9.3 L Immature Gran % (Auto) 0.4 Neut % (Auto) 55.6 Lymph % (Auto) 25.4 Christian % (Auto) 13.3 Eos % (Auto) 5.0 Baso % (Auto) 0.3 Neut # (Auto) 3.97 Lymph # (Auto) 1.81 Christian # (Auto) 0.95 H Eos # (Auto) 0.36 Baso # (Auto) 0.02 Immature Gran # (Auto) 0.03 H Sodium 138 Potassium 3.6 Chloride 105 Carbon Dioxide 29 Anion Gap 4 BUN 14 Creatinine 1.07 Est Cr Clr Drug Dosing 55.0 Est GFR ( Amer) 74.5 Est GFR (Non-Af Amer) 64.3 BUN/Creatinine Ratio 13.1 Glucose 89 Calcium 8.3 L Magnesium 1.6 L Adenovirus (PCR) Not Detected B. pertussis DNA (PCR) Not Detected B.parapertussis DNA PCR Not Detected C. pneumoniae DNA (PCR) Not Detected Coronavirus OC43 (PCR) Not Detected Coronavirus HKU1 (PCR) Not Detected Coronavirus 229E (PCR) Not Detected SARS-CoV-2 (PCR) Not Detected Coronavirus NL63 (PCR) Not Detected Human Metapneumovir PCR Not Detected Influenza Type A (PCR) Not Detected Influenza Type B (PCR) Not Detected M. pneumoniae (PCR) Not Detected Parainfluenza 1 (PCR) Not Detected Parainfluenza 2 (PCR) Not Detected Parainfluenza 3 (PCR) Not Detected Parainfluenza 4 (PCR) Not Detected RSV (PCR) Not Detected Entero/Rhino (PCR) Not Detected Diagnostic Findings wound cx - neg to date resp cx - neg to date PG Care Time/CCT Total # of Minutes Spent Total Time Spent with Patient: Total time spent is greater than 50% in coordination of care (as documented) at patient's floor/unit and/or counseling patient: Coding Level of Care Code 52040 Subseq Hosp Care Lvl 3 Diagnoses Abscess of skin L02.91 Acute bronchitis J20.9 Hypomagnesemia E83.42 CAD (coronary artery disease) I25.10 Ischemic cardiomyopathy I25.5 Chronic systolic heart failure I50.22 Paroxysmal atrial fibrillation I48.0 Benign prostatic hyperplasia N40.0 Hearing loss H91.90
[2022-08-11] MEDS ORDERED: FUROSEMIDE INJ 20 MG/2 ML VIAL IV ONE (14:30)
[2022-08-11] MEDS: IPRATROPIUM BROMIDE HFA INHALER INH SCH ×2 (15:52→20:17)
[2022-08-11] MEDS: ALBUTEROL HFA 8 GM INHALER INH SCH ×2 (15:52→20:18)
[2022-08-11] MEDS: BENZONATATE 100 MG CAPSULE PO SCH ×2 (16:17→21:09)
[2022-08-11] MEDS: RIVAROXABAN 15 MG TAB PO SCH (16:20)
--- NOTE | 2022-08-11 17:19 | Ultrasound Report ---
ULTRASOUND SOFT TISSUES LEFT THIGH NONVASCULAR CLINICAL HISTORY: Pain and swelling with a palpable lump. Clinical concern for abscess. COMPARISON STUDY: No priors. FINDINGS: Real-time grayscale and color flow sonography of the medial left thigh soft tissues is perf ormed at the indicated site of interest. There is a complex nonvascular fluid collection at the site which measures 6.5 x 2.4 x 3.5 cm. This is located approximately 3 mm deep to the dermal surface. Von rounding soft tissue edema is noted. IMPRESSION: Complex nonvascular fluid collection in the medial left thigh at the site of interest. To p differential considerations include abscess or hematoma. Clinical correlation will be required and clinical follow-up to resolution is recommended. Electronically signed by: Liborio Newton M.D. 08/11/2022 5:17 PM
[2022-08-11] MEDS: guaiFENesin 600 MG TABCR PO SCH (21:07)
[2022-08-11] MEDS: MIRTAZAPINE TAB 15 MG TAB PO SCH (21:10)
[2022-08-12] MEDS ORDERED: MELATONIN 3 MG TAB PO ONE (00:42)
[2022-08-12] MEDS: CEFEPIME 2,000 MG in SYRINGE 0 ML IV SCH ×2 (05:15→17:40)
[2022-08-12] MEDS ORDERED: VANCOMYCIN LEVEL ONE (05:30)
[2022-08-12 06:26] LABS: BUN Creatinine Ratio 13.7 (10-20); Calcium 8.6 mg/dl (8.5-10.1); Creatinine Clr Calc Pharmacy 47.4 ml/min; Est GFR (African American) 62.4 ml/min; Est GFR (Non-African American) 53.8 ml/min; Magnesium 1.9 mg/dl (1.7-2.4); Potassium 3.8 mmol/L (3.5-5.1)
[2022-08-12] MEDS: VANCOMYCIN HCL 1,250 MG in SODIUM CHLORIDE 0.9% 500 ML IV SCH (06:36)
[2022-08-12] MEDS: ALBUTEROL HFA 8 GM INHALER INH SCH ×4 (07:26→19:46)
[2022-08-12] MEDS: IPRATROPIUM BROMIDE HFA INHALER INH SCH ×4 (07:27→19:46)
--- NOTE | 2022-08-12 08:00 | History & Physical Report ---
Date of Service August 12, 2022 Assessment & Plan (1) Abscess of skin: Plan: will paln I&D in OR Present on Admission?: Yes Admission and Anticipated Discharge Date Admission Date: August 10, 2022 History of Present Illness Primary Care Provider: Albert Sharma MD [facility], [id number] History & Physical Report ISigned Patient:ADRIANNA ELLSWORTH SR Admit Date:08/10/22 MR#:[id number] Att Phy: Acct ID:[id number] Adriana Phy:Albert Sahrma MD Date:1940 Fam Phy: Age:82 Location:ED Sex:M Room/Bed: cc: Albert Sharma MD~ *NOTICE TO RECEIVING GREEN PARTY/AGENCY This information is strictly Confidential and protected under [place] law. [place] law prohibits you from making any further disclosure of this information unless further disclosure is expressly permitted by the written consent of the person to whom it pertains or is authorized by law. A general authorization for the release of medical or other information is not sufficient for this purpose. Hospital accepts no responsibility if the information is made available to any other person, INCLUDING THE PATIENT. Date of Service August 10, 2022 Assessment & Plan (1) Abscess of skin: Plan: - 3 days of erythema, swelling at site of left saphenous vein harvest for CABG in January. - Seen in ED 2 days ago, 08/08, abscess drained, placed on doxycycline after receiving initial dose of Rocephin in ED. First dose of doxycycline taken this morning. - Unfortunately, cultures from this visit were not processed - POCUS: 4 x 6.5 cm loculated abscess, drained in ED today, with blood and wound cultures collected. - Vancomycin and cefepime started in ED, will continue and follow cultures. (2) Cough: Plan: - Patient began coughing and wheezing this morning, no fever/chills, SOB, orthopnea. - CXR: Cardiomegaly with mild bibasilar atelectasis. Left elevated hemidiaphragm not a new finding. - No leukocytosis, CXR not indicating a lobar pneumonia, biofire panel pending. - Supportive scheduled/prn DuoNeb treatments, Robitussin, incentive spirometry, flutter valve. - Will collect sputum for culture, do not suspect bacterial pneumonia but will be covered nonetheless with abx for abscess. (3) CAD (coronary artery disease): Plan: - s/p 3 vessel CABG in January of this year, complicated by post-op a fib, ischemic cardiomyopathy, LBBB, HFrEF. - Echo April 2022: EF 25-30% w mild-moderate MR. - Continue Plavix, metoprolol, Entresto, isosorbide, Lasix, spironolactone, Xarelto. - Refuses statin therapy. (4) Ischemic cardiomyopathy: Plan: - Secondary CAD, LBBB. - Continue meds as above. (5) Chronic systolic heart failure: Plan: - EF 25-30% with mild MR. - Appears euvolemic on exam, CXr not showing and vascular congestion. - Dry weight 175 lb. - Strict I/Os, daily standing weights. - Low sodium diet/fluids restriction. - Continue Lasix and spironolactone. - Follows with HF clinic. (6) Paroxysmal atrial fibrillation: Plan: - Isolated incident in January s/p CABG, d/c'd on Xarelto and metoprolol. - Continue Xarelto + metoprolol. (7) Benign prostatic hyperplasia: Plan: - Continue Flomax, finasteride. Femi is an 82 y/o male with past medical history of CAD s/p CABG in January complicated by afib, HFrEF, LBBB, ischemic cardiomyopathy, hypertension, severe hearing loss, BPH, prediabetes who presented to ED left thigh pain. He was seen in ED 2 days ago on 08/08 for a left leg abscess. This was partially drained and given a dose of Rocephin, also given doxycycline. He is representing today with additional redness, swelling in his left anterior/medial thigh and pain with ambulation. Bedside U/S in ED revealed a 4 x 6.5 cm loculated fluid collection. Allergies Allergy/AdvReac Type Severity Reaction Status Date / Time Sulfa (Sulfonamide AdvReac Intermediate Nausea, Verified 08/10/22 19:55 Antibiotics) Weakness, Dizziness Home Medications Medication Instructions Recorded Confirmed Type nitroglycerin 0.4 mg sublingual 0.4 mg sublingual Q5M PRN chest 04/09/22 08/10/22 Rx tablet (Nitrostat) pain #30 tabs tamsulosin 0.4 mg capsule 0.4 mg PO QAM 04/16/22 08/10/22 History mirtazapine 15 mg tablet (Remeron) 15 mg PO HS #90 tabs 04/30/22 08/10/22 Rx rivaroxaban 15 mg tablet (Xarelto) 15 mg PO QDD #90 tabs 04/30/22 08/10/22 Rx clopidogrel 75 mg tablet 75 mg PO QAM #90 tabs 05/22/22 08/10/22 Rx metoprolol succinate 25 mg 25 mg PO QAM #90 tabs 05/22/22 08/10/22 Rx tablet,extended release 24 hr isosorbide dinitrate 5 mg tablet 5 mg PO TID #270 tabs 05/24/22 08/10/22 Rx furosemide 40 mg tablet 40 mg PO Q OTHER DAY 07/02/22 08/10/22 History potassium chloride 10 mEq 10 meq PO Q OTHER DAY 07/02/22 08/10/22 History tablet,extended release sacubitril 24 mg-valsartan 26 mg 1 tab PO BID 07/02/22 08/10/22 History tablet (Entresto) spironolactone 25 mg tablet 25 mg PO DAILY #30 tabs 07/03/22 08/10/22 Rx finasteride 5 mg tablet 5 mg PO QAM #90 tabs 07/13/22 08/10/22 Rx pantoprazole 40 mg tablet,delayed 40 mg PO DAILY #90 tabs 07/13/22 08/10/22 Rx release doxycycline hyclate 100 mg capsule 100 mg PO BID 10 days #20 caps 08/09/22 08/10/22 Rx Past Med/Surg History Medical History Ambulatory dysfunction Benign prostatic hyperplasia Depressed mood Disequilibrium Elevated troponin I level Falls Fever Frequent falls Hearing loss Hypertension Lab test negative for COVID-19 virus Male erectile disorder of organic origin Mitral regurgitation Prediabetes Tinnitus Vitamin D deficiency Surgical History History of coronary artery bypass graft x 3 02/10/22 @ [facility] [place] Lilian Hooper History of transurethral prostatectomy (09/14/12) Family History Father Colorectal cancer Mother Cancer Brother Laryngeal cancer Sister Alzheimer disease Other No family history of adverse response to anesthesia No family history of bleeding disorder Denies family history of Ovarian cancer Prostate cancer Breast cancer Social History Smoking Status: Unknown if ever smoked Age Started Using Tobacco: 15; Second Hand Exposure: No; Do You Dip or Chew Tobacco: No; Hx Alcohol Use: Yes Alcohol type: beer Alcohol Intake Frequency Comment: About 2 alcoholic beverages per day Hx Substance Use: No Preferred Language: Welsh Communication Ability: Effective Communication Ability Comment: AKHIOK Visual Impairment: No Limitations Hearing Ability: Use of Hearing Aid Adult Parole Officer Required: No Beliefs That Will Affect Care: None marital status: / Current Living Situation: Alone current occupational status: retired How many Children do You have: 4 Feels Safe at Home: Yes Safety Concerns: Feels Safe At This Time caffeine: Yes Dental Care, Regularly: No Physical Activity Frequency: 1-2 Times per Week Seatbelt Use: always Assistive Devices: Cane Assistive Devices Comment: GONZALEZ @ Home Review of Systems + fever; no chills + cough and + chest congestion; no dyspnea no chest pain and no radiating jaw, neck or arm pain no abdominal pain, no nausea, no vomiting and no change in bowel habits no dysuria no back pain, no neck pain and no joint pain no lesions no localized weakness and no generalized weakness no behavioral changes Physical Exam Constitutional: WD/WN, vitals as above Eyes: PERRL, conjunctivae normal, anicteric sclerae ENMT: external ear and nose normal, oropharynx normal Neck: trachea midline, no thyromegaly Respiratory: normal respiratory effort, lungs clear to auscultation Cardiovascular: RRR, no murmur, no edema Gastrointestinal (Abdomen): normal bowel sounds, soft, nontender, no hepatosplenomegaly Musculoskeletal: Head/Neck/Chest: normocephalic and head atraumatic Skin: no rashes, warm and dry + lesion (abscess left thigh, 4 cm) Psychiatric: Orientation: alert and oriented x 3 Results & Data ([facility]) Vital Signs (Past 12 Hours) Vital Signs Temp Pulse Pulse Resp BP BP Pulse Ox 08/12/22 07:45 37.0 C 68 18 100/57 L 95 08/12/22 07:31 85 08/12/22 07:27 84 16 98 08/12/22 05:10 36.7 C 77 20 129/84 95 08/11/22 22:02 87 08/11/22 22:00 08/11/22 22:44 36.9 C 97 H 18 102/65 96 08/11/22 20:18 70 16 95 O2 Del Method 08/12/22 07:45 Room Air 08/12/22 07:31 08/12/22 07:27 Room Air 08/12/22 05:10 Room Air 08/11/22 22:02 08/11/22 22:00 Room Air 08/11/22 22:44 Room Air 08/11/22 20:18 Room Air Diagnostic Findings ULTRASOUND SOFT TISSUES LEFT THIGH NONVASCULAR CLINICAL HISTORY: Pain and swelling with a palpable lump. Clinical concern for abscess. COMPARISON STUDY: No priors. FINDINGS: Real-time grayscale and color flow sonography of the medial left thigh soft tissues is performed at the indicated site of interest. There is a complex nonvascular fluid collection at the site which measures 6.5 x 2.4 x 3.5 cm. This is located approximately 3 mm deep to the dermal surface. Surrounding soft tissue edema is noted. IMPRESSION: Complex nonvascular fluid collection in the medial left thigh at the site of interest. Top differential considerations include abscess or hematoma. Clinical correlation will be required and clinical follow-up to resolution is recommended. Code Status & VTE Plan VTE Prophylaxis Plan VTE Prophylaxis will be ordered: Yes
[2022-08-12] MEDS: BENZONATATE 100 MG CAPSULE PO SCH ×3 (08:53→20:47)
[2022-08-12] MEDS: POTASSIUM CHLORIDE 10 MEQ TABCR PO SCH (08:53)
[2022-08-12] MEDS: ISOSORBIDE DINITRATE 5 MG TAB PO SCH ×3 (08:54→16:32)
[2022-08-12] MEDS: TAMSULOSIN HCL 0.4 MG CAP PO SCH (08:55)
[2022-08-12] MEDS: METOPROLOL SUCC 25MG EXT REL TAB PO SCH (08:55)
[2022-08-12] MEDS: FUROSEMIDE 40 MG TAB PO SCH (08:56)
[2022-08-12] MEDS: CLOPIDOGREL BISULFATE 75 MG TAB PO SCH (08:56)
[2022-08-12] MEDS: FINASTERIDE 5 MG TAB PO SCH (08:56)
[2022-08-12] MEDS: ADVANCED PROBIOTIC 1250 MG CAPSULE PO SCH (08:57)
[2022-08-12] MEDS: PANTOprazole 40 MG TAB PO SCH (08:57)
[2022-08-12] MEDS: guaiFENesin 600 MG TABCR PO SCH ×2 (08:58→20:47)
--- NOTE | 2022-08-12 10:18 | Pharmacy Report ---
Pharmacy PK ABX Note - Date of Service August 12, 2022 - Assessment and Plan Assessment * 82 year old M receiving cefepime and vancomycin for treatment of abscess/swelling at site of left saphenous vein harvest for CABG in January. * S/p I&D in ED on 08/08 and sent w doxycycline, but no culture results to assess. * Repeat I&D this visit on 08/10 - no organisms seen on Gram stain * SCr stable as compared to 08/10 but slightly elevated as compared to yesterday and as compared to baseline of ~0.9 mg/dL. Vancomycin * Target AUC/KATINA of 400-600 mg/L.hr * Trough level ordered for 08/12 was 11.0 mcg/mL, which is associated with an approximate AUC of 497 mg/L.hr * SCr bump may or may not be of concern. OK to continue scheduled vancomycin for now, but will obtain an early repeat level in 48 hours. Additional adjustments will likely be needed tomorrow if SCr continues to rise Plan * Continue maintenance dose: 1250 mg IV every 24 hours * Trough level 08/14 @ 0530 Pharmacy will continue to follow and will adjust dose/frequency as necessary. Thank you. Pharmacy has transitioned to AUC monitoring for vancomycin. AUC/KATINA is the preferred PK/PD target and is associated with decreased risk of nephrotoxicity compared to traditional trough targets.
[2022-08-12] MEDS ORDERED: HYDROmorphone INJ 1 MG/ML SYRINGE IV PRN (10:22)
[2022-08-12] MEDS ORDERED: fentaNYL citrate 100 MCG/2 ML VIAL IV PRN (10:22)
[2022-08-12] MEDS ORDERED: ATROPINE SULFATE 0.1 MG/ML 10ML SYR IV PRN (10:22)
[2022-08-12] MEDS ORDERED: ONDANSETRON INJ 2 MG/ML 2 ML VIAL IV PRN (10:22)
[2022-08-12] MEDS ORDERED: MEPERIDINE HCL 25 MG/ML CARP/VIAL IV PRN (10:22)
[2022-08-12] MEDS ORDERED: PHENYLEPHRINE 100MCG/ML 5ML SYR IV PRN (10:22)
[2022-08-12] MEDS ORDERED: ALBUT/IPRATROP 3MG/0.5MG NEB 3 ML VIAL INH PRN (10:22)
--- NOTE | 2022-08-12 10:22 | Anesthesiology Consultation ---
Date of Service August 12, 2022 Assessment & Plan Chart Review Chart Review: Acceptable Risk for Surgery Consults Requested none ASA [id number] Proposed Anesthesia Anesthesia Type: MAC Risk / Benefits Reviewed With: PT / POA / Parent / Guardian, Accepts Plan and Informed Consent Obtained History Surgery Operation Date: 08/12/22 12:00 Proposed Procedures p Incision and Drainage General - Jeffry De La Garza MD Height/Weight Height: 5 ft 10 in Weight: 79.7 kg Allergies Allergy/AdvReac Type Severity Reaction Status Date / Time Sulfa (Sulfonamide AdvReac Intermediate Nausea, Verified 08/10/22 19:55 Antibiotics) Weakness, Dizziness Medications Home Medications Medication Instructions Recorded Confirmed Last Taken nitroglycerin 0.4 mg sublingual 0.4 mg sublingual Q5M PRN chest 04/09/22 08/10/22 Unknown tablet (Nitrostat) pain #30 tabs tamsulosin 0.4 mg capsule 0.4 mg PO QAM 04/16/22 08/10/22 08/10/22 09:00 mirtazapine 15 mg tablet (Remeron) 15 mg PO HS #90 tabs 04/30/22 08/10/22 08/08/22 rivaroxaban 15 mg tablet (Xarelto) 15 mg PO QDD #90 tabs 04/30/22 08/10/22 08/09/22 clopidogrel 75 mg tablet 75 mg PO QAM #90 tabs 05/22/22 08/10/22 08/10/22 09:00 metoprolol succinate 25 mg 25 mg PO QAM #90 tabs 05/22/22 08/10/22 08/10/22 09:00 tablet,extended release 24 hr isosorbide dinitrate 5 mg tablet 5 mg PO TID #270 tabs 05/24/22 08/10/22 08/10/22 14:00 furosemide 40 mg tablet 40 mg PO Q OTHER DAY 07/02/22 08/10/22 08/09/22 potassium chloride 10 mEq 10 meq PO Q OTHER DAY 07/02/22 08/10/22 08/09/22 tablet,extended release sacubitril 24 mg-valsartan 26 mg 1 tab PO BID 07/02/22 08/10/22 08/10/22 09:00 tablet (Entresto) spironolactone 25 mg tablet 25 mg PO DAILY #30 tabs 07/03/22 08/10/22 08/10/22 09:00 finasteride 5 mg tablet 5 mg PO QAM #90 tabs 07/13/22 08/10/22 08/10/22 09:00 pantoprazole 40 mg tablet,delayed 40 mg PO DAILY #90 tabs 07/13/22 08/10/22 08/10/22 09:00 release doxycycline hyclate 100 mg capsule 100 mg PO BID 10 days #20 caps 08/09/22 08/10/22 08/10/22 11:00 Active Medications Generic Name Dose Route Start Last Admin Trade Name Freq PRN Reason Stop Dose Admin Acetaminophen 650 mg 08/10/22 22:06 08/11/22 10:23 Acetaminophen 325 Mg Tab PO 09/09/22 22:05 650 mg Q4H PRN Administration Pain or Fever Albuterol 1 puffs 08/11/22 15:00 08/12/22 07:26 Albuterol Hfa 8 Gm Inhaler INH 09/10/22 14:59 1 puffs QIDR DEB Administration Benzonatate 100 mg 08/11/22 14:30 08/12/22 08:53 Benzonatate 100 Mg Capsule PO 09/10/22 14:29 100 mg TID DEB Administration Clopidogrel Bisulfate 75 mg 08/11/22 09:00 08/12/22 08:56 Clopidogrel Bisulfate 75 Mg Tab PO 09/10/22 08:59 75 mg QAM DEB Administration Finasteride 5 mg 08/11/22 09:00 08/12/22 08:56 Finasteride 5 Mg Tab PO 09/10/22 08:59 5 mg QAM DEB Administration Furosemide 40 mg 08/11/22 09:00 08/12/22 08:56 Furosemide 40 Mg Tab PO 09/10/22 08:59 40 mg DAILY DEB Administration Guaifenesin 1,200 mg 08/11/22 21:00 08/12/22 08:58 Guaifenesin 600 Mg Tabcr PO 09/10/22 20:59 1,200 mg Q12 DEB Administration Cefepime HCl 2,000 mg/ Syringe 20 mls @ 5 mls/min 08/11/22 06:00 08/12/22 05:15 IV 08/18/22 05:59 5 mls/min Q12H DEB Administration Protocol Vancomycin HCl 1,250 mg/ 525 mls @ 200 mls/hr 08/11/22 06:00 08/12/22 09:15 Sodium Chloride IV 08/18/22 05:59 Infused Q24H DEB Infusion Ipratropium [place] 1 puffs 08/11/22 15:00 08/12/22 07:27 Ipratropium [place] Hfa Inhaler INH 09/10/22 14:59 1 puffs QIDR DEB Administration Isosorbide Dinitrate 5 mg 08/11/22 07:00 08/12/22 08:54 Isosorbide Dinitrate 5 Mg Tab PO 09/10/22 06:59 5 mg TID@0700,1200,1700 DEB Administration Lactobacillus Acidophilus 2 cap 08/11/22 09:00 08/12/22 08:57 Advanced Probiotic 1250 Mg Capsule PO 09/10/22 08:59 2 cap DAILY DEB Administration Metoprolol Succinate 25 mg 08/11/22 09:00 08/12/22 08:55 Metoprolol Succ 25mg Ext Rel Tab PO 09/10/22 08:59 25 mg QAM DEB Administration Mirtazapine 15 mg 08/10/22 22:06 08/11/22 21:10 Mirtazapine Tab 15 Mg Tab PO 09/09/22 22:05 15 mg HS DEB Administration Pantoprazole Sodium 40 mg 08/11/22 09:00 08/12/22 08:57 Pantoprazole 40 Mg Tab PO 09/10/22 08:59 40 mg DAILY DEB Administration Potassium Chloride 10 meq 08/11/22 09:00 08/12/22 08:53 Potassium Chloride 10 Meq Tabcr PO 09/10/22 08:59 10 meq DAILY DEB Administration Rivaroxaban 15 mg 08/11/22 16:30 08/11/22 16:20 Rivaroxaban 15 Mg Tab PO 09/10/22 16:29 15 mg QDD DEB Administration Sacubitril/Valsartan 1 tab 08/10/22 22:06 08/11/22 21:10 Valsartan/Sacubitril 26/24mg Tab PO 09/09/22 22:05 1 tab BID DEB Administration Spironolactone 25 mg 08/11/22 09:00 08/11/22 08:55 Spironolactone 25 Mg Tab PO 09/10/22 08:59 25 mg DAILY DEB Administration Tamsulosin HCl 0.4 mg 08/11/22 09:00 08/12/22 08:55 Tamsulosin Hcl 0.4 Mg Cap PO 09/10/22 08:59 0.4 mg QAM DEB Administration NPO Date Last Intake of Fluids: 08/11/22 Time Last Intake of Fluids: 23:59 Date Last Intake of Solids: 08/11/22 Time Last Intake of Solids: 23:59 Past Medical History Medical History (Updated 08/12/22 @ 10:21 by Anupama Hensley DO) Acute bronchitis Acute ND anterior wall first episode care Acute pulmonary edema LULI (acute kidney injury) Ambulatory dysfunction Benign prostatic hyperplasia CAD (coronary artery disease) Chronic systolic heart failure Depressed mood Disequilibrium Elevated troponin I level Fever Frequent falls Hearing loss Hyperlipidemia Hypertension Hypomagnesemia Infected postoperative seroma Ischemic cardiomyopathy EF 25-29% 05/2022 Lab test negative for COVID-19 virus Male erectile disorder of organic origin Mitral regurgitation New onset left bundle branch block (LBBB) Paroxysmal atrial fibrillation Prediabetes Tinnitus Vitamin D deficiency Exercise / Class Metabolic Activity III < 4 Walking/Shop/Light housework Past Family History Family History Father Colorectal cancer Mother Cancer Brother Laryngeal cancer Sister Alzheimer disease Other No family history of adverse response to anesthesia No family history of bleeding disorder Denies family history of Ovarian cancer Prostate cancer Breast cancer Past Surgical History Surgical History (Updated 08/12/22 @ 10:22 by Anupama Hensley DO) History of cardiac cath History of coronary artery bypass graft x 3 02/10/22 @ [facility] [place] Lilian Hooper History of transurethral prostatectomy (09/14/12) Past Anesthesia History No Hx of Anesthesia Complications and No Family Hx of Anesthesia Complications History of PONV No Hx of PONV and No Hx of Motion Sickness Social History Smoking Status: Unknown if ever smoked tobacco type: smokeless tobacco Do You Dip or Chew Tobacco: No Hx Alcohol Use: Yes Alcohol type: beer alcohol intake frequency: a few times a month Hx Substance Use: No substance use type: does not use Physical Exam Vital Signs Last Vital Signs Temp 37.0 C 08/12/22 07:45 Pulse 68 08/12/22 07:45 Resp 18 08/12/22 07:45 BP 100/57 L 08/12/22 07:45 Pulse Ox 95 08/12/22 07:45 O2 Del Method 08/12/22 07:45 ENMT Mouth: + edentulous and + macroglossia; no TMJ abnormality Thyromental Distance: > or= 3.5 Finger Breadths Mallampati Class: IV Neck normal visual inspection and trachea midline; neck extension not limited Respiratory normal respiratory effort Auscultation: + diminished lung sounds, + crackles, + rhonchi and + wheezes Cardiovascular Rate/Rhythm: regular rate and regular rhythm Heart Sounds: no murmur Musculoskeletal Spine: normal cervical ROM Extremities: full ROM of extremities Neurologic moves all extremities Psychiatric Orientation: alert and oriented x 3 Testing Laboratory Results 08/11/22 05:35 08/12/22 05:13 08/10/22 17:59 Gram Stain - Final Leg Aerobic and Anaerobic Culture - Preliminary Gram negative bacilli 08/10/22 18:20 Aerobic Blood Culture - Preliminary Blood No growth in Aerobic bottle after 24 hours. Anaerobic Blood Culture - Preliminary No growth in Anaerobic bottle after 24 hours. 08/10/22 18:31 Aerobic Blood Culture - Preliminary Blood No growth in Aerobic bottle after 24 hours. Anaerobic Blood Culture - Preliminary No growth in Anaerobic bottle after 24 hours. 08/10/22 19:57 Gram Stain - Final Sputum, Expectorated Sputum Culture - Preliminary Light normal andrew present, final report to follow. Electrocardiogram Date: 08/02/22 Findings: + NSR @ (75 w/ 1st AVB and PACs) and + LBBB Chest X-Ray Date: 08/10/22 Findings: + atelectasis (mild bibasilar) and + cardiomegaly sternotomy noted Echocardiogram Date: 06/12/22 EF: 25-29% LV Function: dysfunctional (severely reduced) Other Findings: + atrial enlargement (LAD moderately enlarged) Valvular Disease: + MR (mild) mild TR Cardiac Catheterization Date: 02/09/22 M -heavily calcified, diffuse up to 95% disease extending into LAD LAD -heavily calcified proximally, 95% ostial, 90% proximal. Mid to distal vessel without significant disease and extends to apex. Provides partial collaterals to PDA. Medium D2 without disease. Circumflex -calcified, medium caliber, 98% ostial, 80% mid, large OM2 without significant disease. Distal vessel, OM 3, left PLB with BO II-III flow. RCA -dominant, heavily calcified, 100% earlymid chronic total occlusion. Distal vessel fills partially via right to right bridging collaterals. IABP placement: Due to acute heart failure and critical left main, three-vessel disease decision to place balloon pump. Right ROTOR BALANCER access under ultrasound guidance 8 Fr sheath placed Balloon pump placed to descending thoracic aorta IABP at 1:1 with MAPs to 70, augmentation to 100 mmHg. Right heart cath performed pt then tfrd for CABG
[2022-08-12] MEDS ORDERED: ALBUTEROL 0.5% NEB SOLN 2.5 MG/0.5 ML VIAL ONE (10:42)
[2022-08-12] MEDS ORDERED: PROPOFOL IV EMULSION 10 MG/ML 20 ML VIAL IV ONE (10:43)
[2022-08-12] MEDS ORDERED: KETAMINE 50 MG/5 ML SYRINGE ONE (10:43)
[2022-08-12] MEDS ORDERED: LIDOCAINE 2% MPF LOCAL 5 ML VIAL INFIL ONE (10:43)
[2022-08-12] MEDS ORDERED: IPRATROPIUM BROMIDE NEB SOLN 0.02% 2.5 ML VIAL ONE (10:43)
[2022-08-12] MEDS ORDERED: BUPIVACAINE/EPINEPHRINE 0.5% MPF 1:200,000 30 ML VIAL ONE (10:56)
[2022-08-12] MEDS ORDERED: ONDANSETRON INJ 2 MG/ML 2 ML VIAL ONE (11:28)
--- NOTE | 2022-08-12 11:41 | Post Operative Brief Note ---
Immediate Post Op Note v1 Date of Surgery August 12, 2022 Pre & Post Diagnosis Operation Date: 08/12/22 12:00 <No data on this case meets the specified criteria> I identified the patient and participated in the time-out.: Yes Procedure Operation Date: 08/12/22 12:00 <No data on this case meets the specified criteria> Surgeon Jeffry De La Garza MD Dope Pourer none Estimated Blood Loss 5 Findings Consistent with Post-Op Diagnosis
--- NOTE | 2022-08-12 12:15 | Operative Report (OR) ---
DATE OF SURGERY: 08/12/2002 PREOPERATIVE DIAGNOSIS: Left medial thigh deep abscess. POSTOPERATIVE DIAGNOSIS: Left medial thigh deep abscess. PROCEDURE PERFORMED: I and D of deep left medial thigh abscess. SURGEON: Jeffry De La Garza MD OPTICAL ADVISOR: None. ANESTHESIA: Monitored anesthetic care with 0.5% Marcaine with epinephrine local. ESTIMATED BLOOD LOSS: 5 mL. DRAINS: None. COMPLICATIONS: None. SPECIMENS: None. INDICATIONS FOR PROCEDURE: This is an 82-year-old male with a left thigh cellulitis associated with an abscess cavity. This was attempted to be drained with a stab incision in the ED, which was not matute ccessful. We will plan on opening this area up with an I and D. DESCRIPTION OF PROCEDURE: The patient was taken to the operating room and underwent excellent monito red anesthetic care. His left thigh was prepped and draped in normal sterile fashion. A transverse oblique incision was made along the previous stab incision of about 1.5 inches. This was taken down and entered the cavity. There was good amount of serous fluid with some purulence. Cultures were ta homer. The cavity was then irrigated out and suctioned clear. The cavity was then packed with Kerlix. There was minimal bleeding about 5 mL. Sterile dressing was applied. Marcaine 0.5% with epinephrin e local was used to create a local field block. He tolerated the procedure without complications, se nt to post-recovery for a period of observation and will be sent to the floor for the rest of his car e. Job ID: [id number]
--- NOTE | 2022-08-12 12:16 | Anesthesiology Progress Note ---
Date of Service August 12, 2022 Anesthesia Post Procedure Vital Signs Vital Signs: Temp Pulse Pulse Pulse Resp BP BP 08/12/22 12:10 36.4 C L 71 20 96/55 L 08/12/22 12:00 70 19 96/56 L 08/12/22 11:50 36.1 C L 71 20 89/51 L 08/12/22 07:45 37.0 C 68 18 100/57 L 08/12/22 07:31 85 08/12/22 07:27 84 16 08/12/22 05:10 36.7 C 77 20 129/84 08/11/22 22:02 87 08/11/22 22:00 08/11/22 22:44 36.9 C 97 H 18 102/65 08/11/22 20:18 70 16 08/11/22 19:27 36.5 C 85 20 113/68 08/11/22 14:00 69 08/11/22 16:06 36.5 C 62 19 108/61 08/11/22 15:55 68 16 Pulse Ox O2 Del Method O2 Flow Rate 08/12/22 12:10 96 Room Air 08/12/22 12:00 100 Oxymask 4 08/12/22 11:50 97 Oxymask 6 08/12/22 07:45 95 Room Air 08/12/22 07:31 08/12/22 07:27 98 Room Air 08/12/22 05:10 95 Room Air 08/11/22 22:02 08/11/22 22:00 Room Air 08/11/22 22:44 96 Room Air 08/11/22 20:18 95 Room Air 08/11/22 19:27 94 Room Air 08/11/22 14:00 08/11/22 16:06 96 Room Air 08/11/22 15:55 97 Room Air Pain Intensity Left Lower Leg: Pain Intensity: 6 Transfer of Care Handoff Completed per policy Notes Mental Status: alert / awake / arousable Patient Amnestic to Procedure: Yes Nausea / Vomiting: adequately controlled Pain: adequately controlled Airway Patency, RR, SpO2: stable & adequate BP & HR: stable & adequate Hydration State: stable & adequate Anesthetic Complications: no major complications apparent and Pt Satisfied with anesthetic care
[2022-08-12] MEDS: RIVAROXABAN 15 MG TAB PO SCH (16:33)
[2022-08-12] MEDS ORDERED: FUROSEMIDE 20 MG TAB PO ONE (18:50)
[2022-08-12] MEDS: dexAMETHasone 6 MG in SYRINGE 0 ML IV SCH (19:33)
[2022-08-12] MEDS: VALSARTAN/SACUBITRIL 26/24MG TAB PO SCH (20:48)
[2022-08-12] MEDS: MIRTAZAPINE TAB 15 MG TAB PO SCH (20:48)
--- NOTE | 2022-08-12 20:51 | Hospitalist Progress Note ---
Date of Service August 12, 2022 Assessment & Plan (1) Abscess of skin: Plan: left medial thigh. s/p I/D 08/08/22 in ER - culture not sent, rocephin given, doxy PO given at d/c. abscess did not improve. s/p I/D 08/10/22 in ER - culture sent. On cefepime/vanco since admission. Prelim culture - GNR. Follow that culture and today's intra-op culture -- may not need the vanco. Narrow the cefepime once cultures are final. Dr De La Garza today performed I & D in the OR. Appreciate his assistance. Serial exams. Follow cultures. (2) Acute bronchitis: Plan: Respiratory biofire surprisingly negative. [id number] clinical picture most c/w acute viral bronchitis. Cont tessalon TID scheduled. Cont mucinex 1200mg BID scheduled. Cont combivent 1 puff QID scheduled. Pulmonary edema could cause wheezing thus gave additional lasix 20mg PO x 1 today although additional diuresis yesterday had no clinical effect arguing this is viral bronchitis. Sputum cx negative. Due to severity of symptoms start IV steroids in form of dexamethasone 6mg daily. (3) Hypomagnesemia: Plan: repleted resolved (4) CAD (coronary artery disease): Plan: s/p 3 vessel CABG in January of this year, complicated by post-op a fib, ischemic cardiomyopathy, LBBB, HFrEF. Echo April 2022: EF 25-30% w mild-moderate MR. Continue Plavix, metoprolol, lasix. Hold Entresto - BPs low or low-normal. May need to hold his aldactone as well. Refuses statin therapy by report. No ischemic symptoms at this time. (5) Ischemic cardiomyopathy: Plan: Secondary CAD. Likely euvolemic at this time or possibly volume up slightly. Continue meds as above in #4. (6) Chronic systolic heart failure: Plan: EF 25-30% with mild MR. Dry weight 175 lb. Weight here approaching dry weight. Gave 20mg po lasix in addition to his usual diuretics. Repeat labs in am. Strict I/Os, daily standing weights. Follows with CHF clinic. (7) Paroxysmal atrial fibrillation: Plan: Isolated incident in January s/p CABG, d/c'd on Xarelto and metoprolol. Continue metoprolol. Hold xarelto for I/D procedure today. Likely resume tomorrow. (8) Benign prostatic hyperplasia: Plan: Continue Flomax, finasteride. No issues at this time. (9) Hearing loss: Plan: severe, b/l use dry Messagem[employer] board for communication purposes if necessary Plan spoke with pt's daughter, Mercedes, by phone ([phone]) extensive update given 08/11 Admission and Anticipated Discharge Date Admission Date: August 10, 2022 Subjective saw patient post- I&D of his left thigh abscess patient reports the left thigh pain is improved just minor discomfort from the procedure main complaint is ongoing cough and congestion with sputum production denies dyspnea but continues to wheeze eating well tele wnl overnight Review of Systems Review of Systems: gen - no fever cv - no cp, no orthopnea pulm - ongoing sputum production (yellow) GI - no nausea or emesis Physical Exam Physical Exam: gen - coughing, but no distress; awake/alert mouth - MMM ears - hearing impairment (severe) neck - no JVD heart - RRR, s1 s2, 2/6 systolic murmur LSB lungs - diffuse wheezing b/l all lung segments - no change from prior exam; no rales today; course BS b/l abd - minimally distended, BS+, NT, no HSM ext - trace edema left foot/ankle; no edema RLE; pulses b/l feet 2+ skin - left medial thigh - dressings in place from today's I&D procedure (I did not remove them); no cellulitis of any portion of the LLE Results & Data Results & Data ([facility]) Vital Signs (Past 12 Hours) Vital Signs Temp Pulse Pulse Pulse Resp BP Pulse Ox 08/12/22 19:24 37 C 64 18 95/55 L 93 08/12/22 19:49 82 18 96 08/12/22 16:27 36.9 C 94 H 16 114/65 94 08/12/22 15:12 66 16 97 08/12/22 13:27 36.6 C 82 20 120/69 94 08/12/22 13:24 80 08/12/22 12:30 36.3 C L 66 18 116/67 94 08/12/22 12:20 69 20 103/70 93 08/12/22 12:10 36.4 C L 71 20 96/55 L 96 08/12/22 12:00 70 19 96/56 L 100 08/12/22 11:50 36.1 C L 71 20 89/51 L 97 O2 Del Method O2 Flow Rate 08/12/22 19:24 Room Air 08/12/22 19:49 Room Air 08/12/22 16:27 Room Air 08/12/22 15:12 Room Air 08/12/22 13:27 Room Air 08/12/22 13:24 08/12/22 12:30 Room Air 08/12/22 12:20 Room Air 08/12/22 12:10 Room Air 08/12/22 12:00 Oxymask 4 08/12/22 11:50 Oxymask 6 Laboratory Results Laboratory Results - last 24 hr 08/12/22 08/12/22 05:13 05:13 Sodium 136 Potassium 3.8 Chloride 100 Carbon Dioxide 30 Anion Gap 6 BUN 17 Creatinine 1.24 Est Cr Clr Drug Dosing 47.4 Est GFR ( Amer) 62.4 Est GFR (Non-Af Amer) 53.8 BUN/Creatinine Ratio 13.7 Glucose 86 Calcium 8.6 Magnesium 1.9 Vancomycin Trough 11.0 Diagnostic Findings wound cx from 08/10 I&D procedure L thigh abscess - GNR wound cx intra-op today - pending blood cx's neg sputum cx neg PG Care Time/CCT Total # of Minutes Spent Total Time Spent with Patient: Total time spent is greater than 50% in coordination of care (as documented) at patient's floor/unit and/or counseling patient: Coding Level of Care Code 59269 Subseq Hosp Care Lvl 2 Diagnoses Abscess of skin L02.91 Acute bronchitis J20.9 Hypomagnesemia E83.42 CAD (coronary artery disease) I25.10 Ischemic cardiomyopathy I25.5 Chronic systolic heart failure I50.22 Paroxysmal atrial fibrillation I48.0 Benign prostatic hyperplasia N40.0 Hearing loss H91.90
[2022-08-13] MEDS: ALBUTEROL HFA 8 GM INHALER INH SCH ×3 (05:39→17:55)
[2022-08-13] MEDS: IPRATROPIUM BROMIDE HFA INHALER INH SCH ×3 (05:40→17:55)
[2022-08-13] MEDS: ISOSORBIDE DINITRATE 5 MG TAB PO SCH ×3 (06:22→16:19)
[2022-08-13] MEDS: VANCOMYCIN HCL 1,250 MG in SODIUM CHLORIDE 0.9% 500 ML IV SCH (06:22)
[2022-08-13] MEDS: CEFEPIME 2,000 MG in SYRINGE 0 ML IV SCH (06:22)
[2022-08-13] MEDS: BENZONATATE 100 MG CAPSULE PO SCH ×3 (08:40→21:23)
[2022-08-13] MEDS: POTASSIUM CHLORIDE 10 MEQ TABCR PO SCH (08:41)
[2022-08-13] MEDS: guaiFENesin 600 MG TABCR PO SCH ×2 (08:42→21:23)
[2022-08-13] MEDS: CLOPIDOGREL BISULFATE 75 MG TAB PO SCH (08:42)
[2022-08-13] MEDS: FINASTERIDE 5 MG TAB PO SCH (08:42)
[2022-08-13] MEDS: ADVANCED PROBIOTIC 1250 MG CAPSULE PO SCH (08:42)
[2022-08-13] MEDS: PANTOprazole 40 MG TAB PO SCH (08:42)
[2022-08-13] MEDS: METOPROLOL SUCC 25MG EXT REL TAB PO SCH (08:53)
[2022-08-13 10:18] LABS: Hematocrit (blood only) 34.4 % (40.1-51.0); Hemoglobin 11.5 g/dl (14.0-18.0); Mean Corpuscular Hemoglobin 30.6 pg (25.0-34.0); Mean Corpuscular Hgb Conc 33.4 g/dL (32.0-36.0); Mean Corpuscular Volume 91.5 fL (80.0-100.0); Mean Platelet Volume 9.6 fL (9.4-12.4); Platelet Count 260 K/uL (130-400); RDW Coefficient of Variation 13.6 % (11.5-14.5); Red Blood Count 3.76 M/uL (4.63-6.08); White Blood Count 11.09 K/ul (4.8-10.8)
[2022-08-13 10:39] LABS: BUN Creatinine Ratio 15.9 (10-20); Calcium 8.5 mg/dl (8.5-10.1); Creatinine Clr Calc Pharmacy 34.6 ml/min; Est GFR (African American) 42.6 ml/min; Est GFR (Non-African American) 36.7 ml/min; Potassium 4.4 mmol/L (3.5-5.1)
[2022-08-13] MEDS ORDERED: SODIUM CHLORIDE 0.9% 1000ML 250 ML IV ONE (11:11)
--- NOTE | 2022-08-13 11:32 | Surgery Progress Note ---
Date of Service August 13, 2022 Assessment & Plan (1) Abscess of skin: Plan: POD # 1 s/p Incision and drainage of left thigh abscess -afebrile, vss - mild leukocytosis Plan: Packing removed and small amount replaced Optifoam dressing applied WIll need daily packing changes Will likely need wound clinic follow-up continue medical management Dr. Dubose has seen and examined pt, agrees with above. Admission and Anticipated Discharge Date Admission Date: August 10, 2022 Subjective some soreness at incision site Physical Exam Constitutional: WD/WN, vitals as above no acute distress and not ill appearing Skin: no rashes, warm and dry Left thigh with dressing in place. Packing with bloody dried drainage. Packing removed. Wound without significant drainage. Psychiatric: Orientation: alert and oriented x 3 Results & Data ([facility]) Vital Signs (Past 12 Hours) Vital Signs Temp Pulse Pulse Resp BP BP Pulse Ox 08/13/22 11:27 36.3 C L 74 15 101/64 96 08/13/22 07:00 78 08/13/22 07:00 08/13/22 07:45 90/53 L 08/13/22 07:19 36.4 C L 76 14 90/53 L 94 08/13/22 02:46 36.7 C 60 18 91/56 L 93 08/13/22 01:03 99 H O2 Del Method 08/13/22 11:27 Room Air 08/13/22 07:00 08/13/22 07:00 Room Air 08/13/22 07:45 08/13/22 07:19 Room Air 08/13/22 02:46 Room Air 08/13/22 01:03 Laboratory Results 08/13/22 08/13/22 Range/Units 10:04 10:04 WBC 11.09 H (4.8-10.8) K/ul RBC 3.76 L (4.63-6.08) M/uL Hgb 11.5 L (14.0-18.0) g/dl Hct 34.4 L (40.1-51.0) % MCV 91.5 (80.0-100.0) fL MCH 30.6 (25.0-34.0) pg MCHC 33.4 (32.0-36.0) g/dL RDW Std Deviation 46.0 (36.4-46.3) fL RDW Coeff of Asiya 13.6 (11.5-14.5) % Plt Count 260 (130-400) K/uL MPV 9.6 (9.4-12.4) fL Sodium 136 (136-145) mmol/L Potassium 4.4 (3.5-5.1) mmol/L Chloride 103 (98-107) mmol/L Carbon Dioxide 26 (21-32) mmol/L Anion Gap 7 (3-11) BUN 27 H (6-23) mg/dl Creatinine 1.70 H D (0.6-1.4) mg/dl Est Cr Clr Drug Dosing 34.6 ml/min Est GFR ( Amer) 42.6 ml/min Est GFR (Non-Af Amer) 36.7 ml/min BUN/Creatinine Ratio 15.9 (10-20) Glucose 182 H (70-99(Fasting)) mg/dl Calcium 8.5 (8.5-10.1) mg/dl
[2022-08-13] MEDS: RIVAROXABAN 15 MG TAB PO SCH (16:19)
[2022-08-13] MEDS: dexAMETHasone 6 MG in SYRINGE 0 ML IV SCH (17:45)
[2022-08-13] MEDS ORDERED: CEFEPIME 1,000 MG in SYRINGE 0 ML IV SCH (21:00)
[2022-08-13] MEDS: ceFAZolin 2000MG 2,000 MG/15 ML SYR IV SCH (21:19)
[2022-08-13] MEDS: MIRTAZAPINE TAB 15 MG TAB PO SCH (21:23)
--- NOTE | 2022-08-13 21:26 | Hospitalist Progress Note ---
Date of Service August 13, 2022 Assessment & Plan (1) Abscess of skin: Plan: left medial thigh. s/p I/D 08/08/22 in ER - culture not sent, rocephin given, doxy PO given at d/c. abscess did not improve. s/p I/D 08/10/22 in ER - culture with klebsiella, nearly pansensitive. On cefepime/vanco since admission. s/p I/D in the OR on 08/[address] De La Garza. Intra-op culture with GNR - likely to be klebsiella. Stop cefepime. Stop vancomycin. Change to IV ancef. Once intra-op culture is final, and if no new pathogens, change to PO keflex. Appreciate gen surg assistance. Cont daily packing changes Will likely need wound clinic follow-up post discharge (2) LULI (acute kidney injury): Plan: baseline Cr 1 to 1.2 Cr today 1.7 likely 2nd to over-diuresis and low-normal BPs gave 250cc saline bolus today due to SBP of about 90 improved BPs with such HOLD aldactone HOLD lasix HOLD nitrates HOLD Entresto lower metoprolol succinate from 25mg to 12.5mg daily as BPs normalize and LULI resolves will add back his CHF meds slowly (3) Acute bronchitis: Plan: Respiratory biofire surprisingly negative. [id number] clinical picture most c/w acute viral bronchitis. Wheezing improved with institution of IV dexamethasone 6mg daily on 08/12 -- cont such Cont tessalon TID scheduled. Cont mucinex 1200mg BID scheduled. Cont combivent 1 puff QID scheduled. Pulmonary edema could cause wheezing - gave additional lasix over the weekend - creatinine has bumped and no clinical change with diuresis thus wheezing/symptoms all likely bronchitis only Sputum cx negative. (4) Hypomagnesemia: Plan: repleted resolved (5) CAD (coronary artery disease): Plan: s/p 3 vessel CABG in January of this year, complicated by post-op a fib, ischemic cardiomyopathy, LBBB, HFrEF. Echo April 2022: EF 25-30% w mild-moderate MR. Continue Plavix, metoprolol Hold diuretics today due to low BP and LULI Hold Entresto - BPs low or low-normal. Hold nitrates Refuses statin therapy by report. No ischemic symptoms at this time. (6) Ischemic cardiomyopathy: Plan: Secondary CAD. At this time he is mildly volume depleted due to over-diuresis. (7) Chronic systolic heart failure: Plan: EF 25-30% with mild MR. Dry weight 175 lb. Weight today is 173 lb and he has LULI c/w volume depletion. Hold diuretics, nitrates, Entresto today Gave 250cc bolus for intravascular volume depletion BP improved with such o2 sats wnl repeat labs am follows with CHF clinic (8) Paroxysmal atrial fibrillation: Plan: Isolated incident in January s/p CABG, d/c'd on Xarelto and metoprolol. Continue metoprolol. Cont Xarelto. (9) Benign prostatic hyperplasia: Plan: Hold Flomax today due to low BPs Resume when able Cont finasteride. No issues at this time. (10) Hearing loss: Plan: severe, b/l Plan spoke with pt's daughter, Mercedes, by phone ([phone]) extensive update given 08/11 and 08/13 progressing PT, OT monica dispo - likely home with HH but cont therapy due to mild weakness Admission and Anticipated Discharge Date Admission Date: August 10, 2022 Subjective minimal discomfort at I/D site he feels good overall his cough is improved he is eating well was weak with walking today but overall feels better telemetry stable overnight no new complaints Review of Systems Review of Systems: gen - no fevers cv - no orthopnea, no cp pulm - no dyspnea; cough/wheeze continues GI - no vomiting, no nausea Physical Exam Physical Exam: gen - looks much better today; talks loudly due to severe heari ng impairment mouth - MMM ears - hearing impairment (severe) neck - no JVD heart - RRR, s1 s2, 2/6 systolic murmur LSB lungs - mild wheezing b/l all lung segments - mildly improved from yesterday's e xam; no rales abd - minimally distended, BS+, NT, no HSM ext - no edema b/l; pulses b/l feet 2+ skin - left medial thigh - dressings lifted up - abscess site with central incision about 1.5cm in lengthy, packing in place; swelling, erythema ALL improved nicely; no cellulitis Results & Data Results & Data ([facility]) Vital Signs (Past 12 Hours) Vital Signs Temp Pulse Pulse Resp BP BP Pulse Ox 11/28/22 19:17 36.7 C 77 18 120/65 96 08/13/22 17:55 77 20 95 08/13/22 14:00 77 08/13/22 15:16 36.7 C 75 18 109/60 94 08/13/22 12:25 110/59 L 08/13/22 11:56 96/59 L 08/13/22 11:48 75 18 95 08/13/22 11:27 36.3 C L 74 15 101/64 96 O2 Del Method 08/13/22 19:17 Room Air 08/13/22 17:55 Room Air 08/13/22 14:00 08/13/22 15:16 Room Air 08/13/22 12:25 08/13/22 11:56 08/13/22 11:48 Room Air 08/13/22 11:27 Room Air Laboratory Results Laboratory Results - last 24 hr 08/13/22 08/13/22 10:04 10:04 WBC 11.09 H RBC 3.76 L Hgb 11.5 L Hct 34.4 L MCV 91.5 MCH 30.6 MCHC 33.4 RDW Std Deviation 46.0 RDW Coeff of Asiya 13.6 Plt Count 260 MPV 9.6 Sodium 136 Potassium 4.4 Chloride 103 Carbon Dioxide 26 Anion Gap 7 BUN 27 H Creatinine 1.70 H D Est Cr Clr Drug Dosing 34.6 Est GFR ( Amer) 42.6 Est GFR (Non-Af Amer) 36.7 BUN/Creatinine Ratio 15.9 Glucose 182 H Calcium 8.5 PG Care Time/CCT Total # of Minutes Spent Total Time Spent with Patient: Total time spent is greater than 50% in coordination of care (as documented) at patient's floor/unit and/or counseling patient: Coding Level of Care Code 83568 Subseq Hosp Care Lvl 3 Diagnoses Abscess of skin L02.91 LULI (acute kidney injury) N17.9 Acute bronchitis J20.9 Hypomagnesemia E83.42 CAD (coronary artery disease) I25.10 Ischemic cardiomyopathy I25.5 Chronic systolic heart failure I50.22 Paroxysmal atrial fibrillation I48.0 Benign prostatic hyperplasia N40.0 Hearing loss H91.90
[2022-08-14] MEDS: ceFAZolin 2000MG 2,000 MG/15 ML SYR IV SCH ×2 (04:18→11:36)
[2022-08-14] MEDS: IPRATROPIUM BROMIDE HFA INHALER INH SCH ×2 (05:03→20:06)
[2022-08-14] MEDS: ALBUTEROL HFA 8 GM INHALER INH SCH ×2 (05:03→20:06)
[2022-08-14] MEDS ORDERED: VANCOMYCIN LEVEL ONE (05:30)
[2022-08-14] MEDS: guaiFENesin 600 MG TABCR PO SCH ×2 (08:12→21:25)
[2022-08-14] MEDS: ADVANCED PROBIOTIC 1250 MG CAPSULE PO SCH (08:12)
[2022-08-14] MEDS: BENZONATATE 100 MG CAPSULE PO SCH ×3 (08:12→21:25)
[2022-08-14] MEDS: FINASTERIDE 5 MG TAB PO SCH (08:13)
[2022-08-14] MEDS: PANTOprazole 40 MG TAB PO SCH (08:13)
[2022-08-14] MEDS: POTASSIUM CHLORIDE 10 MEQ TABCR PO SCH (08:13)
[2022-08-14] MEDS: CLOPIDOGREL BISULFATE 75 MG TAB PO SCH (08:13)
[2022-08-14] MEDS: METOPROLOL SUCC 25MG EXT REL TAB PO SCH (08:14)
[2022-08-14] MEDS: ISOSORBIDE DINITRATE 5 MG TAB PO SCH ×3 (08:14→16:53)
[2022-08-14 08:46] LABS: Hemoglobin 12.9 g/dl (14.0-18.0); Mean Corpuscular Hemoglobin 30.6 pg (25.0-34.0); Mean Corpuscular Hgb Conc 33.1 g/dL (32.0-36.0); Mean Corpuscular Volume 92.4 fL (80.0-100.0); Mean Platelet Volume 9.7 fL (9.4-12.4); Platelet Count 319 K/uL (130-400); RDW Coefficient of Variation 13.9 % (11.5-14.5); RDW Standard Deviation 46.9 fL (36.4-46.3); Red Blood Count 4.22 M/uL (4.63-6.08); White Blood Count 17.03 K/ul (4.8-10.8)
[2022-08-14 09:11] LABS: BUN Creatinine Ratio 23.2 (10-20); Calcium 9.4 mg/dl (8.5-10.1); Creatinine Clr Calc Pharmacy 37.9 ml/min; Est GFR (African American) 47.6 ml/min; Est GFR (Non-African American) 41.1 ml/min; Potassium 4.4 mmol/L (3.5-5.1)
[2022-08-14 10:24] LABS: Estimated Average Glucose 120 mg/dl; Hemoglobin A1C 5.8 % (4.5-5.6)
[2022-08-14] MEDS ORDERED: dexAMETHasone 4 MG TAB PO ONE (15:13)
--- NOTE | 2022-08-14 15:15 | Hospitalist Progress Note ---
Date of Service August 14, 2022 Assessment & Plan (1) Abscess of skin: Plan: resolved. left medial thigh. s/p I/D 08/08/22 in ER - culture not sent, rocephin given, doxy PO given at d/c. unfortunately the abscess did not improve. s/p I/D 08/10/22 in ER - culture with klebsiella, nearly pansensitive. Previously on cefepime/vanco since admission. s/p I/D in the OR on 08/[address] De La Garza. Intra-op culture with GNR - likely to be klebsiella. Stopped cefepime and vanco on 08/13. Changed to IV ancef 08/13. Since the abscess area looks great we can d/c IV ancef and change to keflex 500mg TID today to complete his abx course. f/u on intra-op final culture tomorrow. Appreciate gen surg assistance. Cont daily packing changes Will likely need wound clinic follow-up post discharge of note - mild wbc elevation likely due to IV steroids as opposed to the ab scess. (2) LULI (acute kidney injury): Plan: baseline Cr 1 to 1.2 Peak Cr 1.7 today 1.5 likely 2nd to over-diuresis and low-normal BPs cont to HOLD aldactone, lasix, Entresto can continue metoprolol succinate at lower dose of 12.5mg daily (was on 25mg at home) cont nitrates as BPs normalize and LULI resolves will add back his CHF meds slowly (3) Acute bronchitis: Plan: IMPROVED Respiratory biofire surprisingly negative. [id number] clinical picture most c/w acute viral bronchitis. Wheezing improved with institution of IV dexamethasone 6mg daily on 08/12 Can d/c IV dex today Change to PO dexamethasone 4mg daily starting tomorrow and wean over a few more days. Cont tessalon TID scheduled. Cont mucinex 1200mg BID scheduled. Cont combivent 1 puff QID scheduled. Pulmonary edema could cause wheezing - gave additional lasix over the weekend - creatinine bumped with such and he had no clinical change with diuresis thus wheezing/symptoms all likely bronchitis only Sputum cx negative. (4) Hypomagnesemia: Plan: repleted resolved (5) CAD (coronary artery disease): Plan: s/p 3 vessel CABG in January of this year, complicated by post-op a fib, ischemic cardiomyopathy, LBBB, HFrEF. Echo April 2022: EF 25-30% w mild-moderate MR. Continue Plavix, metoprolol, nitrates Hold diuretics again today due to low-normal BPs at times and LULI Hold Entresto - BPs low or low-normal. Refuses statin therapy by report. No ischemic symptoms at this time. (6) Ischemic cardiomyopathy: Plan: Secondary CAD. (7) Chronic systolic heart failure: Plan: EF 25-30% with mild MR. Dry weight 175 lb. Developed LULI 08/13 from over-diuresis Thus, continuing to Hold diuretics Holding Entresto another day appears compensated/euvolemic today repeat labs am follows with CHF clinic (8) Paroxysmal atrial fibrillation: Plan: Isolated incident in January s/p CABG, d/c'd on Xarelto and metoprolol. Continue metoprolol albeit at lower dose of 12.5mg daily (due to recent low BPs). Cont Xarelto. (9) Benign prostatic hyperplasia: Plan: Holding Flomax 1 more day; likely can resume 08/15 Cont finasteride. No issues at this time. Voiding fine. (10) Hearing loss: Plan: severe, b/l Plan spoke with pt's daughter, Mercedes, by phone ([phone]) extensive update given 08/11 and 08/13 suspect he can d/c home tomorrow if creatinine continues to improve he had PT/OT yesterday but none today; did fair with therapy on 08/13 would ask PT/OT to see on 08/15 and if he does well can d/c home Admission and Anticipated Discharge Date Admission Date: August 10, 2022 Subjective tele stable overnight patient feeling "real good" today eating well breathing is comfortable cough/wheezing improved left leg pain resolved no new complaints Review of Systems Review of Systems: gen - no fevers cv - no orthopnea pulm - no sputum GI - no nausea/emesis/constipation Physical Exam Physical Exam: gen - looks great, laying in bed comfortably, NAD ears - hearing impairment (severe) neck - no JVD heart - RRR, s1 s2, 2/6 systolic murmur LSB lungs - mild end-exp wheezing b/l with improved airation; no rales abd - minimally distended, BS+, NT, no HSM ext - no edema RLE; trace edema left foot/ankle; pulses b/l feet 2+ skin - left medial thigh - dressings lifted up - abscess site with central incision about 1.5cm in length, packing in place; swelling, erythema ALL resolved; no surrounding cellulitis Results & Data Results & Data ([facility]) Vital Signs (Past 12 Hours) Vital Signs Temp Pulse Pulse Resp BP BP Pulse Ox 08/14/22 11:04 36.9 C 82 18 95/51 L 95 08/14/22 07:45 08/14/22 07:41 37.0 C 83 18 93/55 L 95 08/14/22 07:00 68 08/14/22 03:35 36.5 C 76 18 94/51 L 96 O2 Del Method 08/14/22 11:04 Room Air 08/14/22 07:45 Room Air 08/14/22 07:41 Room Air 08/14/22 07:00 08/14/22 03:35 Room Air Laboratory Results Laboratory Results - last 24 hr 08/14/22 08/14/22 08/14/22 08:24 08:24 08:24 WBC 17.03 H RBC 4.22 L Hgb 12.9 L Hct 39.0 L MCV 92.4 MCH 30.6 MCHC 33.1 RDW Std Deviation 46.9 H RDW Coeff of Asiya 13.9 Plt Count 319 MPV 9.7 Sodium 138 Potassium 4.4 Chloride 104 Carbon Dioxide 27 Anion Gap 7 BUN 36 H Creatinine 1.55 H Est Cr Clr Drug Dosing 37.9 Est GFR ( Amer) 47.6 Est GFR (Non-Af Amer) 41.1 BUN/Creatinine Ratio 23.2 H Glucose 111 H Estimat Average Glucose 120 Hemoglobin A1c 5.8 H Calcium 9.4 Diagnostic Findings intra-op wound culture with GNR previous wound culture near-pansensitive klebsiella PG Care Time/CCT Total # of Minutes Spent Total Time Spent with Patient: Total time spent is greater than 50% in coordination of care (as documented) at patient's floor/unit and/or counseling patient: Coding Level of Care Code 51750 Subseq Hosp Care Lvl 2 Diagnoses Abscess of skin L02.91 LULI (acute kidney injury) N17.9 Acute bronchitis J20.9 Hypomagnesemia E83.42 CAD (coronary artery disease) I25.10 Ischemic cardiomyopathy I25.5 Chronic systolic heart failure I50.22 Paroxysmal atrial fibrillation I48.0 Benign prostatic hyperplasia N40.0 Hearing loss H91.90
[2022-08-14] MEDS: RIVAROXABAN 15 MG TAB PO SCH (16:54)
[2022-08-14] MEDS: MIRTAZAPINE TAB 15 MG TAB PO SCH (21:25)
[2022-08-14] MEDS: cephALEXin 500 MG CAP PO SCH (22:03)
[2022-08-15 06:54] LABS: Hematocrit (blood only) 33.5 % (40.1-51.0); Hemoglobin 11.2 g/dl (14.0-18.0); Mean Corpuscular Hemoglobin 30.6 pg (25.0-34.0); Mean Corpuscular Hgb Conc 33.4 g/dL (32.0-36.0); Mean Corpuscular Volume 91.5 fL (80.0-100.0); Mean Platelet Volume 9.7 fL (9.4-12.4); Platelet Count 305 K/uL (130-400); RDW Coefficient of Variation 13.8 % (11.5-14.5); RDW Standard Deviation 46.8 fL (36.4-46.3); Red Blood Count 3.66 M/uL (4.63-6.08); White Blood Count 13.81 K/ul (4.8-10.8)
[2022-08-15] MEDS: IPRATROPIUM BROMIDE HFA INHALER INH SCH ×2 (07:19→19:14)
[2022-08-15] MEDS: ALBUTEROL HFA 8 GM INHALER INH SCH ×2 (07:22→19:14)
[2022-08-15 07:27] LABS: Calcium 8.8 mg/dl (8.5-10.1); Creatinine Clr Calc Pharmacy 48.2 ml/min; Est GFR (African American) 63.6 ml/min; Est GFR (Non-African American) 54.9 ml/min; Potassium 4.4 mmol/L (3.5-5.1)
[2022-08-15] MEDS: cephALEXin 500 MG CAP PO SCH ×2 (07:54→20:53)
[2022-08-15] MEDS: ISOSORBIDE DINITRATE 5 MG TAB PO SCH ×3 (07:54→16:32)
[2022-08-15] MEDS: dexAMETHasone 4 MG TAB PO SCH (07:55)
[2022-08-15] MEDS: CLOPIDOGREL BISULFATE 75 MG TAB PO SCH (07:55)
[2022-08-15] MEDS: ADVANCED PROBIOTIC 1250 MG CAPSULE PO SCH (07:55)
[2022-08-15] MEDS: POTASSIUM CHLORIDE 10 MEQ TABCR PO SCH (07:55)
[2022-08-15] MEDS: METOPROLOL SUCC 25MG EXT REL TAB PO SCH (07:55)
[2022-08-15] MEDS: guaiFENesin 600 MG TABCR PO SCH ×2 (07:55→20:53)
[2022-08-15] MEDS: BENZONATATE 100 MG CAPSULE PO SCH ×3 (07:56→20:53)
[2022-08-15] MEDS: FINASTERIDE 5 MG TAB PO SCH (07:56)
--- NOTE | 2022-08-15 08:07 | Hospitalist Progress Note ---
Date of Service August 15, 2022 Assessment & Plan (1) Abscess of skin: Plan: resolved. left medial thigh. s/p I/D 08/08/22 in ER - culture not sent, rocephin given, doxy PO given at d/c. unfortunately the abscess did not improve. s/p I/D 08/10/22 in ER - culture with klebsiella, nearly pansensitive. Previously on cefepime/vanco since admission. s/p I/D in the OR on 08/[address] De La Garza. Intra-op culture with GNR - likely to be klebsiella. Stopped cefepime and vanco on 08/13. Changed to IV ancef 08/13. Since the abscess area looks great we can d/c IV ancef and change to keflex 500mg TID today to complete his abx course. f/u on intra-op final culture --> [place] Appreciate gen surg assistance. Cont daily packing changes Will likely need wound clinic follow-up post discharge of note - mild wbc elevation likely due to IV steroids as opposed to the abscess. 08/15 --> asking PT to eval this morning Will need to complete course of keflex at d/c for thigh abscess, wound clinic for follow up Cr almost back to normal with diuretics held, weight stable. could also have had acute bump w/ hypotension/atn? when SBP dropped to 70s after IV lasix for volume overload on 08/11-08/12 --> did decrease metoprolol to 12.5mg daily (previously on 25mg at home) Initially was planning for d/c but given delicate balance/CHF w/ low EF and prior cardiac meds placed on hold, will keep overnight, resume his entresto for today, if stable can resume spironolactone/lasix tomorrow vs Saturday (2) LULI (acute kidney injury): Plan: baseline Cr 1 to 1.2 Peak Cr 1.7 today 1.5 likely 2nd to over-diuresis and low-normal BPs Placed aldactone, lasix, Entresto on hold Continued metoprolol at reduced 12.5mg (send new rx at d/c), nitrates BP stable, Cr improved to 1.24 and resumed entresto for today Will continue to hold aldactone/lasix for now and monitor BP/BMP on repeat (3) Acute bronchitis: Plan: IMPROVED Respiratory biofire surprisingly negative. [id number] clinical picture most c/w acute viral bronchitis. Wheezing improved with institution of IV dexamethasone 6mg daily on 08/12, d/c after dose 08/14 Cont tessalon TID scheduled. Cont mucinex 1200mg BID scheduled. Cont combivent 1 puff QID scheduled. Pulmonary edema could cause wheezing - gave additional lasix over the weekend - creatinine bumped with such and he had no clinical change with diuresis thus wheezing/symptoms all likely bronchitis only Sputum cx negative. Changed to PO dexamethasone 4mg daily 08/15 (day 3), wean over next couple days, consider decrease by 1mg QOD? vs complete course w/ another 2 days of 4 mg? 93% on RA (4) Hypomagnesemia: Plan: repleted resolved (5) CAD (coronary artery disease): Plan: s/p 3 vessel CABG in January of this year, complicated by post-op a fib, ischemic cardiomyopathy, LBBB, HFrEF. Echo April 2022: EF 25-30% w mild-moderate MR. Continue Plavix, metoprolol, nitrates Hold diuretics again today due to low-normal BPs at times and LULI Held Entresto - BPs low--> RESUMED 08/15, possible resume diuretics aldactone/lasix in AM pending eval Refuses statin therapy by report. No ischemic symptoms at this time. (6) Ischemic cardiomyopathy: Plan: Secondary CAD. (7) Chronic systolic heart failure: Plan: EF 25-30% with mild MR. Dry weight 175 lb. Developed LULI 08/13 from over-diuresis Thus, continued to Hold diuretics currently 177.3lb, entresto to resume as above appears compensated/euvolemic today repeat labs am follows with CHF clinic-- will need f/u CHF clinic at d/c Monitor I&O, daily weights (8) Paroxysmal atrial fibrillation: Plan: Isolated incident in January s/p CABG, d/c'd on Xarelto and metoprolol. Continue metoprolol albeit at lower dose of 12.5mg daily (due to recent low BPs). Cont Xarelto. (9) Benign prostatic hyperplasia: Plan: Holding Flomax 1 more day; likely can resume this evening if BP remain stable w/ entresto resumed as above Cont finasteride. No issues at this time. Voiding fine. (10) Hearing loss: Plan: severe, b/l Plan spoke with pt's daughter, Mercedes, by phone ([phone]) extensive update given 08/11 and 08/13 suspect he can d/c home tomorrow if creatinine continues to improve /BP stable w/ entrestro resumed. Monitor/resume aldatone/spironolactone as able he had PT/OT yesterday but none today; did fair with therapy on 08/13 . asked to have PT eval again today CM assisting w/ wound follow up Likely d/c 08/16 Admission and Anticipated Discharge Date Admission Date: August 10, 2022 Subjective evaluated this morning around lunch, very hard of hearing. 2x2 fell off dressing this morning, packing intact kidney function improved still has cough, but states is improving packing to be changed today, Cm working on getting wound care follow up does endorse dizziness at times (chronic issue) but improved. BPs improved, planning to resume his keeping overnight to ensure kidney function/BP as resuming cardiac meds to prevent readmission Review of Systems Review of Systems: All systems reviewed & are unremarkable except as noted in HPI & below Physical Exam Physical Exam: gen - looks great, sitting up in chair, NAD ears - hearing impairment (severe) neck - no JVD heart - RRR, s1 s2, 2/6 systolic murmur LSB lungs - faint end-exp wheezing b/l with improved aeration; no rales, on room air abd - minimally distended (less), BS+, NT, no HSM ext - no edema RLE; trace edema left foot/ankle; pulses b/l feet 2+ skin - left medial thigh - dressings lifted up - abscess site with central incision about 1.5cm in length, packing in place; swelling, erythema ALL resolved; no surrounding cellulitis, angelia pad loosening (RN to change) Results & Data Results & Data ([facility]) Vital Signs (Past 12 Hours) Vital Signs Temp Pulse Pulse Resp BP Pulse Ox O2 Del Method 08/15/22 07:22 78 18 96 Room Air 08/15/22 07:02 58 L 08/15/22 02:56 36.4 C L 56 L 18 116/65 96 Room Air 08/15/22 00:06 Room Air 08/14/22 23:35 82 08/14/22 22:52 36.7 C 69 18 110/58 L 95 Room Air 08/14/22 20:06 76 18 96 Room Air Laboratory Results 08/15/22 08/15/22 08/14/22 Range/Units 06:11 06:11 08:24 WBC 13.81 H (4.8-10.8) K/ul RBC 3.66 L (4.63-6.08) M/uL Hgb 11.2 L (14.0-18.0) g/dl Hct 33.5 L (40.1-51.0) % MCV 91.5 (80.0-100.0) fL MCH 30.6 (25.0-34.0) pg MCHC 33.4 (32.0-36.0) g/dL RDW Std Deviation 46.8 H (36.4-46.3) fL RDW Coeff of Asiya 13.8 (11.5-14.5) % Plt Count 305 (130-400) K/uL MPV 9.7 (9.4-12.4) fL Sodium 137 (136-145) mmol/L Potassium 4.4 (3.5-5.1) mmol/L Chloride 106 (98-107) mmol/L Carbon Dioxide 25 (21-32) mmol/L Anion Gap 6 (3-11) BUN 39 H (6-23) mg/dl Creatinine 1.22 D (0.6-1.4) mg/dl Est Cr Clr Drug Dosing 48.2 ml/min Est GFR ( Amer) 63.6 ml/min Est GFR (Non-Af Amer) 54.9 ml/min BUN/Creatinine Ratio 32.0 H (10-20) Glucose 122 H (70-99(Fasting)) mg/dl Estimat Average Glucose 120 mg/dl Hemoglobin A1c 5.8 H (4.5-5.6) % Calcium 8.8 (8.5-10.1) mg/dl 08/14/22 08/14/22 Range/Units 08:24 08:24 WBC 17.03 H (4.8-10.8) K/ul RBC 4.22 L (4.63-6.08) M/uL Hgb 12.9 L (14.0-18.0) g/dl Hct 39.0 L (40.1-51.0) % MCV 92.4 (80.0-100.0) fL MCH 30.6 (25.0-34.0) pg MCHC 33.1 (32.0-36.0) g/dL RDW Std Deviation 46.9 H (36.4-46.3) fL RDW Coeff of Asiya 13.9 (11.5-14.5) % Plt Count 319 (130-400) K/uL MPV 9.7 (9.4-12.4) fL Sodium 138 (136-145) mmol/L Potassium 4.4 (3.5-5.1) mmol/L Chloride 104 (98-107) mmol/L Carbon Dioxide 27 (21-32) mmol/L Anion Gap 7 (3-11) BUN 36 H (6-23) mg/dl Creatinine 1.55 H (0.6-1.4) mg/dl Est Cr Clr Drug Dosing 37.9 ml/min Est GFR ( Amer) 47.6 ml/min Est GFR (Non-Af Amer) 41.1 ml/min BUN/Creatinine Ratio 23.2 H (10-20) Glucose 111 H (70-99(Fasting)) mg/dl Estimat Average Glucose mg/dl Hemoglobin A1c (4.5-5.6) % Calcium 9.4 (8.5-10.1) mg/dl PG Care Time/CCT Total # of Minutes Spent Total Time Spent with Patient: Total time spent is greater than 50% in coordination of care (as documented) at patient's floor/unit and/or counseling patient: Coding Level of Care Code 18500 Subseq Hosp Care Lvl 3 Diagnoses Abscess of skin L02.91 LULI (acute kidney injury) N17.9 Acute bronchitis J20.9 Hypomagnesemia E83.42 CAD (coronary artery disease) I25.10 Ischemic cardiomyopathy I25.5 Chronic systolic heart failure I50.22 Paroxysmal atrial fibrillation I48.0 Benign prostatic hyperplasia N40.0 Hearing loss H91.90
[2022-08-15] MEDS: PANTOprazole 40 MG TAB PO SCH (08:23)
[2022-08-15] MEDS: RIVAROXABAN 15 MG TAB PO SCH (16:32)
[2022-08-15] MEDS: VALSARTAN/SACUBITRIL 26/24MG TAB PO SCH (20:52)
[2022-08-15] MEDS: MIRTAZAPINE TAB 15 MG TAB PO SCH (20:53)
[2022-08-16] MEDS: IPRATROPIUM BROMIDE HFA INHALER INH SCH (05:19)
[2022-08-16] MEDS: ALBUTEROL HFA 8 GM INHALER INH SCH (05:20)
[2022-08-16 06:37] LABS: Hematocrit (blood only) 33.3 % (40.1-51.0); Hemoglobin 11.1 g/dl (14.0-18.0); Mean Corpuscular Hemoglobin 30.4 pg (25.0-34.0); Mean Corpuscular Hgb Conc 33.3 g/dL (32.0-36.0); Mean Corpuscular Volume 91.2 fL (80.0-100.0); Mean Platelet Volume 9.7 fL (9.4-12.4); Platelet Count 345 K/uL (130-400); RDW Coefficient of Variation 13.9 % (11.5-14.5); RDW Standard Deviation 46.5 fL (36.4-46.3); Red Blood Count 3.65 M/uL (4.63-6.08)
[2022-08-16 07:04] LABS: BUN Creatinine Ratio 38.3 (10-20); Est GFR (African American) 74.5 ml/min; Est GFR (Non-African American) 64.3 ml/min; Magnesium 1.8 mg/dl (1.7-2.4); Potassium 4.3 mmol/L (3.5-5.1)
[2022-08-16] MEDS: guaiFENesin 600 MG TABCR PO SCH (08:01)
[2022-08-16] MEDS: ADVANCED PROBIOTIC 1250 MG CAPSULE PO SCH (08:01)
[2022-08-16] MEDS: VALSARTAN/SACUBITRIL 26/24MG TAB PO SCH (08:01)
[2022-08-16] MEDS: BENZONATATE 100 MG CAPSULE PO SCH ×2 (08:01→11:01)
[2022-08-16] MEDS: CLOPIDOGREL BISULFATE 75 MG TAB PO SCH (08:01)
[2022-08-16] MEDS: cephALEXin 500 MG CAP PO SCH (08:01)
[2022-08-16] MEDS: ISOSORBIDE DINITRATE 5 MG TAB PO SCH ×2 (08:02→11:01)
[2022-08-16] MEDS: dexAMETHasone 4 MG TAB PO SCH (08:02)
[2022-08-16] MEDS: FINASTERIDE 5 MG TAB PO SCH (08:02)
[2022-08-16] MEDS: METOPROLOL SUCC 25MG EXT REL TAB PO SCH (08:02)
[2022-08-16] MEDS: PANTOprazole 40 MG TAB PO SCH (08:02)
--- NOTE | 2022-08-16 08:24 | Hospitalist Progress Note ---
Date of Service August 16, 2022 Assessment & Plan (1) Abscess of skin: Plan: resolved. left medial thigh. s/p I/D 08/08/22 in ER - culture not sent, rocephin given, doxy PO given at d/c. unfortunately the abscess did not improve. s/p I/D 08/10/22 in ER - culture with klebsiella, nearly pansensitive. Previously on cefepime/vanco since admission. s/p I/D in the OR on 08/[address] De La Garza. Intra-op culture with GNR - likely to be klebsiella. Stopped cefepime and vanco on 08/13. Changed to IV ancef 08/13. Since the abscess area looks great we can d/c IV ancef and change to keflex 500mg TID today to complete his abx course. f/u on intra-op final culture --> [place] Appreciate gen surg assistance. Cont daily packing changes Will likely need wound clinic follow-up post discharge of note - mild wbc elevation likely due to IV steroids as opposed to the abscess. 08/15 --> asking PT to eval this morning Will need to complete course of keflex at d/c for thigh abscess, wound clinic for follow up Cr almost back to normal with diuretics held, weight stable. could also have had acute bump w/ hypotension/atn? when SBP dropped to 70s after IV Lasix for volume overload on 08/11-08/12 --> did decrease metoprolol to 12.5mg daily (previously on 25mg at home) Initially was planning for d/c but given delicate balance/CHF w/ low EF and prior cardiac meds placed on hold, will keep overnight, resume his Entresto for today, if stable can resume spironolactone/lasix tomorrow vs Thursday 08/16 --> Planning for d/c today. Metoprolol reduced to 12.5mg daily Discussed with daughter last night, they had been using Lasix QOD at home. Instructed to hold/monitor weights, did resume Entresto last evening and BP stable. Weight currently 167lb in system. Would continue to hold Aldactone/Lasix at discharge, monitor weights. Resume Aldactone possibly tomorrow? Will message CHF clinic [place] for coordination of care at d/c (2) LULI (acute kidney injury): Plan: baseline Cr 1 to 1.2 Peak Cr 1.7 today 1.5 likely 2nd to over-diuresis and low-normal BPs Placed aldactone, lasix, Entresto on hold Continued metoprolol at reduced 12.5mg (send new rx at d/c), nitrates BP stable, Cr improved to 1.24 and resumed entresto for today Will continue to hold aldactone/lasix for now and monitor BP/BMP on repeat (3) Acute bronchitis: Plan: IMPROVED Respiratory biofire surprisingly negative. [id number] clinical picture most c/w acute viral bronchitis. Wheezing improved with institution of IV dexamethasone 6mg daily on 08/12, d/c after dose 08/14 Cont tessalon TID scheduled. Cont mucinex 1200mg BID scheduled. Cont combivent 1 puff QID scheduled. Pulmonary edema could cause wheezing - gave additional lasix over the weekend - creatinine bumped with such and he had no clinical change with diuresis thus wheezing/symptoms all likely bronchitis only Sputum cx negative. Changed to PO dexamethasone 4mg daily 08/15 (day 3), wean over next couple days, consider decrease by 1mg QOD? vs complete course w/ another 2 days of 4 mg? 93% on RA (4) Hypomagnesemia: Plan: repleted resolved (5) CAD (coronary artery disease): Plan: s/p 3 vessel CABG in January of this year, complicated by post-op a fib, ischemic cardiomyopathy, LBBB, HFrEF. Echo April 2022: EF 25-30% w mild-moderate MR. Continue Plavix, metoprolol, nitrates Hold diuretics again today due to low-normal BPs at times and LULI Held Entresto - BPs low--> RESUMED 08/15, possible resume diuretics aldactone/lasix in AM pending eval Refuses statin therapy by report. No ischemic symptoms at this time. (6) Ischemic cardiomyopathy: Plan: Secondary CAD. (7) Chronic systolic heart failure: Plan: EF 25-30% with mild MR. Dry weight 175 lb. Developed LULI 08/13 from over-diuresis Thus, continued to Hold diuretics currently 177.3lb, entresto to resume as above appears compensated/euvolemic today repeat labs am follows with CHF clinic-- will need f/u CHF clinic at d/c Monitor I&O, daily weights (8) Paroxysmal atrial fibrillation: Plan: Isolated incident in January s/p CABG, d/c'd on Xarelto and metoprolol. Continue metoprolol albeit at lower dose of 12.5mg daily (due to recent low BPs). Cont Xarelto. (9) Benign prostatic hyperplasia: Plan: Holding Flomax 1 more day; likely can resume this evening if BP remain stable w/ entresto resumed as above Cont finasteride. No issues at this time. Voiding fine. (10) Hearing loss: Plan: severe, b/l (11) B12 deficiency: (12) Folate deficiency: Plan spoke with pt's daughter, Mercedes, by phone ([phone]) extensive update given 08/11 and 08/13 suspect he can d/c home tomorrow if creatinine continues to improve /BP stable w/ entrestro resumed. Monitor/resume aldatone/spironolactone as able he had PT/OT yesterday but none today; did fair with therapy on 08/13 . asked to have PT eval again today CM assisting w/ wound follow up Likely d/c 08/16 Admission and Anticipated Discharge Date Admission Date: August 10, 2022 Results & Data Results & Data ([facility]) Vital Signs (Past 12 Hours) Vital Signs Temp Pulse Pulse Resp BP Pulse Ox O2 Del Method 08/16/22 06:54 61 08/16/22 05:20 78 16 96 Room Air 08/16/22 03:03 37.0 C 57 L 16 119/68 95 Room Air 08/15/22 23:26 60 08/15/22 22:52 36.8 C 69 18 130/69 97 Room Air 08/15/22 21:08 Room Air PG Care Time/CCT Total # of Minutes Spent Total Time Spent with Patient: Total time spent is greater than 50% in coordination of care (as documented) at patient's floor/unit and/or counseling patient: Coding Diagnoses Abscess of skin L02.91 LULI (acute kidney injury) N17.9 Acute bronchitis J20.9 Hypomagnesemia E83.42 CAD (coronary artery disease) I25.10 Ischemic cardiomyopathy I25.5 Chronic systolic heart failure I50.22 Paroxysmal atrial fibrillation I48.0 Benign prostatic hyperplasia N40.0 Hearing loss H91.90 B12 deficiency E53.8 Folate deficiency E53.8
[2022-08-16] MEDS ORDERED: FOLIC ACID 400 MCG TAB PO SCH (09:00)
[2022-08-16] MEDS ORDERED: CYANOCOBALAMIN 1000 MCG/ML VIAL IM SCH (09:00)
[2022-08-16] MEDS ORDERED: ALBUTEROL HFA 8 GM INHALER INH PRN (10:59)
[2022-08-16] MEDS ORDERED: IPRATROPIUM BROMIDE HFA INHALER INH PRN (11:00)
--- NOTE | 2022-08-16 12:41 | Discharge Summary ---
Date of Service August 16, 2022 Admission HPI Per Admitting Provider Chief Complaint: painful lump in left grain x 1 day Primary Care Provider: Albert Sharma MD Emerson Bailey is an 82 y/o male with past medical history of CAD s/p CABG in January complicated by afib, HFrEF, LBBB, ischemic cardiomyopathy, hypertension, severe hearing loss, BPH, prediabetes who presents today with left leg pain. He was seen in our ED 2 days ago on 08/08 for a left leg abscess. This was drained, he was provided a dose of Rocephin, and d/c'd home with doxycycline, first dose taken today as his pharmacy was closed yesterday due to the holiday. He is representing today with additional redness, swelling in his left anterior/medial thigh and pain with ambulation. Bedside U/S in ED revealed a 4 x 6.5 cm loculated fluid collection, this was drained , revealing bloody, somewhat purulent fluid, both blood and fluid cultures were sent off. He also reports wheezing and coughing over the past day to start this morning. Feels like he has "lungs full of mucus" and feels generally congested. He has not had any fever or chills, shortness of breath, chest pain, or any weight gain. Dry weight reported by HF clinic to be 175 lbs. No history of COPD, but lived with his for many years who was a regular smoker. Upon presentation, VS wnl and stable. Labs unrevealing; without leukocytosis, electrolyte abnormalities, impaired renal function. Lactate pending. CXR with cardiomegaly, no vascular congestion or infectious process noted. Admission Exam Per Admitting Provider General: awake, alert, no apparent distress Head: Normocephalic, atraumatic ENT: PERRL, EOMI, no pharyngeal exudate, mucous membranes moist Chest: expiratory wheezing heard throughout lung boles; on RA Cardiac: Regular rate and rhythm, no murmur, no JVD, normal peripheral pulses, good capillary refill Abdominal: NABS x 4 quadrants, soft, nontender to palpation, no rebound, guarding or tenderness Extremities: LLE recently wrapped s/p drainage, but can appreciate some erythema extending past medial knee into thigh region; minimally TTP Psych: Normal mood and affect Neuro: AAO x 3, strength intact bilaterally and rated 5/5, no motor deficits, speech is clear, no peripheral sensory deficits Skin: no rash or erythema Principal Diagnosis LEFT THIGH ABSCESS Discharge Exam gen - looks great, sitting up in chair, NAD, doing crossword puzzles ears - hearing impairment (severe) neck - no JVD chest- prior sternotomy scar noted heart - RRR, s1 s2, 2/6 systolic murmur LSB lungs - faint end-exp wheezing b/l with improved aeration, almost resolved; no rales, on room air 97% abd - minimally distended (less), BS+, NT, no HSM ext - no edema RLE; trace edema left foot/ankle; pulses b/l feet 2+ skin - left medial thigh - dressings lifted up - abscess site with central incision about 1.5cm in length, packing in place; swelling, erythema ALL resolved; no surrounding cellulitis, angelia pad in place Discharge Data Allergies Allergy/AdvReac Type Severity Reaction Status Date / Time Sulfa (Sulfonamide AdvReac Intermediate Nausea, Verified 08/10/22 19:55 Antibiotics) Weakness, Dizziness Consultations 08/10/22 18:36 ED Decision to Admit Stat 08/11/22 17:39 Consult General Surgery Routine Procedures Performed Operation Date: 08/12/22 12:00 Actual Procedures p Incision and Drainage Left Thigh Abscess(Left) - Jeffry De La Garza MD Ordered Studies Chest X-Ray 08/10/22 17:29 XR chest 1V portable HISTORY: 82 years-old Male cough, flu like symptoms acute cough COMPARISON: CTA chest 08/02/2022 TECHNIQUE: Portable AP view of the chest FINDINGS: Cardiac silhouette is enlarged. Prior median sternotomy and CABG. Subsegmental bibasilar atelectasis with unchanged blunting of the left costophrenic angle. No pneumothorax, large pleural effusion or overt pulmonary edema. Degenerative changes of the shoulders and spine. IMPRESSION: Cardiomegaly with mild bibasilar atelectasis. ACT 112: Negative or not required by law. The above report was generated using voice recognition software. It may contain grammatical, syntax or spelling errors. Electronically signed by: Salty Rodrigues M.D. 08/10/2022 7:29 PM Vascular Ultrasound 08/11/22 14:24 ULTRASOUND SOFT TISSUES LEFT THIGH NONVASCULAR CLINICAL HISTORY: Pain and swelling with a palpable lump. Clinical concern for abscess. COMPARISON STUDY: No priors. FINDINGS: Real-time grayscale and color flow sonography of the medial left thigh soft tissues is performed at the indicated site of interest. There is a complex nonvascular fluid collection at the site which measures 6.5 x 2.4 x 3.5 cm. This is located approximately 3 mm deep to the dermal surface. Surrounding soft tissue edema is noted. IMPRESSION: Complex nonvascular fluid collection in the medial left thigh at the site of interest. Top differential considerations include abscess or hematoma. Clinical correlation will be required and clinical follow-up to resolution is recommended. Electronically signed by: Liborio Newton M.D. 08/11/2022 5:17 PM Hospital Course (1) Abscess of skin: PResented with LEFT thigh abscess, seen in ER 08/08 and culture sent, given dose of Rocephin and d/c on PO Doxycycline Of note, patient with CABG earlier this year w/ SVG harvested from site of concern and patient with ongoing "knot" and reported drainage from site in past -- suspect given prior infection to chest wall this has been there for a while Was again seen in ER s/p ID on 08/10 and culture with klebsiella Vascular ultrasound obtained --> Complex nonvascular fluid collection in the medial left thigh at the site of interest. Top differential considerations include abscess or hematoma. Clinical correlation will be required and clinical follow-up to resolution is recommended. General surgery consulted s/p I&D with Dr De La Garza on 08/12 OR Cultures with KLEBSIELLA, pansensitive Blood cultures NGTD after 5 days Daily packing changes -- wound clinic arranged for tomorrow 930am, daughter RN and can assist w/ subsequent changes but worried initially about compliance Initially on cefepime/vanco until cultures resulted --> switched to Ancef IV 08/13 and planned to continue PO KEFLEX at discharge to complete 10 day course WBC elevation likely 2nd to steroid use for below -- bronchitis. Remained afebrile --> sent on decadron taper, inhalers, mucinex Of note, had developed am ANDREINA after IV lasix for volume overload on 08/11-08/12 given hx CHF followed by CHF clinic -- discussed with anshul and they had been giving lasix QOD and aldactone was newer medication. Dry weight ~175lb, was 177lb on 08/15 and dry weight to 167lb on AM standing scale. Discussed with anshul and CHF clinic (appt moved up to next week) and was able to resume entresto without drop in BP and instructed to resume aldactone at discharge and hold his lasix for now and monitor for any weight gain while completing course of steroids. Encouraged LOW salt diet (they do try to keep him w/ restrictions, but notes he does like salt). Metoprolol was decreased to 12.5mg (had been on lower dose in past as well) (2) ANDREINA (acute kidney injury): baseline Cr 1 to 1.2 Given IV lasix as above, developed Andreina to Cr 1.7, likely 2nd to over diuresis and low normal BPs. Metoprolol decreased to 12.5mg daily Held diuretics/entresto Cr improved back to baseline 1.07 after resumption of entresto Lasix HELD/DISCONTINUED for now at d/c, instructed to monitor for any weight gain To resume his Aldactone per discussion with CHF clininc/monitor weights Low salt diet encouraged (3) Acute bronchitis: IMPROVED Respiratory biofire surprisingly negative. [id number] clinical picture most c/w acute viral bronchitis. Wheezing improved with institution of IV dexamethasone 6mg daily on 08/12, d/c after dose 08/14 and changed to decadron 4mg daily Continued mucinex BID, combivent inhaler, tessalon pearls at discharge Decadron taper at discharge to complete course, monitor weights for fluid retention Stable on room air -- prior 93% --> 97% prior to discharge (4) Hypomagnesemia: repleted resolved (5) CAD (coronary artery disease): s/p 3 vessel CABG in January of this year, complicated by post-op a fib, ischemic cardiomyopathy, LBBB, HFrEF. Echo April 2022: EF 25-30% w mild-moderate MR. Continued Plavix, metoprolol, nitrates Diuretics held as above for ANDREINA after IV diuretics earlier in the stay BP stable/Cr improved and Entresto resumed, remained stable Meds for d/c as outlined above Not on statin -- refuses by report No CP reported/ischemic symptoms (6) Ischemic cardiomyopathy: Secondary CAD. s/p CABG earlier this year Medications as above -- continued on plavix/metoprolol/nitrates No ischemic symptoms Not on statin Aldactone resumed at discharge (7) Chronic systolic heart failure: EF 25-30% with mild MR. Dry weight ~175 lb. Developed ANDREINA 08/13 from over-diuresis as above Diuretics placed on hold, entresto resumed 08/15 and tolerated well Discussed w/ CHF clininc as above, weight down and had been off lasix for several days, 167lb Plans for f/u appt next week and to continue aldactone at discharge but hold off further lasix for now and monitor weights/low salt diet at discharge (8) Paroxysmal atrial fibrillation: Isolated incident in January s/p CABG, d/c'd on Xarelto and metoprolol, short term amiodarone since discontinued Continued metoprolol albeit at lower dose of 12.5mg daily (due to recent low BPs). Cont'd Xarelto. (9) Benign prostatic hyperplasia: Continued finasteride, flomax Flomax held temporarily due to low BP, resumed at d/c No issues reported with voiding, UOP acceptable (10) Hearing loss: severe, b/l (11) B12 deficiency: checked given prior lows, low normal at 244 and given IM x 1 inpatient prior to discharge, continued PO at d/c (12) Folate deficiency: checked given prior lows, not on supplementation as outpatient Folate LOW 3.2 -- replacement ordered -- to continue at discharge Total Time Total Time Spent Total Time Spent (In Minutes): 90 Discharge Plan Discharge Items Patient Disposition: Home - Self-Care Reason For Visit: ABSCESS Discharge Diagnosis: LEFT thigh abscess Goals: You have been hospitalized for an urgent problem which required surgery. During your stay at [facility], we have made an effort to correct the problem that brought you to the hospital while keeping you as comfortable as possible. Surgery and medications were used to bring your condition under control and your discharge instructions will include directions for any medications you should take after leaving the hospital. Please make sure to follow the advice of your surgeon regarding follow up with the surgeon and with your primary care provider. Activity: As commented below Non-emergency contact: Primary Care Provider and Surgeon Call non-emergency contact if: you have any medication questions, your symptoms worsen, your pain is concerning for you, you have a fever, your wound has increased redness and your wound has increased drainage Follow-up/Referrals: Albert Sharma MD [Primary Care Provider] - 08/22/22 11:00 am Jeffry De La Garza MD [Physician] - Anupama Alcazar PA-C [Physician [employer]] - 08/28/22 4:00 pm Diet: Heart Healthy Addtl Attending Provider Instructions: You have been hospitalized for an abscess of your thigh. General surgery was consulted and you had this drained. Cultures show bacteria called KLEBSIELLA that were grown in the culture and antibiotics were provided in IV form and you will continue oral Cephalexin at discharge. This should be 500mg by mouth TWICE daily for another five days based on your kidney function to complete a ten day course. You should follow up with wound clinic for daily packing changes to the wound. Your primary care provider may consider extending antibiotics up to 14 days if having any ongoing issues. Arrangements are being made to have wound care follow up, but you may need to pack these over the weekend when they are not open. Your blood pressure was on the lower side after additional diuretics were provided and your Aldactone (spironolactone) and Lasix as well as Entresto were placed on hold and your kidney function returned to normal. We decreased your metoprolol to 12.5mg daily as it was previously reduced to in the past to prevent drops in your blood pressure. You will continue your Aldactone (spironolactone), but should continue to hold your Lasix for now. Please monitor weights at home as you will be on Decadron (steroid) for bronchitis and this can cause fluid retention/weight gain and you may need a dose or two if weights >3lb in 24 hours or >5lb in a week. You will continue Decadron, which will be decreased to 3mg tomorrow and you should decrease this by 1mg every other day to complete the course. You should follow up with the CHF clinic (Isabel Alcazar PA-C) to monitor your weights/diuretics given prior report/attempt to get you off your Lasix. You should monitor your free water intake at home and should try and limit your sodium intake, which worsens heart failure/breathing. I also checked a B12 and folate level given prior values were low and they were still low. I have given you an injection of B12, and started oral supplementation which should be continued for both at discharge. Please follow up with your PCP in the next 7-10 days to monitor your progress. Please return to the emergency department if you have any fever/chills, chest pain, shortness of breath, increased redness/swelling/drainage, or for any other symptoms concerning for you. It has been a pleasure being a part of the medical team providing for you while you have been in the hospital. Take care! Pending Studies at Discharge: Yes Studies:: Blood cultures -- no growth to date Stand-Alone Forms: My [facility] Medications and DC Order Prescriptions: New cephalexin 500 mg Capsule 500 mg PO BID 5 Days Qty: 10 0RF albuterol sulfate [Ventolin HFA] 90 mcg/actuation Hfa Aerosol Inhaler 1 puff inhalation BIDR Qty: 6.7 0RF Atrovent HFA 17 mcg/actuation Hfa Aerosol Inhaler 1 puff inhalation BIDR Qty: 12.9 0RF guaifenesin [Mucinex] 600 mg Tablet Extended Release 12hr 1,200 mg PO Q12 Qty: 14 0RF benzonatate 100 mg Capsule 100 mg PO TID 7 Days Qty: 21 0RF dexamethasone 2 mg tablet See Rx Instructions .ROUTE .COMPLEX Qty: 6 0RF Rx Instructions: take 3mg (1.5 tablets) by mouth for 2 days, then decrease to 2mg (1 tablet) x 2 days, then 1mg (0.5tablet) x 2 days to complete taper cyanocobalamin (vitamin B-12) 1,000 mcg capsule 1,000 mcg PO DAILY Qty: 30 0RF folic acid 1 mg tablet 1,000 mcg PO DAILY Qty: 30 0RF Continued clopidogrel 75 mg tablet 75 mg PO QAM Qty: 90 3RF isosorbide dinitrate 5 mg tablet 5 mg PO TID Qty: 270 1RF Rx Instructions: TAKES QAM, 1400, & HS. allow nitrate-free interval of 12-14 hrs per 24-hr period pantoprazole 40 mg tablet,delayed release (DR/EC) 40 mg PO DAILY Qty: 90 3RF finasteride 5 mg tablet 5 mg PO QAM Qty: 90 3RF Xarelto 15 mg tablet 15 mg PO QDD Qty: 90 3RF Rx Instructions: must administer with evening meal Remeron 15 mg tablet 15 mg PO HS Qty: 90 1RF Entresto 24-26 mg tablet 1 tab PO BID spironolactone 25 mg tablet 25 mg PO DAILY Qty: 30 2RF nitroglycerin [Nitrostat] 0.4 mg tablet, sublingual 0.4 mg sublingual Q5M PRN (Reason: chest pain) Qty: 30 3RF Rx Instructions: do not exceed 3 doses per episode tamsulosin 0.4 mg capsule 0.4 mg PO QAM Changed metoprolol succinate 25 mg tablet extended release 24 hr 12.5 mg PO QAM Qty: 90 3RF Discontinued potassium chloride 10 mEq tablet extended release 10 meq PO Q OTHER DAY furosemide 40 mg tablet 40 mg PO Q OTHER DAY doxycycline hyclate 100 mg capsule 100 mg PO BID 10 Days Qty: 20 0RF Discharge Orders: Discharge Order (Routine); Ordered 08/16/22 Ordered By: Ashley Burdick Admission Data Admit Date/Time: 08/10/22 19:06 Attending Provider: Elis Garcia Admit Provider: Adis Garcia Primary Care Provider: Albert Sharma Other Providers: Adis Garcia ; Jeffry De La Garza ; Lew Calderon Other Interventions: Discharge Summary Assessment (RN) Last Done: 08/16/22 12:42 Supervising Physician Co-Signing Physician Notes PA Supervision Note: I personally saw and examined the patient. I verified all morales points and agree with RENE Burdick with the following exceptions and/or additions: Summary of present stay: 82-year-old male past medical history significant for recurrent left lower extremity abscess, atrial fibrillation, CAD and ischemic cardiomyopathy, hearing loss, chronic systolic heart failure admitted for recurrence of left medial lower extremity abscess. Had incision and drainage on 08/12, OR cultures grew p ansensitive Klebsiella, and blood cultures no growth to date collected 5 days ago. Has had daily packing changes, and has wound clinic care arranged for tomorrow at 9:30 AM, and patient's daughter who is a nurse will assist with subsequent changes. Was initially on Vanco/cefepime, ultimately discharged on p.o. Keflex given pansensitive Klebsiella. Patient's WBC elevated however has been on steroids for bronchitis. Patient had an ANDREINA this admission to creatinine of 1.7 in the setting of expected overdiuresis, with a baseline creatinine of around 1.1. Diuretics were held through admission, with improvement in creatinine to 1.07. For CHF, with though diuretics were held, Aldactone was resumed. CHF clinic is on board and will have close follow-up with them. Low-salt diet was discussed in detail with patient and with family. Bronchitis: Respiratory bio fire negative. Wheezing improved with IV dexamethasone, transitioned to p.o. with taper on discharge. Continue Mucinex, Combivent, Tessalon Perles for cough. No supplemental oxygen. Physical exam: Vitals reviewed Gen: Alert and oriented, NAD HEENT: anicteric sclerae, EOMI, severely hard of hearing CV: Heart rate irregularly irregular, systolic murmur, nl S1S2 Pulm: Intermittent and expiratory wheezing but relatively good aeration, good air movement, no respiratory distress Abd: +BS soft NT ND no masses Ext: Trace peripheral edema bilaterally to the level of the ankle Skin: Left medial thigh with dressing intact, underneath 1 cm incision with packing. No surrounding erythema Neuro: No focal neurologic deficits Labs, Rads reviewed Coding Level of Care Code D/C DAY MANAGEMENT >30 MINS Diagnoses Abscess of skin L02.91 ANDREINA (acute kidney injury) N17.9 Acute bronchitis J20.9 Hypomagnesemia E83.42 CAD (coronary artery disease) I25.10 Ischemic cardiomyopathy I25.5 Chronic systolic heart failure I50.22 Paroxysmal atrial fibrillation I48.0 Benign prostatic hyperplasia N40.0 Hearing loss H91.90 B12 deficiency E53.8 Folate deficiency E53.8
--- NOTE | 2022-09-21 07:33 | Coding Query ---
CODING QUERY To promote full compliance with coding requirements relating to patient care, provider participation is requested in all cases of track welder uncertainty. Please assist us with the question(s) below: Coding Question(s): Please clarify if this was a post op complication. Per the H&P the abscess is at the site of the saphenous vein harvest. Physician's Response(s):This abscess was suspected to be a post-op complication. The abscess developed many months after surgery, however it was located at the surgical site and patient had had intermittent non-purulent drainage from the site several times prior to admission for abscess. Thank you Breanne Brand Principal Diagnosis: "that condition established after study, to be chiefly responsible for occasioning the admission of the patient to the hospital for care." Co-Existing Principal Diagnosis: "when two or more diagnoses equally meet the criteria for principal diagnosis as determined by the circumstances of admission, diagnostic work up, and/or therapy provided, and the Alphabetic Index, Tabular List, or another coding guideline does not provide sequencing direction, any one of the diagnoses may be sequenced first." "When the physician has documented what appears to be a current diagnosis in the body of the record, but has not included the diagnosis in the final diagnostic statement, the physician should be asked whether the diagnosis should be added." (Source Coding Clinic 2 QTR90. p3-4) MEI
== END 2022-08-16 16:30 | disposition home or self-care (01) | DRG 603 ==
LOC: ED 16:43 → 2N 19:06 → SUATTDRO 19:06 → 2N 21:29